=== PATIENT | male | born 1940 | race Caucasian/White ===

== ENCOUNTER → 2019-03-01 | Outpatient (CLI) | payer MEDICARE, OTHER ==
--- NOTE | 2019-03-02 20:14 | MR ---
EXAMINATION TYPE: MR lumbar spine wo con DATE OF EXAM: 03/01/2019 COMPARISON: NONE HISTORY: Low back pain into the left hip per patient. Osteoarthritis and disc degeneration per order. TECHNIQUE: Multiplanar, multisequence imaging of the lumbar spine is performed without IV contrast. FINDINGS: Sagittal images of the lumbar spine show vertebral body heights and alignment to appear sat isfactory. There is multilevel disc desiccation and disc space narrowing with advanced disc space vira rowing noted L3-L4 and L4-L5 levels. There is moderate to advanced multilevel anterior spurring. The conus medullaris is normal in position and signal ending at L1 level. There is heterogeneous Modic t ype II endplate changes at L3-L4 and to lesser degree L4-L5 levels. Axial images at the T12-L1 level shows moderate facet degenerative changes and ligamentum flavum hype rtrophy with mild broad disc bulge minimally effacing the anterior thecal sac. Axial images at the L1-L2 levels [id number] broad disc bulge effacing the anterior thecal sac w ith [id number]-lc-[id number] facet degenerative changes bilaterally effacing the posterior lateral thecal sac on axial image 23. Bilateral neural foramina remain patent. Axial images at the L2-L3 level shows moderate facet degenerative changes and ligamentum flavum hyper trophy effacing the posterior lateral thecal sac. There is moderate to advanced broad disc bulge with left paracentral disc protrusion component on axial image 18 effacing the anterior thecal sac. There is moderate left and mild right-sided inferior neural foraminal narrowing. Axial images at L3-L4 level show moderate to advanced facet degenerative changes bilaterally. Subtle spondylolisthesis is present. There is moderate to advanced broad disc bulge effacing the anterior th ecal sac. There is moderate to advanced right greater than left bilateral anterior inferior neural fo raminal narrowing. Axial images at the L4-L5 level show advanced broad disc bulge with central disc protrusion component and moderate to advanced facet degenerative changes bilaterally. There is effacement the anterior an d posterior lateral thecal sac with advanced left and moderate to advanced right-sided neural foramin al narrowing. Encroachment left L4 nerve is seen sagittal image 1 and axial image 8. Axial images at the L5-S1 level shows ckgp-mg-azdaopgx facet degenerative changes bilaterally. There is left paracentral disc protrusion effacing the anterior thecal sac. There is moderate to advanced b ilateral neural foraminal narrowing. There are several T2 hyperintense lesions throughout both kidneys felt to reflect simple thin-walled cysts. IMPRESSION: Multilevel fairly moderate to severe degenerative changes as detailed above.
--- NOTE | 2019-03-02 20:23 | MR ---
EXAMINATION TYPE: MR hip LT wo con DATE OF EXAM: 03/01/2019 COMPARISON: None HISTORY: Low back pain into the left hip Standard multiplanar, multisequence MRI departmental protocol Multiplanar, multisequence images of the pelvis focusing on the left hip were acquired. FINDINGS: There is moderate axial joint space loss in both hips, left slightly greater than right. No significant acetabular spurring is seen. There is heterogeneous round area of diminished T1 and incr eased T2 signal involving the superior medial humeral head with some subchondral cystic change seen b est coronal image 9 and axial image 14 measuring over a roughly 1.5 cm round area with some tiny subc hondral cystic change towards the joint space felt present. Some low T1 signal with slight scalloping is noted coronal image 8 and axial image 14. Adjacent glenoid shows some increased T2 signal. No cor tical destruction or free fragments are present. There are small to moderate left slightly larger oscar n the right hip joint effusions noted. Muscle bulk bilateral thighs is symmetric and felt within normal limits. No groin adenopathy. No susp icious groin hernias. Some increased signal level of greater trochanters bilaterally, left greater th an right is noted consistent with mild to moderate trochanteric bursitis. Prostate gland is heterogeneous in appearance and slightly enlarged suggestive of underlying BPH. No suspicious bowel dilatation. There is moderate to severe disc space narrowing L4-L5 and L5-S1 levels. IMPRESSION: Moderate to advanced left greater than right hip degenerative changes as detailed above w ith osseous edema noted on the left.
== END | disposition home or self-care (01) ==
LOC: RADMRIMAIN 13:35
PROVIDERS: ATTEND Family Medicine
DX: M47.817 Spondylosis without myelopathy or radiculopathy, lumbosacral region (principal); M47.816 Spondylosis without myelopathy or radiculopathy, lumbar region; M16.12 Unilateral primary osteoarthritis, left hip
CPT/HCPCS: 72148

== ENCOUNTER → 2019-04-17 | Outpatient (CLI) | payer MEDICARE | END | disposition home or self-care (01) | LOC: LABPAT 10:13 | PROVIDERS: ATTEND Orthopaedic Surgery | DX: Z01.812 Encounter for preprocedural laboratory examination (principal) | CPT/HCPCS: 87070 ==

== ENCOUNTER 2019-04-28 06:28 | Inpatient (IN) | payer MEDICARE, OTHER ==
--- NOTE | 2019-04-27 09:42 | HP ---
HISTORY AND PHYSICAL REASON FOR ADMISSION: Surgery is 04/28/2019 HISTORY OF PRESENT ILLNESS: Amari Silva is a 78-year-old patient seen with symptomatic left hip osteoarthritis. After having treatment options discussed with him, he elected to proceed with direct anterior left total hip arthroplasty. Consent regarding the procedure was obtained. Medical clearance was provided by Dr. Yefri Castro. PAST MEDICAL HISTORY: Hyperlipidemia, hypertension, zkm-qnmhwqx-qhotquhme diabetes, COPD. PAST SURGICAL HISTORY: Bilateral knee arthroscopy, lumbar laminectomy. MEDICATIONS: Aspirin, lisinopril, Norvasc, atorvastatin, metformin. ALLERGIES: ERYTHROMYCIN AND PENICILLIN. SOCIAL HISTORY: Denies current tobacco use. PHYSICAL EXAMINATION: Evaluation of the left hip: His range of motion is very limited with severe pain. Positive hip impingement sign. Straight leg raise negative. His distal neurovascular exam is intact. RADIOGRAPHS: Left hip radiographs reveal severe osteoarthritic changes. IMPRESSION: 1. Left hip osteoarthritis. 2. Hypertension. 3. Hyperlipidemia. 4. Teq-raimwbx-flonrnamy diabetes. PLAN: Direct anterior left total hip arthroplasty. Surgery scheduled for 04/28/2019. MMODL / IJN: [id number] /
[~2019-04-28 06:28] MED LIST: ACETAMINOPHEN TAB 500 MG TAB PO ONE; MELOXICAM 7.5 MG TAB PO ONE; TRANEXAMIC ACID 1,000 MG in SODIUM CHLORIDE 0.9% 100 ML IVPB ONE; ceFAZolin IN SWFI 2 GM/20 ML SYRINGE IVP ONE
[2019-04-28] MEDS ORDERED: ONDANSETRON 4 MG/2 ML VIAL IVP ONE (06:52)
[2019-04-28] MEDS ORDERED: LIDOCAINE 1% 20 ML VIAL (10MG/ML) FOR IV START INTRADERMA PRN (06:52)
[2019-04-28] MEDS ORDERED: DEXAMETHASONE SOD PHOSPHATE 10 MG/ML 1 ML VIAL IV ONE (06:52)
[2019-04-28] MEDS ORDERED: MIDAZOLAM 2 MG/2 ML VIAL IV PRN (06:52)
[2019-04-28] MEDS: LACTATED RINGERS 1,000 ML IV SCH (07:09)
[2019-04-28 07:16] LABS: Glucose,Whole Blood 117 mg/dL (75-99)
[2019-04-28] MEDS ORDERED: PROPOFOL 10 MG/ML 20 ML VIAL IV ONE (07:24)
[2019-04-28] MEDS ORDERED: ePHEDrine SULFATE/0.9% NACL/PF 50 MG/5 ML SYRINGE IV ONE (07:24)
[2019-04-28] MEDS ORDERED: fentaNYL (PF) 50 MCG/ML 2 ML AMP ONE (07:24)
[2019-04-28] MEDS ORDERED: MORPHINE SULFATE 10 MG/ML SYRINGE ONE (07:24)
[2019-04-28] MEDS ORDERED: MIDAZOLAM 2 MG/2 ML VIAL ONE (07:24)
[2019-04-28 07:25] LABS: Prothrombin Time 10.8 sec (9.0-12.0)
[2019-04-28] MEDS ORDERED: ROPIVACAINE 246.25 MG, EPINEPHrine 0.5 MG, KETOROLAC 30 MG, cloNIDine HCL/PF 80 MCG, WA... MISCELLANE ONE ×5 (07:38)
[2019-04-28] MEDS ORDERED: ceFAZolin 3,000 MG in SODIUM CHLORIDE 0.9% IRRIGATIO 3,000 ML IRRIGATION ONE (08:17)
[2019-04-28] MEDS ORDERED: LACTATED RINGERS 1,000 ML IV ONE (09:31)
[2019-04-28] MEDS ORDERED: HYDROcodone/APAP 5-325MG 1 EACH TAB PO PRN (09:37)
[2019-04-28] MEDS ORDERED: HYDROmorphone 0.5 MG/0.5 ML SYRINGE IVP PRN ×3 (09:37)
[2019-04-28] MEDS ORDERED: ONDANSETRON 4 MG/2 ML VIAL IVP PRN (09:37)
[2019-04-28] MEDS ORDERED: traMADol 50 MG TAB PO PRN (09:37)
[2019-04-28] MEDS ORDERED: NALOXONE 0.4 MG/ML 1 ML VIAL IV PRN (09:37)
--- NOTE | 2019-04-28 09:37 | P.OP ---
Date of Procedure: 04/28/19 Preoperative Diagnosis: Left hip osteoarthritis Postoperative Diagnosis: Left hip osteoarthritis Procedure(s) Performed: Direct anterior left total hip arthroplasty Implants: 1. Depuy Corail KLA size 14 high offset press-fit femoral stem 2. Depuy pinnacle 58 mm multi hole press-fit acetabular shell 3. Depuy pinnacle neutral polyethylene acetabular liner 36 mm ID 58 mm OD 4. Biolox delta ceramic femoral head +5 36 mm Anesthesia: local, spinal Surgeon: Reinier Rios Furnace Tapper #1: Eric Johnson Estimated Blood Loss (ml): 500 Pathology: other (Femoral head) Condition: stable Disposition: PACU Indications for Procedure: 78-year-old patient seen with symptomatic left hip osteoarthritis. After we discussed treatment options, he elected to proceed with left total hip arthroplasty. Operative Findings: see description of procedure Description of Procedure: The patient was taken to the operative suite. Patient underwent a spinal anesthetic by the department of anesthesia. Patient was then transferred to the [place] table. Patient was given preoperative IV antibiotics and TXA. Both lower extremities were placed in standard leg spars. The hip was then prepped and draped in the normal sterile orthopedic fashion. A standard anterior incision was made beginning 3 cm lateral and 1 cm distal to the ASIS extending 10 cm. Dissection was then carried down through the subcutaneous soft tissues down to the fascia overlying the tensor fascia jay. An incision was now made through the fascia. Careful dissection was taken down exposing the tensor fascia jay muscle. A Cobra retractor was now placed along the medial femoral neck and a second one along the lateral femoral neck. The venous circumflex vessels were now identified, cauterized and clipped. We identified the anterior hip capsule. An incision was made through the hip capsule along the lateral border. I performed a partial anterior capsulectomy. Retractors were now placed around the femoral neck itself. A femoral neck cut was now made with a sagittal saw. It was completed with an osteotome at the lateral neck area. The femoral head was now removed without difficulty. The extremity was now rotated to 45 of external rotation. It was locked in position. Residual labrum was now debrided out. Serial reaming was performed of the acetabulum while Vikram VINCENT assisted holding an anterior retractor for exposure. Once we reached the appropriate size and a trial was position and fit nicely. The appropriate size was now chosen opened and made available. It was introduced into the acetabulum without difficulty. The C-arm/fluoroscopy was now brought into the operative field. We made sure we had a true AP pelvic view. We now under direct C- arm/fluoroscopy introduced into the acetabular component with appropriate version and inclination. I held the cup in appropriate position well Vikram VINCENT used a mallet to seat the acetabular component. I noted the component now to be well seated and stable. Acetabular cup introduce her was removed. The C-arm was pulled back. An appropriate liner was introduced and clicked into position. It was felt to be stable. At this point retractors were removed. The extremity was now placed into 120 external rotation with no traction. The leg was now dropped to the ground and adducted. Appropriate retractors were now positioned along the proximal femur. We also placed our femoral look into position. Additional capsular releasing was performed to gain access to the proximal femur. We now used a box osteotome. A canal finder was now utilized. Serial broaching was now performed with the assistance of Vikram VINCENT tapping the broaches down with a mallet while held the broach in appropriate rotation and position. This was done until we reached the appropriate size with good overall rotational stability. Appropriate calcar planing was performed. A trial head/neck was placed into position. The hip was now reduced. The C- arm/fluoroscopy was brought back into the operative field. A spot film was obtained of the nonoperative hip. A spot film was obtained of the trial components. Overlays were performed, we noted good overall alignment and positioning for determining leg length. The C-arm/fluoroscopy was pulled back. Retractors were repositioned and the hip was dislocated. The leg was again taken down to the ground and adducted. Appropriate retractors were repositioned as well as the femoral hook. All trial components were removed. The femoral implant was opened along with the femoral head. The femoral implant was introduced on the appropriate handle into our pre-broached area. I held the component position well Vikram VINCENT used a mallet to seat the femoral component. The femoral component was now noted to be well seated and stable.. The femoral head was introduced with good positioning and fixation noted. Retractors were now removed. The hip was now reduced. There appeared be good positioning of the hip confirmed on intraoperative fluoroscopy. Spot films were obtained to document this. A second gram of TXA was given. The deep and superficial soft tissues were infiltrated with local analgesic. Bipolar cautery had been utilized intermittently through the procedure for hemostasis. The wound was irrigated copiously with pulse lavage mechanical irrigation. The fascia was repaired with Vicryl suture. The subcutaneous soft tissues were repaired in layers with Vicryl suture. The skin was approximated with pernio/Dermabond. Sterile dressings were applied. Patient was then awakened, transferred to a bed and taken to recovery in stable condition. Vikram VINCENT assisted with the complex procedure.
--- NOTE | 2019-04-28 10:36 | FL ---
Fluoroscopy INDICATION: Pain FINDINGS: Fluoroscopy time: 42 seconds. Images obtained: 1. IMPRESSIONS: 1. Documentation of fluoroscopy.
--- NOTE | 2019-04-28 10:40 | XR ---
Fluoroscopy INDICATION: Pain FINDINGS: Fluoroscopy time: 42 seconds. Images obtained: 1. Single image over the left hip prosthesis placed. IMPRESSIONS: 1. Documentation of fluoroscopy.
[2019-04-28 10:41] LABS: HCT 39.2 % (39.0-53.0); HGB 12.4 gm/dL (13.0-17.5); MCH 28.6 pg (25.0-35.0); MCHC 31.6 g/dL (31.0-37.0); MCV 90.5 fL (80.0-100.0); Mean Platelet Volume 7.1; Platelet Count 233 k/uL (150-450); RBC 4.34 m/uL (4.30-5.90); RDW 13.4 % (11.5-15.5); WBC 15.4 k/uL (3.8-10.6)
[2019-04-28 10:48] LABS: Glucose,Whole Blood 179 mg/dL (75-99)
[2019-04-28 15:08] VITALS: BMI 27.4
[2019-04-28] MEDS: SODIUM CHLORIDE 0.9% 1,000 ML IV SCH (15:50)
[2019-04-28] MEDS: ceFAZolin IN SWFI 2 GM/20 ML SYRINGE IVP SCH ×2 (15:50→23:36)
[2019-04-28 17:01] LABS: Glucose,Whole Blood 270 mg/dL (75-99)
[2019-04-28 17:15] LABS: Glucose,Whole Blood 223 mg/dL (75-99)
[2019-04-28] MEDS: HYDROcodone/APAP 5-325MG 1 EACH TAB PO PRN (19:11)
[2019-04-28 20:13] LABS: Glucose,Whole Blood 224 mg/dL (75-99)
[2019-04-28] MEDS ORDERED: amLODIPine 10 MG TAB PO SCH (21:00)
[2019-04-28] MEDS ORDERED: LISINOPRIL 20 MG TAB PO SCH (21:00)
[2019-04-28] MEDS ORDERED: SENNOSIDES-DOCUSATE SODIUM 1 EACH TAB PO SCH (21:00)
[2019-04-28] MEDS ORDERED: metFORMIN 500 MG TAB PO SCH (21:00)
[2019-04-28] MEDS ORDERED: ATORVASTATIN 20 MG TAB PO SCH (21:00)
--- NOTE | 2019-04-28 23:46 | P.CONS ---
History of Present Illness - Reason for Consult Consult date: 04/28/19 Medical management Requesting physician: Reinier Rios - Chief Complaint Left hip pain - History of Present Illness Consultation: This is a pleasant 78-year-old patient of Dr. Castro. We'll make stable medical conditions include diabetes, hyperlipidemia, hypertension, primary osteoarthritis. Patient also seems to have single-vessel coronary artery disease. He was told by his mapping engineer at the did attempt to put in a stent but the vessel was too small and hence it was left like that. He's not had any further trouble with that. Patient today underwent left total hip arthroplasty. Has minimal pain. No nausea vomiting. No chest pain. Did tolerate her meals. Sitting up in bed. Comfortable. Review of systems: GEN.: None EYES: None HEENT: None NECK: None RESPIRATORY: None CARDIOVASCULAR: None GASTROINTESTINAL: None GENITOURINARY: None MUSCULOSKELETAL: Pain in some joints LYMPHATICS: None HEMATOLOGICAL: None PSYCHIATRY: None NEUROLOGICAL: None. Past medical history to include: Single-vessel coronary artery disease that was not amenable to stent per patient's mapping engineer Social history: Does smoke in the past. . 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 Family history: Possible sarcoma Physical examination: VITAL SIGNS: 98.6, 73, 17, 151/77, 97% on room air GENERAL: BMI 27.2, propped up in bed, comfortable. EYES: Pupils equal. Conjunctiva normal. HEENT: External appearance of nose and ears normal, oral cavity grossly normal. NECK: JVD not raised; masses not palpable. HEART: First and second heart sounds are normal; no edema. LUNGS: Respiratory rate normal; clear to auscultation. ABDOMEN: Soft, nontender, liver spleen not palpable, no masses palpable. PSYCH: Alert and oriented x3; mood and affect normal. NEUROLOGICAL: Cranial nerves grossly intact; no facial asymmetry, power and sensation grossly intact. LYMPHATICS: No lymph nodes palpable in the axilla and neck MUSCULOSKELETAL: Dressing over the left hip. Evidence of OA especially in the hands Investigations, reviewed in the clinical context: White count 15.4 hemoglobin 12.4 Accu-Cheks noted-270, 223, 224 Assessment: -Left total hip arthroplasty -Diabetes mellitus type 2 on oral hypoglycemic -Hyperlipidemia -Essential hypertension -Primary osteoarthritis -Possible single-vessel coronary artery disease, asymptomatic Plan: Home medications resumed. Patient is on Lovenox for DVT prophylaxis. Accu- Cheks will be followed. Care was discussed with the patient. Questions were answered. Thank you Dr. Zmabrano Past Medical History Past Medical History: Diabetes Mellitus, Hyperlipidemia, Hypertension, Osteoarthritis (OA) History of Any Multi-Drug Resistant Organisms: None Reported Past Surgical History: Back Surgery, Heart Catheterization, Orthopedic Surgery Additional Past Surgical History / Comment(s): bilat knees arthoscopy, lumbar laminectomy, colonoscopy, warthins parotid cyst removal Past Anesthesia/Blood Transfusion Reactions: No Reported Reaction Additional Past Anesthesia/Blood Transfusion Reaction / Comm: aggitation with laminectomy anesthesia Past Psychological History: No Psychological Hx Reported Smoking Status: Former smoker Past Alcohol Use History: None Reported Past Drug Use History: None Reported - Past Family History Mother Family Medical History: Cancer Additional Family Medical History / Comment(s): sarcoma ? Medications and Allergies Home Medications Medication Instructions Recorded Confirmed Type Acetaminophen [Tylenol] 650 mg PO [facility] 04/16/19 04/28/19 History Aspirin [Adult Low Dose Aspirin EC] 81 mg PO [facility] 04/16/19 04/28/19 History Atorvastatin [Lipitor] 20 mg PO 04/16/19 04/28/19 History Cholecalciferol (Vitamin D3) 2,000 unit PO [facility] 04/16/19 04/28/19 History [Vitamin D3] Cyanocobalamin [Vitamin B-12] 500 mcg PO [facility] 04/16/19 04/28/19 History Lisinopril 20 mg PO 04/16/19 04/28/19 History Lisinopril-Hctz 20-12.5 mg 1 tab PO [facility] 04/16/19 04/28/19 History [Zestoretic 20-12.5] amLODIPine [Norvasc] 10 mg PO 04/16/19 04/28/19 History metFORMIN HCL 1,000 mg PO 04/16/19 04/28/19 History Allergies Allergy/AdvReac Type Severity Reaction Status Date / Time Penicillins Allergy Rash/Hives Verified 04/28/19 15:10 erythromycin base AdvReac flu like Verified 04/28/19 15:10 symptoms Physical Exam Vitals: Vital Signs Temp Pulse Pulse Resp BP BP Pulse Ox 04/28/19 20:40 98.6 F 73 17 151/77 97 07/08/19 14:46 97.6 F 81 15 155/80 99 04/28/19 13:45 73 16 124/67 98 04/28/19 12:45 67 16 133/74 98 04/28/19 12:15 72 16 119/57 100 04/28/19 11:45 68 16 103/56 98 04/28/19 11:15 56 L 16 108/51 96 04/28/19 10:45 52 L 16 106/51 99 04/28/19 10:30 64 16 113/58 97 04/28/19 10:15 67 18 119/51 97 04/28/19 10:00 59 L 16 122/53 97 04/28/19 09:48 97.0 F L 65 12 111/59 97 04/28/19 07:05 97.7 F 73 16 172/77 98 Intake and Output 04/28/19 04/28/19 04/29/19 14:59 22:59 06:59 Intake Total 1702 240 Output Total 500 Balance 1202 240 Intake: IV 1702 Oral 240 Output: Estimated Blood Loss 500 Other: # Voids 1 # Bowel Movements 1 Results CBC & Chem 7: 04/28/19 10:19 Labs: Abnormal Lab Results - Last 24 Hours (Table) 04/28/19 04/28/19 04/28/19 Range/Units 07:14 09:58 10:19 WBC 15.4 H (3.8-10.6) k/uL Hgb 12.4 L (13.0-17.5) gm/dL POC Glucose (mg/dL) 117 H 179 H (75-99) mg/dL 04/28/19 04/28/19 04/28/19 Range/Units 16:56 17:13 20:10 WBC (3.8-10.6) k/uL Hgb (13.0-17.5) gm/dL POC Glucose (mg/dL) 270 H 223 H 224 H (75-99) mg/dL
[2019-04-29] MEDS: SODIUM CHLORIDE 0.9% 1,000 ML IV SCH (03:43)
[2019-04-29] MEDS: LACTATED RINGERS 1,000 ML IV SCH (03:45)
[2019-04-29 06:45] VITALS: BP 125/62; PULSE 76; RESP 16; TEMP 98.2
[2019-04-29 07:08] LABS: Glucose,Whole Blood 118 mg/dL (75-99)
[2019-04-29] MEDS: HYDROcodone/APAP 5-325MG 1 EACH TAB PO PRN ×2 (07:37→11:48)
[2019-04-29 08:59] LABS: Basophils % (A) 0 %; Eosinophils # (A) 0.1 k/uL (0-0.7); Eosinophils % (A) 0 %; HCT 34.1 % (39.0-53.0); HGB 11.1 gm/dL (13.0-17.5); Lymphocytes # (A) 0.8 k/uL (1.0-4.8); Lymphocytes % (A) 8 %; MCH 28.9 pg (25.0-35.0); MCHC 32.6 g/dL (31.0-37.0); MCV 88.5 fL (80.0-100.0); Mean Platelet Volume 8.1; Monocytes # (A) 0.8 k/uL (0-1.0); Monocytes % (A) 8 %; Neutrophils # (A) 8.5 k/uL (1.3-7.7); Neutrophils % (A) 83 %; Platelet Count 207 k/uL (150-450); RBC 3.85 m/uL (4.30-5.90); RDW 13.9 % (11.5-15.5); WBC 10.3 k/uL (3.8-10.6)
[2019-04-29] MEDS ORDERED: LISINOPRIL-HCTZ 20-12.5 MG 1 EACH TAB PO SCH (09:00)
[2019-04-29] MEDS ORDERED: FAMOTIDINE 20 MG TAB PO SCH (09:00)
[2019-04-29] MEDS ORDERED: ENOXAPARIN 40 MG/0.4 ML SYRINGE SQ SCH (09:00)
[2019-04-29] MEDS ORDERED: CYANOCOBALAMIN 500 MCG TAB PO SCH (09:00)
[2019-04-29 11:33] LABS: Glucose,Whole Blood 131 mg/dL (75-99)
--- NOTE | 2019-04-29 11:35 | P.PN ---
Subjective Progress Note Date: 04/29/19 Principal diagnosis: Status post left total hip arthroplasty Patient evaluated bedside, his is present. He denies no pain. He is ambulating well with therapy. Denies any shortness of breath or chest pain. Objective - Vital Signs Vital signs: Vital Signs Temp 98.2 F 04/29/19 06:42 Pulse 76 04/29/19 10:51 Resp 16 04/29/19 06:42 BP 125/62 04/29/19 06:42 Pulse Ox 99 04/29/19 01:41 Intake & Output 04/28/19 04/29/19 04/29/19 18:59 06:59 18:59 Intake Total 1942 Output Total 500 Balance 1442 Intake: IV 1702 Oral 240 Output: Estimated Blood Loss 500 Other: Voiding Method Toilet # Voids 2 # Bowel Movements 1 - Exam Left lower extremity: Incision is clean, dry, and intact. The exofin fusion tape is in good condition. There is minimal soft tissue swelling and ecchymosis surrounding the medial and lateral aspects of the incision. Calf is soft, no tenderness with palpation. Plantar flexion, dorsiflexion, EHL, FHL are intact. Sensory exam to light touch throughout the extremity is intact, dorsal pedis pulses 2+. - Labs CBC & Chem 7: 04/29/19 08:27 Labs: Abnormal Lab Results - Last 24 Hours (Table) 04/28/19 04/28/19 04/28/19 Range/Units 16:56 17:13 20:10 RBC (4.30-5.90) m/uL Hgb (13.0-17.5) gm/dL Hct (39.0-53.0) % Neutrophils # (1.3-7.7) k/uL Lymphocytes # (1.0-4.8) k/uL POC Glucose (mg/dL) 270 H 223 H 224 H (75-99) mg/dL 04/29/19 04/29/19 Range/Units 07:07 08:27 RBC 3.85 L (4.30-5.90) m/uL Hgb 11.1 L (13.0-17.5) gm/dL Hct 34.1 L (39.0-53.0) % Neutrophils # 8.5 H (1.3-7.7) k/uL Lymphocytes # 0.8 L (1.0-4.8) k/uL POC Glucose (mg/dL) 118 H (75-99) mg/dL Assessment and Plan Plan: Assessment: Postoperative day 1 status post right anterior left total hip arthroplasty Plan: Pain control, patient has pain medication at home GI and DVT prophylaxis, aspirin 81 mg twice a day Wound care instructions discussed Prescription placed to be in outpatient therapy Icing and elevating techniques discussed Patient will be discharged home today Time with Patient: Less than 30
--- NOTE | 2019-04-29 11:36 | P.DS ---
Providers Date of admission: 04/28/19 06:28 Expected date of discharge: 04/29/19 Attending physician: Reinier Rios Consults: 04/28/19 09:37 Consult Physician Routine Consulting Provider: Yefri Castro Reason/Comments: Medical management Do you want consulting provider notified?: Yes Primary care physician: Yefri Castro [facility] Course: Date of admission: 04/28/2019 Date of discharge: 04/29/2019 Admission diagnosis: Status post direct anterior left total hip arthroplasty Discharge diagnosis: Same Attending physician: Dr. Rios Surgical procedures: Direct anterior left total hip arthroplasty Brief history: Patient is a 78-year-old male with a history of progressive primary left hip osteoarthritis. At this point patient has failed conservative treatment measures and has opted to proceed with a elective direct anterior left total hip arthroplasty. Hospital course: Details of patient's surgery can be found in operative report. Patient tolerated the procedure well and was subsequently transported to orthopedic floor. Patient's orthopeidc and medical care was provided daily. Patient had daily laboratory tests performed for evaluation of overall blood counts. Patient had daily physical therapy to include strengthening range of motion as well as education with walker ambulation. Patient was treated with Lovenox for their postoperative DVT prophylaxis during their inpatient stay. Patient was noted to have a relatively uneventful postoperative course. Patient reported satisfactory pain control with oral pain medications by postoperative day 0. Patient showed satisfactory progress with physical therapy. Patient moved steadily through the program and had no difficulty meeting the goals by postoperative day 1. Given patient's otherwise satisfactory course and having met physical therapy goals, plan is to discharge patient home on postoperative day 1. Discharge condition/disposition: Patient will be discharged home in stable condition. Discharge medications: Instructions are given on resumption of patient's normal daily medications per primary care recommendation, in addition patient will be prescribed aspirin 81 mg. Discharge instructions: 1. Wound care and infection precautions, keep incision dry and covered while showering, no lotions, creams, moisturizers. No soaking, tubs, pools, hottubs. Do not scrub over the incision. 2. Weight-bear as tolerated with walker / cane until follow-up. 3. Ice and elevate when necessary. Do not exceed 20 minutes per hour with ice pack. 4. Utilize compression sleeve until seen at first follow up appointment. 5. Visiting nursing care. 6. Home physical therapy. 7. Pain meds and anticoagulants per prescription. 8. Pain medication has potential to cause constipation. Increase oral fluid and fiber intake. Contact primary care provider if you have not had a bowel movement within 48 hours after discharge 9. No anti-inflammatory medication until discussed at first post operative visit, this including Motrin, Aleve, Mobic, Diclofenac. 10. Follow up in office at 2 weeks postop with Vikram Johnson PA-C 11. Follow up with your primary care doctor 7-10 days after discharge. 12. Contact [facility] with any questions, . Procedures: Direct anterior left total hip arthroplasty Patient Condition at Discharge: Good Plan - Discharge Summary Discharge Rx Participant: Yes New Discharge Prescriptions: New Aspirin [Adult Low Dose Aspirin EC] 81 mg PO BID #60 tablet. No Action Acetaminophen [Tylenol] 650 mg PO QAM Cyanocobalamin [Vitamin B-12] 500 mcg PO QAM metFORMIN HCL 1,000 mg PO HS amLODIPine [Norvasc] 10 mg PO HS Atorvastatin [Lipitor] 20 mg PO HS Lisinopril-Hctz 20-12.5 mg [Zestoretic 20-12.5] 1 tab PO QAM Lisinopril 20 mg PO HS Cholecalciferol (Vitamin D3) [Vitamin D3] 2,000 unit PO QAM Discharge Medication List Acetaminophen [Tylenol] 650 mg PO QAM 04/16/19 [History] Atorvastatin [Lipitor] 20 mg PO HS 04/16/19 [History] Cholecalciferol (Vitamin D3) [Vitamin D3] 2,000 unit PO QAM 04/16/19 [History] Cyanocobalamin [Vitamin B-12] 500 mcg PO QAM 04/16/19 [History] Lisinopril 20 mg PO HS 04/16/19 [History] Lisinopril-Hctz 20-12.5 mg [Zestoretic 20-12.5] 1 tab PO QAM 04/16/19 [History] amLODIPine [Norvasc] 10 mg PO HS 04/16/19 [History] metFORMIN HCL 1,000 mg PO HS 04/16/19 [History] Aspirin [Adult Low Dose Aspirin EC] 81 mg PO BID #60 tablet. 04/29/19 [Rx] Follow up Appointment(s)/Referral(s): Yefri Castro DO [Primary Care Provider] - 05/06/19 9:40 am (With ENGINEERING SYSTEMS ANALYST) Eric Johnson PAC [PHYSICIAN SCOOPING MACHINE TENDER] - 05/14/19 3:10 pm Activity/Diet/Wound Care/Special Instructions: Orthopedic Discharge Instructions: 1. Wound care and infection precautions, keep incision dry and covered while showering, no lotions, creams, moisturizers. No soaking, pools, hot tubs. Do not scrub over incision. 2. Weight-bear as tolerated with walker / cane until follow-up. 3. Ice and elevate when necessary. Do not exceed 20 minutes per hour with ice pack. 4. Utilize compression sleeve until seen at first follow up appointment. 5. Pain meds and anticoagulants per prescription. 6. Pain medication has potential to cause constipation. Increase oral fluid and fiber intake. Contact primary care provider if you have not had a bowel movement within 48 hours after discharge. 7. No anti-inflammatory medication until discussed at first post operative visit, this including Motrin, Aleve, Mobic, Diclofenac. 8. Follow up in office at 2 weeks postop with Vikram Johnson PA-C 9. Follow up with your primary care doctor 7-10 days after discharge. 10. Contact [facility] with any questions, [phone]. 11. Begin outpatient physical therapy as discussed, no need for home care serv ices Discharge Disposition: HOME WITH HOME HEALTH SERVICES
== END 2019-04-29 12:11 | disposition home or self-care (01) | DRG 470 ==
LOC: 2ORMAIN 06:28 → 4SSUR 14:30
PROVIDERS: ADMIT Orthopaedic Surgery; ATTEND Orthopaedic Surgery
PROC: 0SRB04A Replacement of Left Hip Joint with Ceramic on Polyethylene Synthetic Substitute, Uncemented, Open Approach (ICD-10-PCS; principal; 2019-04-28 07:30)
DX: M16.12 Unilateral primary osteoarthritis, left hip (principal); J44.9 Chronic obstructive pulmonary disease, unspecified; E11.9 Type 2 diabetes mellitus without complications; I10 Essential (primary) hypertension; E78.5 Hyperlipidemia, unspecified; E55.9 Vitamin D deficiency, unspecified; N40.0 Benign prostatic hyperplasia without lower urinary tract symptoms; I25.10 Atherosclerotic heart disease of native coronary artery without angina pectoris; Z79.84 Long term (current) use of oral hypoglycemic drugs; Z79.82 Long term (current) use of aspirin; Z79.899 Other long term (current) drug therapy; Z87.891 Personal history of nicotine dependence; Z90.89 Acquired absence of other organs; Z88.1 Allergy status to other antibiotic agents; Z88.0 Allergy status to penicillin; Z80.8 Family history of malignant neoplasm of other organs or systems
CPT/HCPCS: 73501; 85025; 85027; 85610; 85730; 86850; 86900; 86901; 88300

== ENCOUNTER → 2019-07-10 | Day surgery (SDC) | payer MEDICARE, OTHER ==
[2019-07-07 13:59] VITALS: BMI 27.3
--- NOTE | 2019-07-09 14:25 | HP ---
HISTORY AND PHYSICAL DATE OF SERVICE: 07/10/2019 Fredrick Silva is a 78-year-old patient seen with symptomatic right carpal tunnel syndrome along with trigger fingers along the right index finger and right ring finger. After treatment options were discussed with him, he elected to proceed with operative intervention including decompression right median nerve and release A1 jp of the right index finger and right ring finger. Consent regarding the procedure was obtained. PAST MEDICAL HISTORY: Hypertension, hyperlipidemia, nei-deoozsd-ghfwwmomc diabetes. PAST SURGICAL HISTORY: Total hip arthroplasty, lumbar laminectomy, knee arthroscopy. DAILY MEDICATIONS: Aspirin, lisinopril, Norvasc, atorvastatin, metformin. ALLERGIES: PENICILLIN, ERYTHROMYCIN. SOCIAL HISTORY: Denies tobacco use, PHYSICAL EVALUATION RIGHT HAND: Positive carpal compression, carpal Tinel's causing numbness. Tender in the median nerve distribution. Tenderness along the A1 jp areas of the right index finger and right ring finger. There is some decreased sensation throughout the median nerve distribution. RADIOGRAPHS OF THE HAND: Reveal some mild osteoarthritic changes. IMPRESSION: 1. Right carpal tunnel syndrome. 2. Right index finger, trigger finger. 3. Right ring finger, trigger finger. PLAN: Decompression of right median nerve along with release A1 pulleys of the right index finger and right ring finger. MMODL / IJN: [id number] /
[~2019-07-10] MED LIST changes: -ACETAMINOPHEN TAB 500 MG TAB PO ONE; +BUPIVACAINE (PF) 0.25% 30 ML VIAL SQ ONE; +DEXAMETHASONE SOD PHOSPHATE 10 MG/ML 1 ML VIAL IV ONE; +LACTATED RINGERS 1,000 ML IV SCH; +LIDOCAINE 1% 20 ML VIAL (10MG/ML) FOR IV START INTRADERMA PRN; +LIDOCAINE 1% INJ 10MG/ML (20 ML MDV) ONE; -MELOXICAM 7.5 MG TAB PO ONE; +MIDAZOLAM 2 MG/2 ML VIAL ONE; +ONDANSETRON 4 MG/2 ML VIAL IVP ONE; +PROPOFOL 10 MG/ML 20 ML VIAL IV ONE; -TRANEXAMIC ACID 1,000 MG in SODIUM CHLORIDE 0.9% 100 ML IVPB ONE; -ceFAZolin IN SWFI 2 GM/20 ML SYRINGE IVP ONE; +fentaNYL (PF) 50 MCG/ML 2 ML AMP ONE
[2019-07-10 12:12] LABS: Glucose,Whole Blood 109 mg/dL (75-99)
[2019-07-10 12:31] VITALS: RESP 16; TEMP 98
--- NOTE | 2019-07-10 13:36 | P.OP ---
Date of Procedure: 07/10/19 Preoperative Diagnosis: 1. Right carpal tunnel syndrome 2. Right index finger trigger finger 3. Right ring finger trigger finger Postoperative Diagnosis: Same Procedure(s) Performed: 1. Decompression right median nerve 2. Release A1 jp right index finger 3. Release A1 jp right ring finger Anesthesia: MAC, local Surgeon: Reinier Rios Estimated Blood Loss (ml): 1 Pathology: none sent Condition: stable Disposition: PACU Indications for Procedure: 78-year-old patient seen with symptomatic right carpal tunnel syndrome as well as symptomatic right index finger and right ring finger trigger fingers. After treatment options were discussed with him, he elected to proceed with surgical intervention. Operative Findings: see description of procedure Description of Procedure: The patient was taken to the operative suite. The patient received preoperative IV antibiotics. A well-padded tourniquet was placed along the proximal upper extremity. The right upper extremity was prepped and draped in the normal sterile orthopedic fashion. The patient underwent IV sedation by the department of anesthesia. I infiltrated all 3 proposed incision sites with quarter percent plain Marcaine totaling 18 mL. I now elevated the extremity and insufflated the tourniquet to 250. I now made an incision beginning at the distal volar wrist crease extending distally approximately 3 cm in line with the fourth metacarpal sharply through skin. I carefully dissected down to the transverse carpal ligament. I now incised the transverse carpal ligament. I completed the release proximally and distally with blunt Metzenbaums. There was good complete release of the transverse carpal ligament. There was good decompression of the nerve. I now made an incision in the area A1 jp right index finger. I carefully d issected down to the A1 jp area. I now incised the A1 jp area. I completed the release with blunt tenotomies. There was good complete release of the A1 jp with complete decompression of the tendon. There was good excursion of the tendon with no impingement. I now made an incision area A1 jp right ring finger. I carefully dissected down to the A1 jp area. I now incised the A1 jp area. I completed the release with blunt tenotomies. There was good complete release the A1 jp with complete decompression of the tendon. There was good excursion of the tendon with no impingement. All wounds were irrigated. I repaired all 3 incisions utilizing 4-0 nylon. Sterile dressings were applied. Sterile web roll was applied. The tourniquet was released with immediate capillary refill noted of all digits. I now applied a sterile Coband. The patient was now awakened having tolerated the procedure well. He was transferred to recovery in stable condition.
[2019-07-10 13:49] VITALS: BP 134/61
[2019-07-10 13:51] VITALS: PULSE 58
== END ==
LOC: OR 11:40
PROVIDERS: ATTEND Orthopaedic Surgery
DX: G56.01 Carpal tunnel syndrome, right upper limb (principal); M65.321 Trigger finger, right index finger; M65.341 Trigger finger, right ring finger; M19.049 Primary osteoarthritis, unspecified hand; I10 Essential (primary) hypertension; E78.5 Hyperlipidemia, unspecified; E11.9 Type 2 diabetes mellitus without complications; Z96.649 Presence of unspecified artificial hip joint; Z98.890 Other specified postprocedural states; Z79.84 Long term (current) use of oral hypoglycemic drugs; Z79.82 Long term (current) use of aspirin; Z79.899 Other long term (current) drug therapy; Z88.1 Allergy status to other antibiotic agents; Z88.0 Allergy status to penicillin; Z87.891 Personal history of nicotine dependence
CPT/HCPCS: 64721; 26055 ×2; J2250; J1100; J0690; J2405; J2001; J3010; J2704

== ENCOUNTER → 2023-02-28 | Outpatient (CLI) | payer MEDICARE, OTHER ==
--- NOTE | 2023-02-28 21:25 | MR ---
EXAMINATION TYPE: MR lumbar spine wo con DATE OF EXAM: 02/28/2023 COMPARISON: 03/01/2019 HISTORY: 82-year-old male M54.50, low back pain and prior surgery. TECHNIQUE: Multiplanar, multisequence images of the lumbar spine were acquired without IV contrast. FINDINGS: Bilateral renal cysts measuring up to at least 4.5 cm. Area of prominent crescentic atherosclerotic p laque within the abdominal aorta. There is advanced multilevel degenerative disc disease with narrowed, desiccated, diffusely bulging d iscs. Associated endplate irregularity and mild Modic type I endplate change scattered throughout. Multilevel ligamentum flavum thickening and hypertrophic facet arthropathy is also present. 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 No suspicious bone marrow replacement. Conus medullaris is normal. There is a component of mild congenital spinal canal stenosis with AP canal dimension of 1.2 cm. Disc bulges and ligamentum flavum thickening at multiple levels further narrows the spinal canal. Canal stenosis is moderate to severe at L2-L3 and L3-L4. Minimal CSF signal remains along the cauda e quina nerve roots at these levels. The degree of narrowing is similar compared to 03/01/2019. Canal stenosis is mild to moderate at L4-L5 and L1-L2. Mild T12-L1. On the right, changes result in moderate overall neuroforaminal stenosis from L3 through S1 levels wi th possible impingement of the exiting right L5 nerve root (at L5-S1). On the left, there is moderate neural foraminal stenosis at both L2-L3 and L4-L5. Possible abutment o f the exiting left L4 nerve root at L4-L5. Severe left neuroforaminal stenosis at L5-S1. IMPRESSION: 1. Advanced multilevel degenerative disc disease with multilevel ligamentum flavum thickening and hyp ertrophic facet arthropathy. 2. Disc bulges and ligamentum flavum thickening further narrows the spinal canal at multiple levels. 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 3. There is overall moderate to severe spinal canal stenosis at L2-L3 and L3-L4 (relatively similar c ompared to 03/01/2019). 4. Mild to moderate spinal canal stenosis at L1-L2 and L4-L5. Mild at T12-L1. 5. Variable neuroforaminal stenoses as outlined above. This is severe on the left L5-S1. Moderate at multiple levels on the right with possible impingement of the exiting right L5 nerve root at L5-S1. O n the left, possible abutment of the exiting left L4 nerve root at L4-L5.
== END | disposition home or self-care (01) ==
LOC: RADMRIMAIN 15:18
PROVIDERS: ATTEND Orthopaedic Surgery
DX: M47.816 Spondylosis without myelopathy or radiculopathy, lumbar region (principal); M51.26 Other intervertebral disc displacement, lumbar region; M48.061 Spinal stenosis, lumbar region without neurogenic claudication; M99.73 Connective tissue and disc stenosis of intervertebral foramina of lumbar region
CPT/HCPCS: 72148

== ENCOUNTER → 2023-04-04 | Outpatient (CLI) | payer MEDICARE, OTHER ==
[2023-04-04 12:28] VITALS: BP 154/79; PULSE 59; RESP 18; TEMP 98
--- NOTE | 2023-04-04 15:02 | P.PAINPG ---
PQRS Measure Charge Sheet Comment: HISTORY OF PRESENT ILLNESS: 82 yr old male w at side as a referral from Dr Rios presents today w severe and chronic LBP x years secondary to DDD, spondylosis and facet arthropathy without myelopathy for evaluation. Pt states pain level is provoked at 7/10 in intensity, constant, localized in the lower lumbar spine, sore, achy in character without shooting pain. Pain is provoked by standing for a few minutes, standing upright for 3 min or more. Pain is alleviated by sitting, massage by his , heat, medications (Ibu, ASA), topical, repositioning and rest. PMH: OA, DM II, Hyperlipidemia, HTN, OA PSH: Heart Catheterization, R Carpal Tunnel Release (2019), R Trigger Finger Release (2019), Lumbar Laminectomy, BL Knee Arthroscopy, Colonoscopy, Warthin's Parotid Cystectomy SH: Former tobacco user, No ETOH abuse, No illicit drug use FH: Mo- Sarcoma?? All: See list Meds: See list REVIEW OF ORGAN SYSTEMS: CONSTITUTIONAL: No fevers or chills. No recent weight loss. NEUROLOGICAL: + numbness and tingling along the distal extremities. No seizure disorders or headaches. MUSCULOSKELETAL: + pain PSYCHIATRIC: Denies current depression or suicidal thoughts. Physical Examinations : Constitutional : Cooperative , not in acute distress . Neurologic : Cranial nerve II to XII intact. No focal neurological deficits. Psychiatric : alert & oriented x 3. Matching mood & appropriate affect. Judgment & insight intact. Musculoskeletal : Cervical Spine Motor strength in the deltoid and biceps: Normal right side. Normal Left side Motor strength biceps and the wrist extensors: Normal right side . Normal left side Motor strength in the triceps muscle: Normal right side. Normal left side Deep tendon reflexes: Normal at the biceps. Normal at Brachioradialis. Normal at triceps Vertebral body tenderness to deep palpation over Cervical facet loading test: positive bilaterally Spurling test: positive bilaterally Neck distraction test: positive bilaterally Radha sign: positive bilaterally Lumbar spine Motor strength lower extremities ,thigh and legs 5/5 Right side , 5/5 Left side Deep tendon reflexes : Normal Knee Jerk. Normal Ankle Jerk Vertebral body tenderness over L3 Fuentes Test positive Lumbar facet Loading Test: positive Right / positive Left at BL L4-L5 Range of motion of the lumbar spine Flexion 30 degrees, extension 10 degrees Straight Leg Raise test: Left/ Right positive at degree Noble test: positive right / positive left. Severe tenderness over the Sacroiliac joint on the Right / Left sides Gaenslen test: positive bilaterally Seated flexion test: positive bila terally. Sacral spine : Severe tenderness over the Sacroiliac joint: right side / left side Range of motion: Flexion of the lumbar spine <60 degrees Range of motion: Extension of the lumbar spine <20 degrees Gaenslen's Test positive Brayan's Test positive Noble test: positive right side / left side Thigh Thrust Test Sacral Thrust Test Imaging: MRI non contrast of the lumbar spine from 02/28/23 reviewed Assessment/ Plan : Lumbar DDD Recommendation of SCS Trial. Pt watching video. Will need behavioral eval for clearance. Risks, benefits of procedure discussed and patient verbalized understanding. Admits to aspirin or anti- coagulant use or medical history of diabetes. Protocol for discontinuation/ continuation of medications kymberly procedure discussed. Minimal anesthesia provided, if clinically indicated, consisting of Versed and Fentanyl. All questions answered. I have spent greater than 30 minutes on patient care today. Dr Castro was available by phone for the evaluation of this patient. The time was used to review the medical records including relevant urine studies and Prescription history (MAPs), review of the available imaging, evaluation and examination of the patient, coordination of care with the medical staff and if applicable referring physicians, as well as creation of the medical record PQRS Narrative: Smoking Status Former smoker Home Medications: Ambulatory Orders Acetaminophen [Tylenol] 650 mg PO QAM 04/16/19 Atorvastatin [Lipitor] 20 mg PO HS 04/16/19 Cholecalciferol (Vitamin D3) [Vitamin D3] 2,000 unit PO QAM 04/16/19 Cyanocobalamin [Vitamin B-12] 500 mcg PO QAM 04/16/19 Lisinopril-Hctz 20-12.5 mg [Zestoretic 20-12.5] 1 tab PO QAM 04/16/19 amLODIPine [Norvasc] 10 mg PO HS 04/16/19 lisinopriL 20 mg PO HS 04/16/19 metFORMIN HCL [Glucophage] 1,000 mg PO HS 04/16/19 Aspirin [Adult Low Dose Aspirin EC] 81 mg PO DAILY 07/07/19 HYDROcodone/APAP 5-325MG [[place] 5-325] 1 tab PO Q6HR PRN 7 Days #28 tab 07/10/19 Controlled Substance Measures - Controlled Substance Measures Is patient prescribed a controlled substance at discharge?: No
== END ==
LOC: PNWHC3 09:16
PROVIDERS: ATTEND Anesthesiology
DX: M51.36 Other intervertebral disc degeneration, lumbar region (principal); M19.90 Unspecified osteoarthritis, unspecified site; E11.9 Type 2 diabetes mellitus without complications; E78.5 Hyperlipidemia, unspecified; I10 Essential (primary) hypertension; Z79.899 Other long term (current) drug therapy; Z79.84 Long term (current) use of oral hypoglycemic drugs; Z87.891 Personal history of nicotine dependence; Z88.0 Allergy status to penicillin; Z88.1 Allergy status to other antibiotic agents
CPT/HCPCS: 99211

== ENCOUNTER → 2024-01-24 | Outpatient (CLI) | payer MEDICARE, OTHER ==
--- NOTE | 2024-01-24 11:56 | PE ---
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 Images are reviewed on the computer in the coronal, axial, and sagittal planes. Reconstructed rotating images are created on independent workstation and reviewed on the computer. A non-contrast CT is performed in conjunction with the PET scan. Glucose level 185 mg/dL CT DLP: 657 mGycm, Automated exposure control for dose reduction was used. COMPARISON: CT 12/31/2023., PET/CT None, FINDINGS: Mediastinal SUV mean is 2.1. Hepatic parenchyma SUV mean is 2.7. SKULL BASE AND NECK: * Left hypopharynx mucosal mass measuring up to 4.0 x 3.1 x 2.8 cm Max SUV 17.7. Bilateral neck lymph nodes compatible with metastatic disease. Examples: * Right neck 11 mm Max SUV 10.0 extending down the level 5B * Left neck lymph nodes, the largest measuring up to 24 mm in short axis max SUV 12.6. * Multiple level 3 and level 5 lymph nodes are seen extending along the left neck level 5B Paranasal sinus disease uptake measuring Max SUV in the right maxillary sinus 8.2 and in the left ant erior ethmoid air cells 9.1. CHEST, MEDIASTINUM, AND HILAR REGION: * No suspicious radiotracer activity. * AP window uptake max SUV 3.9 thought to be in the vascular structures. ABDOMEN AND PELVIS: No suspicious radiotracer activity. MUSCULOSKELETAL STRUCTURES: No suspicious radiotracer activity. OTHER CT: Atherosclerosis of the coronary arteries including the carotid bifurcations the intracrania l internal carotid arteries. Multilevel degeneration changes throughout the spine. Mild emphysema geoffrey nges. Left hip arthroplasty changes with hardware intact. Moderate amount of stool throughout the col on. Right simple appearing renal cyst. Left simple appearing renal cysts. 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
== END | disposition home or self-care (01) ==
LOC: RADXRMAIN 06:21
PROVIDERS: ATTEND Internal Medicine Critical Care Medicine
DX: C14.8 Malignant neoplasm of overlapping sites of lip, oral cavity and pharynx (principal); R22.1 Localized swelling, mass and lump, neck
CPT/HCPCS: 78815; A9552

== ENCOUNTER → 2024-02-01 | Outpatient (CLI) | payer MEDICARE, OTHER ==
--- NOTE | 2024-02-01 12:30 | FL ---
COMPARISON: NONE DATE OF EXAM: 02/01/2024 HISTORY: Dysphagia A number of thin and thick substances were ingested under the care of the department of speech pathol ogy. There is penetration and aspiration with thin barium, nectar and honey. Puree and solids foods demonstrate no significant evidence of penetration or aspiration. 1 minute 28 seconds of fluoroscopy provided. No images. DAP are not provided. IMPRESSION: 1. There is penetration and aspiration with thin barium, nectar and honey.
== END | disposition home or self-care (01) ==
LOC: RADFLMAIN 11:28
PROVIDERS: ATTEND Radiology Radiation Oncology
DX: C12 Malignant neoplasm of pyriform sinus (principal)
CPT/HCPCS: 74230

== ENCOUNTER 2024-02-02 18:30 | Emergency (ER) | payer MEDICARE, OTHER ==
--- NOTE | 2024-02-02 18:41 | ED ---
General Adult HPI - General Chief complaint: Neck Pain/Injury Stated complaint: coughing up blood Time Seen by Provider: 02/02/24 18:41 Source: patient, family, RN notes reviewed Mode of arrival: wheelchair Limitations: no limitations - History of Present Illness Initial comments: This is an 83-year-old male with a medical history of throat cancer who presents emergency department chief complaint of hemoptysis. Patient states that this afternoon he has experienced 2 episodes of hemoptysis. Denies shortness of breath, chest pain or pressure, palpitations, dizziness, lightheadedness. Patient endorses fatigue, states that he has received blood transfusions in the past due to being anemic of unknown origin. Of note, patient states that he is scheduled next week for port cath placement to undergo chemotherapy and radiation for throat cancer. Patient denies history of DVT or PE, FL, CVA. Is currently not on any blood thinners. - Related Data Home Medications Medication Instructions Recorded Confirmed Acetaminophen [Tylenol] 650 mg PO QAM 04/16/19 04/04/23 Atorvastatin [Lipitor] 20 mg PO 04/16/19 04/04/23 Cholecalciferol (Vitamin D3) 2,000 unit PO QAM 04/16/19 04/04/23 [Vitamin D3] Cyanocobalamin [Vitamin B-12] 500 mcg PO QAM 04/16/19 04/04/23 Lisinopril-Hctz 20-12.5 mg 1 tab PO QAM 04/16/19 04/04/23 [Zestoretic 20-12.5] amLODIPine [Norvasc] 10 mg PO 04/16/19 04/04/23 lisinopriL 20 mg PO 04/16/19 04/04/23 metFORMIN HCL [Glucophage] 1,000 mg PO 04/16/19 04/04/23 Aspirin [Adult Low Dose Aspirin EC] 81 mg PO DAILY 07/07/19 04/04/23 Previous Rx's Medication Instructions Recorded HYDROcodone/APAP 5-325MG [[place] 1 tab PO Q6HR PRN 7 Days #28 tab 07/10/19 5-325] Allergies Allergy/AdvReac Type Severity Reaction Status Date / Time Penicillins Allergy Rash/Hives Verified 02/02/24 18:37 erythromycin base AdvReac flu like Verified 02/02/24 18:37 symptoms Review of Systems ROS Statement: Those systems with pertinent positive or pertinent negative responses have been documented in the HPI. ROS Other: All systems not noted in ROS Statement are negative. Past Medical History Past Medical History: Cancer, Diabetes Mellitus, Hyperlipidemia, Hypertension, Osteoarthritis (OA) Additional Past Medical History / Comment(s): Throat cancer diagnosed (December 2023) History of Any Multi-Drug Resistant Organisms: None Reported Past Surgical History: Back Surgery, Heart Catheterization, Joint Replacement, Orthopedic Surgery Additional Past Surgical History / Comment(s): bilat knees arthoscopy, lumbar laminectomy, colonoscopy, warthins parotid cyst removal, lt hip replacement Past Anesthesia/Blood Transfusion Reactions: No Reported Reaction Additional Past Anesthesia/Blood Transfusion Reaction / Comment(s): agitation with laminectomy anesthesia Past Psychological History: No Psychological Hx Reported Smoking Status: Former smoker Past Alcohol Use History: None Reported Past Drug Use History: None Reported - Past Family History Mother Family Medical History: Cancer Additional Family Medical History / Comment(s): sarcoma ? General Exam Limitations: no limitations Course Vital Signs 02/02/24 02/02/24 02/02/24 18:32 20:35 22:16 Temperature 98.2 F Pulse Rate 89 78 78 Respiratory 20 19 18 Rate Blood Pressure 129/79 136/67 O2 Sat by Pulse 96 Oximetry Medical Decision Making - Medical Decision Making Was pt. sent in by a medical professional or institution ([facility] Roberts, PARENT PARTNER, urgent care, hospital, or long term...) When possible be specific @ -No Did you speak to anyone other than the patient for history (EMS, parent, family, police, friend...)? What history was obtained from this source @ -No Did you review nursing and triage notes (agree or disagree)? Why? @ -I reviewed and agree with nursing and triage notes Were old charts reviewed (outside hosp., previous admission, EMS record, old EKG, old radiological studies, urgent care reports/EKG's, long term records)? Report findings @ -Previous PET/CT scan results that were completed at the beginning of January were reviewed. Differential Diagnosis (chest pain, altered mental status, abdominal pain women, abdominal pain men, vaginal bleeding, weakness, fever, dyspnea, syncope, headache, dizziness, GI bleed, back pain, seizure, CVA, palpatations, mental health, musculoskeletal)? @ -Differential Weakness: Hypoglycemia, shock, sepsis, hyponatremia, anemia, infection, FL, ETOH, adverse medicine reaction, overdose, stroke, this is not meant to be an all-inclusive list. EKG interpreted by me (3pts min.). @ -Completed at 1900 reading sinus rhythm, ventricular rate 81, HI interval 170, QTc 388. No acute signs of ischemia. X-rays interpreted by me (1pt min.). @ -Chest x-ray has no acute cardiopulmonary process CT interpreted by me (1pt min.). 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 U/S interpreted by me (1pt. min.). @ -None done What testing was considered but not performed or refused? (CT, X-rays, U/S, labs)? Why? @ -None What meds were considered but not given or refused? Why? @ -None Did you discuss the management of the patient with other professionals (professionals i.e. , PA, PARENT PARTNER, lab, RT, psych nurse, addiction social worker, leather polisher, teacher, collection officer, case management manager)? Give summary @ -No Was smoking cessation discussed for >3mins.? @ -No Was critical care preformed (if so, how long)? @ -No Were there social determinants of health that impacted care today? How? (Homelessness, low income, unemployed, alcoholism, drug addiction, transportation, low edu. Level, literacy, decrease access to med. care, [facility], rehab)? @ -No Was there de-escalation of care discussed even if they declined (Discuss DNR or withdrawal of care, Hospice)? DNR status @ -No What co-morbidities impacted this encounter? (DM, HTN, Smoking, COPD, CAD, Can cer, CVA, ARF, Chemo, Hep., AIDS, mental health diagnosis, sleep apnea, morbid obesity)? @ -Cancer Was patient admitted / discharged? Hospital course, mention meds given and route, prescriptions, significant lab abnormalities, going to OR and other pertinent info. @ -83-year-old male with complaint of hemoptysis. On physical examination patient noted to have mass over the anterior neck that is freely mobile. There is no acute evidence of intraoral or nasal bleeding. Patient's laboratory results remarkable for anemia with a hemoglobin of 9.6 and hematocrit of 32.1. Coagulation profile within normal limits, lactate and troponin nonelevated. chemistry panel unremarkable for electrolyte abnormalities, kidney and liver function within normal limits. Nonelevated troponin. CT findings are unremarkable for signs of PE and/or change metastatic disease of the neck. Discussed these findings with the patient and recommend that he follows up next week as scheduled with his radiologist oncologist for further evaluation intervention. Discussed this case with Dr. Roy Undiagnosed new problem with uncertain prognosis? @ -No Drug Therapy requiring intensive monitoring for toxicity (Heparin, Nitro, Insulin, Cardizem)? @ -No Were any procedures done? @ -No Diagnosis/symptom? @ -Hemoptysis, metastatic disease of the larynx Acute, or Chronic, or Acute on Chronic? @ -Acute Uncomplicated (without systemic symptoms) or Complicated (systemic symptoms)? @ -uncomplicated Side effects of treatment? @ -No Exacerbation, Progression, or Severe Exacerbation? @ -No Poses a threat to life or bodily function? How? (Chest pain, [place], FL, pneumonia, PE, COPD, DKA, ARF, appy, cholecystitis, CVA, Diverticulitis, Homicidal, Suicidal, threat to staff... and all critical care pts) @ -No - Lab Data Result diagrams: 02/02/24 19:10 02/02/24 20:05 Lab Results 02/02/24 02/02/24 02/02/24 Range/Units 19:10 19:10 19:10 WBC 8.7 (3.8-10.6) k/uL RBC 4.01 L (4.30-5.90) m/uL Hgb 9.6 L (13.0-17.5) gm/dL Hct 32.1 L (39.0-53.0) % MCV 80.1 (80.0-100.0) fL MCH 23.8 L (25.0-35.0) pg MCHC 29.7 L (31.0-37.0) g/dL RDW 17.0 H (11.5-15.5) % Plt Count 482 H (150-450) k/uL MPV 8.5 Neutrophils % 75 % Lymphocytes % 11 % Monocytes % 10 % Eosinophils % 2 % Basophils % 0 % Neutrophils # 6.6 (1.3-7.7) k/uL Lymphocytes # 0.9 L (1.0-4.8) k/uL Monocytes # 0.8 (0-1.0) k/uL Eosinophils # 0.1 (0-0.7) k/uL Basophils # 0.0 (0-0.2) k/uL Hypochromasia Marked Anisocytosis Slight Microcytosis Slight PT 11.9 (10.0-12.5) sec INR 1.1 (<1.2) APTT 28.1 (22.0-30.0) sec Sodium (137-145) mmol/L Potassium (3.5-5.1) mmol/L Chloride (98-107) mmol/L Carbon Dioxide (22-30) mmol/L Anion Gap mmol/L BUN (9-20) mg/dL Creatinine (0.66-1.25) mg/dL Est GFR (CKD-EPI)AfAm (>60 ml/min/1.73 sqM) Est GFR (CKD-EPI)NonAf (>60 ml/min/1.73 sqM) Glucose (74-99) mg/dL Plasma Lactic Acid Raul 1.1 (0.7-2.0) mmol/L Calcium (8.4-10.2) mg/dL Magnesium (1.6-2.3) mg/dL Total Bilirubin (0.2-1.3) mg/dL AST (17-59) U/L ALT (4-49) U/L Alkaline Phosphatase (38-126) U/L Troponin I (0.000-0.034) ng/mL Total Protein (6.3-8.2) g/dL Albumin (3.5-5.0) g/dL 02/02/24 02/02/24 Range/Units 19:10 20:05 WBC (3.8-10.6) k/uL RBC (4.30-5.90) m/uL Hgb (13.0-17.5) gm/dL Hct (39.0-53.0) % MCV (80.0-100.0) fL MCH (25.0-35.0) pg MCHC (31.0-37.0) g/dL RDW (11.5-15.5) % Plt Count (150-450) k/uL MPV Neutrophils % % Lymphocytes % % Monocytes % % Eosinophils % % Basophils % % Neutrophils # (1.3-7.7) k/uL Lymphocytes # (1.0-4.8) k/uL Monocytes # (0-1.0) k/uL Eosinophils # (0-0.7) k/uL Basophils # (0-0.2) k/uL Hypochromasia Anisocytosis Microcytosis PT (10.0-12.5) sec INR (<1.2) APTT (22.0-30.0) sec Sodium 135 L (137-145) mmol/L Potassium 4.4 (3.5-5.1) mmol/L Chloride 102 (98-107) mmol/L Carbon Dioxide 30 (22-30) mmol/L Anion Gap 3 mmol/L BUN 20 (9-20) mg/dL Creatinine 0.58 L (0.66-1.25) mg/dL Est GFR (CKD-EPI)AfAm >90 (>60 ml/min/1.73 sqM) Est GFR (CKD-EPI)NonAf >90 (>60 ml/min/1.73 sqM) Glucose 159 H (74-99) mg/dL Plasma Lactic Acid Raul (0.7-2.0) mmol/L Calcium 10.2 (8.4-10.2) mg/dL Magnesium 2.1 (1.6-2.3) mg/dL Total Bilirubin 0.7 (0.2-1.3) mg/dL AST 45 (17-59) U/L ALT 32 (4-49) U/L Alkaline Phosphatase 116 (38-126) U/L Troponin I <0.012 (0.000-0.034) ng/mL Total Protein 7.1 (6.3-8.2) g/dL Albumin 3.1 L (3.5-5.0) g/dL Disposition Clinical Impression: Hemoptysis, Malignant neoplasm of pharynx Narrative: Please return to the Emergency Department if symptoms worsen or any other concerns. Follow-up with radiology oncology next week as scheduled. Disposition: HOME SELF-CARE Condition: Good Instructions (If sedation given, give patient instructions): Coughing Up Blood (Hemoptysis) (ED) Is patient prescribed a controlled substance at d/c from ED?: No Referrals: Yefri Castro DO [Primary Care Provider] - 1-2 days Time of Disposition: 22:05
[2024-02-02 18:52] VITALS: TEMP 98.2
[2024-02-02 19:30] LABS: Anisocytosis Slight; Basophils % (A) 0 %; Eosinophils # (A) 0.1 k/uL (0-0.7); Eosinophils % (A) 2 %; HCT 32.1 % (39.0-53.0); HGB 9.6 gm/dL (13.0-17.5); Hypochromasia Marked; Lymphocytes # (A) 0.9 k/uL (1.0-4.8); Lymphocytes % (A) 11 %; MCH 23.8 pg (25.0-35.0); MCHC 29.7 g/dL (31.0-37.0); MCV 80.1 fL (80.0-100.0); Mean Platelet Volume 8.5; Microcytosis Slight; Monocytes # (A) 0.8 k/uL (0-1.0); Monocytes % (A) 10 %; Neutrophils # (A) 6.6 k/uL (1.3-7.7); Neutrophils % (A) 75 %; Platelet Count 482 k/uL (150-450); RBC 4.01 m/uL (4.30-5.90); WBC 8.7 k/uL (3.8-10.6)
--- NOTE | 2024-02-02 19:44 | XR ---
EXAMINATION TYPE: XR chest 2V DATE OF EXAM: 02/02/2024 7:29 PM CLINICAL INDICATION:Male, 83 years old with history of Hemoptysis; [facility] COMPARISON: Pet/CT for 01/24/2024 TECHNIQUE: XR chest 2V Frontal and lateral views of the chest. FINDINGS: Lungs/Pleura: There is no evidence of pleural effusion, focal consolidation, or pneumothorax. Pulmonary vascularity: Unremarkable. Heart/mediastinum: Cardiomediastinal silhouette is unremarkable. Musculoskeletal: No acute osseous pathology. IMPRESSION: No acute cardiopulmonary disease/process.
[2024-02-02 20:21] LABS: INR 1.1 (<1.2); Partial Thromboplastin Time 28.1 sec (22.0-30.0); Prothrombin Time 11.9 sec (10.0-12.5)
[2024-02-02 21:08] LABS: ALT 32 U/L (4-49); African American GFR (CKD) >90 (>60 ml/min/1.73 sqM); Albumin 3.1 g/dL (3.5-5.0); Anion Gap 3 mmol/L; Blood Urea Nitrogen 20 mg/dL (9-20); Calcium 10.2 mg/dL (8.4-10.2); Carbon Dioxide 30 mmol/L (22-30); Chloride 102 mmol/L (98-107); Glucose 159 mg/dL (74-99); Non-African American GFR(CKD) >90 (>60 ml/min/1.73 sqM); Sodium 135 mmol/L (137-145); Total Bilirubin 0.7 mg/dL (0.2-1.3); Total Protein 7.1 g/dL (6.3-8.2)
[2024-02-02 21:09] LABS: AST 45 U/L (17-59); Alkaline Phosphatase 116 U/L (38-126); Magnesium 2.1 mg/dL (1.6-2.3); Potassium 4.4 mmol/L (3.5-5.1)
--- NOTE | 2024-02-02 21:49 | CT ---
EXAMINATION TYPE: CT chest angio for PE, CT soft tissue neck w con CT DLP: 353.7 (accession [id number]), 240.8 (accession [id number]) mGycm, Automated exposure control for dose reduction was used. DATE OF EXAM: 02/02/2024 9:30 PM COMPARISON: PET/CT 01/24/2024 CLINICAL INDICATION:Male, 83 years old with history of hemoptysis, r/o PE; Hemoptysis, hx of throat c a TECHNIQUE/CONTRAST: CTA scan of the thorax is performed with IV Contrast, patient injected with 100 ml mL of Isovue 370, MIP images are created and reviewed these are created on a separate workstation.. Axial imaging of the neck with surgical and coronal reformats. FINDINGS: Lungs/Pleura: No evidence of focal consolidation, pleural effusion or pneumothorax. Airway: Large airways are patent. Heart: Heart is within normal limits for size. Vasculature: No evidence of aortic aneurysm. Mild atherosclerosis throughout the arterial vasculature . Moderate to severe coronary artery atherosclerosis. No evidence for a filling defect within the pul monary arterial vasculature. Mediastinum: No gross evidence of adenopathy. Musculoskeletal: No acute osseous abnormalities Soft Tissues: Unremarkable. Lower neck: Bilateral lymphadenopathy compatible with known malignancy measuring up to 23 mm in short axis on the left and up to 11 mm on the right. Some of the lymph nodes have low attenuation centrall y suggesting necrosis.r laryngeal mass remains present measuring 28 x 23 mm not significantly changed from prior PET/CT. Upper Abdomen: No significant findings. 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 Findings aren't significantly changed from PET/CT 01/24/2024.
[2024-02-02 22:43] VITALS: BP 117/74; PULSE 77; RESP 18
== END 2024-02-02 22:34 | disposition home or self-care (01) ==
LOC: EC 18:30
DX: R04.2 Hemoptysis (principal); C32.9 Malignant neoplasm of larynx, unspecified; Z87.891 Personal history of nicotine dependence; Z88.0 Allergy status to penicillin; Z88.8 Allergy status to other drugs, medicaments and biological substances
CPT/HCPCS: 36415; 93005; 80053; 83605; 83735; 84484; 85025; 85610; 85730; 71046; 70491; 71275; 99285; Q9967

== ENCOUNTER 2024-02-20 22:18 | Inpatient (IN) | payer MEDICARE, OTHER ==
[2024-02-20 22:26] LABS: Glucose,Whole Blood 350 mg/dL (70-110)
[2024-02-20 23:05] LABS: INR 1.1 (<1.2); Partial Thromboplastin Time 29.1 sec (22.0-30.0); Prothrombin Time 11.5 sec (10.0-12.5)
[2024-02-20] MEDS: SODIUM CHLORIDE 0.9% 1,000 ML IV ONE (23:06)
[2024-02-20 23:07] LABS: Anisocytosis Slight; Basophils % (A) 0 %; Eosinophils # (A) 0.1 k/uL (0-0.7); Eosinophils % (A) 1 %; HCT 31.9 % (39.0-53.0); HGB 9.4 gm/dL (13.0-17.5); Hypochromasia Marked; Lymphocytes # (A) 1.1 k/uL (1.0-4.8); Lymphocytes % (A) 8 %; MCH 24.2 pg (25.0-35.0); MCHC 29.4 g/dL (31.0-37.0); MCV 82.4 fL (80.0-100.0); Mean Platelet Volume 9.1; Microcytosis Slight; Monocytes # (A) 0.9 k/uL (0-1.0); Monocytes % (A) 7 %; Neutrophils # (A) 10.8 k/uL (1.3-7.7); Neutrophils % (A) 83 %; Platelet Count 345 k/uL (150-450); RBC 3.87 m/uL (4.30-5.90); RDW 18.5 % (11.5-15.5); WBC 13.1 k/uL (3.8-10.6)
--- NOTE | 2024-02-20 23:16 | ED ---
Weakness HPI - General Chief complaint: Weakness Stated complaint: High Blood Glucose Time Seen by Provider: 02/20/24 22:27 Source: EMS Mode of arrival: EMS - History of Present Illness Initial comments: This patient is an 83-year-old man who is here to have evaluation for a cons tellation of symptoms that have come out over the past few days. The patient himself states that he feels well and would like to go home. His family relates that he has been having difficulty with controlling blood sugar. Patient also has had some fatigue and generalized weakness. They state that in addition of that he has had some hallucinations over the course the past day to 2. The patient has not noted fever or chills. He denies dyspnea though they did have a pulse oximetry reading in the mid 80s at his residence. Patient is not having chest pain. He has had occasional cough with some brownish to yellow sputum. Patient denies abdominal or back pain. No change in urination or bowel movements. The patient not able to take any oral intake and oral intake is through PEG tube that was placed last week. He also had tracheostomy. MD Complaint: generalized weakness Onset/Timin -: days(s) Severity scale (1-10): 0 Improves with: none Worsens with: none Context: recent surgery Associated Symptoms: confusion - Related Data Home Medications Medication Instructions Recorded Confirmed amLODIPine [Norvasc] 10 mg PEG/G-TUBE HS 04/16/19 02/21/24 Atorvastatin [Lipitor] 40 mg PEG/G-TUBE HS 02/21/24 02/21/24 Ferrous Sulfate [Iron (65 MG 325 mg PEG/G-TUBE DAILY 02/21/24 02/21/24 Elemental)] Metoprolol Succinate (ER) [Toprol 25 mg PEG/G-TUBE DAILY 02/21/24 02/21/24 XL] Previous Rx's Medication Instructions Recorded Acetaminophen Tab [Tylenol] 650 mg PO Q6HR PRN tab 02/29/24 Ciprofloxacin HCl [Cipro] 500 mg PO Q12HR #20 tab 02/29/24 Gabapentin [Neurontin] 200 mg PEG/G-TUBE BID #0 02/29/24 INSULIN ASPART (NovoLOG) [NovoLOG 3 unit SQ QID #1 each 02/29/24 (formulary)] Insulin Aspart [NovoLOG Flexpen] See Protocol SQ AC-TID #1 each 02/29/24 Insulin Glargine,Hum.rec.anlog 16 units SQ HS #0 02/29/24 [Lantus Solostar Pen] Sennosides-Docusate Sodium 2 each PO HS #60 tab 02/29/24 [Senokot-S] traZODone HCL [Desyrel] 25 mg PO HS #30 tab 02/29/24 Allergies Allergy/AdvReac Type Severity Reaction Status Date / Time Penicillins Allergy Rash/Hives Verified 02/21/24 07:15 erythromycin base AdvReac flu like Verified 02/21/24 07:15 symptoms Review of Systems ROS Statement: Those systems with pertinent positive or pertinent negative responses have been documented in the HPI. ROS Other: All systems not noted in ROS Statement are negative. Constitutional: Reports: weakness. Denies: fever, chills Respiratory: Reports: as per HPI, cough. Denies: dyspnea Cardiovascular: Denies: chest pain, palpitations, edema, syncope Gastrointestinal: Denies: abdominal pain, vomiting, diarrhea Genitourinary: Denies: dysuria, hematuria Skin: Denies: rash Neurological: Denies: headache Past Medical History Past Medical History: Cancer, Diabetes Mellitus, Hyperlipidemia, Hypertension, Osteoarthritis (OA) Additional Past Medical History / Comment(s): Throat cancer diagnosed (December 2023) History of Any Multi-Drug Resistant Organisms: None Reported Past Surgical History: Back Surgery, Heart Catheterization, Joint Replacement, Orthopedic Surgery Additional Past Surgical History / Comment(s): bilat knees arthoscopy, lumbar laminectomy, colonoscopy, warthins parotid cyst removal, lt hip replacement Past Anesthesia/Blood Transfusion Reactions: No Reported Reaction Additional Past Anesthesia/Blood Transfusion Reaction / Comment(s): agitation with laminectomy anesthesia Past Psychological History: No Psychological Hx Reported Smoking Status: Former smoker Past Alcohol Use History: None Reported Past Drug Use History: None Reported - Past Family History Mother Family Medical History: Cancer Additional Family Medical History / Comment(s): sarcoma ? General Exam General appearance: alert, in no apparent distress, cachectic Head exam: Present: atraumatic, normocephalic Eye exam: Present: normal appearance. Absent: scleral icterus, conjunctival injection Neck exam: Present: full ROM, other (Tracheostomy tube in place). Absent: tenderness Respiratory exam: Present: normal lung sounds bilaterally, rhonchi. Absent: respiratory distress, wheezes, rales, stridor, accessory muscle use Cardiovascular Exam: Present: regular rate, normal rhythm, normal heart sounds. Absent: systolic murmur, diastolic murmur, rubs, gallop GI/Abdominal exam: Present: soft. Absent: distended, tenderness, guarding, rebound, rigid, mass Extremities exam: Present: normal inspection, normal capillary refill. Absent: pedal edema, calf tenderness Back exam: Present: normal inspection. Absent: CVA tenderness (R), CVA tenderness (L) Neurological exam: Present: alert Skin exam: Present: warm, dry, intact, normal color. Absent: rash Course Vital Signs 02/20/24 02/20/24 02/21/24 22:20 23:00 00:20 Temperature 98.0 F Pulse Rate 80 98 Pulse Rate [ Pulse Oximetery ] Respiratory 18 18 Rate Blood Pressure 106/51 128/71 Blood Pressure [Right Arm] O2 Sat by Pulse 94 L 95 Oximetry Fraction of 28 Inspired Oxygen (FIO2) 02/21/24 02/21/24 02/21/24 01:15 03:00 06:13 Temperature Pulse Rate 78 74 75 Pulse Rate [ Pulse Oximetery ] Respiratory 18 18 18 Rate Blood Pressure 107/55 109/61 120/59 Blood Pressure [Right Arm] O2 Sat by Pulse 98 95 98 Oximetry Fraction of Inspired Oxygen (FIO2) 02/21/24 07:00 Temperature 97.5 F L Pulse Rate Pulse Rate [ 77 Pulse Oximetery ] Respiratory 16 Rate Blood Pressure Blood Pressure 135/67 [Right Arm] O2 Sat by Pulse 94 L Oximetry Fraction of Inspired Oxygen (FIO2) EKG Findings - EKG Results: EKG: interpreted by ERMD, sinus rhythm (Rate 79 bpm), normal axis, normal QRS, normal ST/T, no acute changes Medical Decision Making - Medical Decision Making Was pt. sent in by a medical professional or institution (, PA, SALESPERSON DRIVER, urgent care, hospital, or residential...) When possible be specific @ -[No] Did you speak to anyone other than the patient for history (EMS, parent, family, police, friend...)? What history was obtained from this source @ -[Yes family did give history Did you review nursing and triage notes (agree or disagree)? Why? @ -[I reviewed and agree with nursing and triage notes] Were old charts reviewed (outside hosp., previous admission, EMS record, old EKG, old radiological studies, urgent care reports/EKG's, residential records)? Report findings @ -[No old charts were reviewed] Differential Diagnosis (chest pain, altered mental status, abdominal pain women, abdominal pain men, vaginal bleeding, weakness, fever, dyspnea, syncope, he adache, dizziness, GI bleed, back pain, seizure, CVA, palpatations, mental health, musculoskeletal)? @ -[Differential Altered Mental Status: Hypoglycemia, DKA, hypercapnia, ETOH, overdose, CO poisoning, trauma, myxedema coma, HTN encephalopathy, infection, encephalitis, psychosis, intercranial hem orrhage, hepatic encephalopathy, meningitis, CVA, this is not meant to be an all-inclusive list EKG interpreted by me (3pts min.). @ -[I interpreted as above] X-rays interpreted by me (1pt min.). @ -[The patient had chest x-ray that I interpreted as negative for acute infiltrate, pneumothorax, congestive heart failure CT interpreted by me (1pt min.). @ -[None done] U/S interpreted by me (1pt. min.). @ -[None done] What testing was considered but not performed or refused? (CT, X-rays, U/S, l abs)? Why? @ -[None] What meds were considered but not given or refused? Why? @ -[None] Did you discuss the management of the patient with other professionals (professionals i.e. , PA, SALESPERSON DRIVER, lab, RT, psych nurse, public health social worker, ordnance artificer helper, teacher, project officer, assistant case manager)? Give summary @ -[Case discussed with admitting physician and treatment recommendations incorporated, including oncology consultation Was smoking cessation discussed for >3mins.? @ -[No] Was critical care preformed (if so, how long)? @ -[No] Were there social determinants of health that impacted care today? How? (Home lessness, low income, unemployed, alcoholism, drug addiction, transportation, low edu. Level, literacy, decrease access to med. care, assisted, rehab)? @ -[No] Was there de-escalation of care discussed even if they declined (Discuss DNR or withdrawal of care, Hospice)? DNR status @ -[No] What co-morbidities impacted this encounter? (DM, HTN, Smoking, COPD, CAD, Cancer, CVA, ARF, Chemo, Hep., AIDS, mental health diagnosis, sleep apnea, morbid obesity)? @ -[Hypertension, diabetes, carcinoma of neck. Was patient admitted / discharged? Hospital course, mention meds given and route, prescriptions, significant lab abnormalities, going to OR and other pertinent info. @ -[Patient will be admitted for further evaluation and treatment. Started on IV fluids and insulin. Undiagnosed new problem with uncertain prognosis? @ -[No] Drug Therapy requiring intensive monitoring for toxicity (Heparin, Nitro, Insulin, Cardizem)? @ -[No] Were any procedures done? @ -[No] Diagnosis/symptom? @ -[Acute hyperglycemia in diabetic patient Dehydration Acute delirium Acute, or Chronic, or Acute on Chronic? @ -[Acute Uncomplicated (without systemic symptoms) or Complicated (systemic symptoms)? @ -[Complicated by delirium Side effects of treatment? @ -[No] Exacerbation, Progression, or Severe Exacerbation? @ -[No] Poses a threat to life or bodily function? How? (Chest pain, USA, VT, pneumonia, PE, COPD, DKA, ARF, appy, cholecystitis, CVA, Diverticulitis, Homicidal, Suicidal, threat to staff... and all critical care pts) @ -[Yes this condition can worsen to hyperosmolar syndrome/DKA - Lab Data Result diagrams: 02/27/24 07:14 02/27/24 07:14 Lab Results 02/20/24 02/20/24 02/20/24 Range/Units 22:23 22:50 22:50 WBC 13.1 H (3.8-10.6) k/uL RBC 3.87 L (4.30-5.90) m/uL Hgb 9.4 L (13.0-17.5) gm/dL Hct 31.9 L (39.0-53.0) % MCV 82.4 (80.0-100.0) fL MCH 24.2 L (25.0-35.0) pg MCHC 29.4 L (31.0-37.0) g/dL RDW 18.5 H (11.5-15.5) % Plt Count 345 (150-450) k/uL MPV 9.1 Neutrophils % 83 % Lymphocytes % 8 % Monocytes % 7 % Eosinophils % 1 % Basophils % 0 % Neutrophils # 10.8 H (1.3-7.7) k/uL Lymphocytes # 1.1 (1.0-4.8) k/uL Monocytes # 0.9 (0-1.0) k/uL Eosinophils # 0.1 (0-0.7) k/uL Basophils # 0.0 (0-0.2) k/uL Hypochromasia Marked Anisocytosis Slight Microcytosis Slight PT 11.5 (10.0-12.5) sec INR 1.1 (<1.2) APTT 29.1 (22.0-30.0) sec Sodium (137-145) mmol/L Potassium (3.5-5.1) mmol/L Chloride (98-107) mmol/L Carbon Dioxide (22-30) mmol/L Anion Gap mmol/L BUN (9-20) mg/dL Creatinine (0.66-1.25) mg/dL Est GFR (CKD-EPI)AfAm (>60 ml/min/1.73 sqM) Est GFR (CKD-EPI)NonAf (>60 ml/min/1.73 sqM) Glucose (74-99) mg/dL POC Glucose (mg/dL) 350 H (70-110) mg/dL POC Glu Furnace Cleaner ID Mallory, Jaki Plasma Lactic Acid Raul (0.7-2.0) mmol/L Calcium (8.4-10.2) mg/dL Phosphorus (2.5-4.5) mg/dL Total Bilirubin (0.2-1.3) mg/dL AST (17-59) U/L ALT (4-49) U/L Alkaline Phosphatase (38-126) U/L Troponin I (0.000-0.034) ng/mL Total Protein (6.3-8.2) g/dL Albumin (3.5-5.0) g/dL Urine Color Urine Appearance (Clear) Urine pH (5.0-8.0) Ur Specific Jameson (1.001-1.035) Urine Protein (Negative) Urine Glucose (UA) (Negative) Urine Ketones (Negative) Urine Blood (Negative) Urine Nitrite (Negative) Urine Bilirubin (Negative) Urine Urobilinogen (<2.0) mg/dL Ur Leukocyte Esterase (Negative) 02/20/24 02/20/24 02/20/24 Range/Units 22:50 22:50 22:50 WBC (3.8-10.6) k/uL RBC (4.30-5.90) m/uL Hgb (13.0-17.5) gm/dL Hct (39.0-53.0) % MCV (80.0-100.0) fL MCH (25.0-35.0) pg MCHC (31.0-37.0) g/dL RDW (11.5-15.5) % Plt Count (150-450) k/uL MPV Neutrophils % % Lymphocytes % % Monocytes % % Eosinophils % % Basophils % % Neutrophils # (1.3-7.7) k/uL Lymphocytes # (1.0-4.8) k/uL Monocytes # (0-1.0) k/uL Eosinophils # (0-0.7) k/uL Basophils # (0-0.2) k/uL Hypochromasia Anisocytosis Microcytosis PT (10.0-12.5) sec INR (<1.2) APTT (22.0-30.0) sec Sodium 147 H (137-145) mmol/L Potassium 4.2 (3.5-5.1) mmol/L Chloride 109 H (98-107) mmol/L Carbon Dioxide 29 (22-30) mmol/L Anion Gap 9 mmol/L BUN 69 H (9-20) mg/dL Creatinine 0.90 (0.66-1.25) mg/dL Est GFR (CKD-EPI)AfAm >90 (>60 ml/min/1.73 sqM) Est GFR (CKD-EPI)NonAf 79 (>60 ml/min/1.73 sqM) Glucose 361 H (74-99) mg/dL POC Glucose (mg/dL) (70-110) mg/dL POC Glu Furnace Cleaner ID Plasma Lactic Acid Raul 1.3 (0.7-2.0) mmol/L Calcium 11.0 H (8.4-10.2) mg/dL Phosphorus 3.2 (2.5-4.5) mg/dL Total Bilirubin 0.4 (0.2-1.3) mg/dL AST 44 (17-59) U/L ALT 46 (4-49) U/L Alkaline Phosphatase 133 H (38-126) U/L Troponin I <0.012 (0.000-0.034) ng/mL Total Protein 6.6 (6.3-8.2) g/dL Albumin 2.8 L (3.5-5.0) g/dL Urine Color Urine Appearance (Clear) Urine pH (5.0-8.0) Ur Specific Jameson (1.001-1.035) Urine Protein (Negative) Urine Glucose (UA) (Negative) Urine Ketones (Negative) Urine Blood (Negative) Urine Nitrite (Negative) Urine Bilirubin (Negative) Urine Urobilinogen (<2.0) mg/dL Ur Leukocyte Esterase (Negative) 02/20/24 02/21/24 02/21/24 Range/Units 23:04 00:37 01:22 WBC (3.8-10.6) k/uL RBC (4.30-5.90) m/uL Hgb (13.0-17.5) gm/dL Hct (39.0-53.0) % MCV (80.0-100.0) fL MCH (25.0-35.0) pg MCHC (31.0-37.0) g/dL RDW (11.5-15.5) % Plt Count (150-450) k/uL MPV Neutrophils % % Lymphocytes % % Monocytes % % Eosinophils % % Basophils % % Neutrophils # (1.3-7.7) k/uL Lymphocytes # (1.0-4.8) k/uL Monocytes # (0-1.0) k/uL Eosinophils # (0-0.7) k/uL Basophils # (0-0.2) k/uL Hypochromasia Anisocytosis Microcytosis PT (10.0-12.5) sec INR (<1.2) APTT (22.0-30.0) sec Sodium (137-145) mmol/L Potassium (3.5-5.1) mmol/L Chloride (98-107) mmol/L Carbon Dioxide (22-30) mmol/L Anion Gap mmol/L BUN (9-20) mg/dL Creatinine (0.66-1.25) mg/dL Est GFR (CKD-EPI)AfAm (>60 ml/min/1.73 sqM) Est GFR (CKD-EPI)NonAf (>60 ml/min/1.73 sqM) Glucose (74-99) mg/dL POC Glucose (mg/dL) 285 H 264 H (70-110) mg/dL POC Glu Furnace Cleaner ID Mallory, Jaki Mallory, Jaki Plasma Lactic Acid Raul (0.7-2.0) mmol/L Calcium (8.4-10.2) mg/dL Phosphorus (2.5-4.5) mg/dL Total Bilirubin (0.2-1.3) mg/dL AST (17-59) U/L ALT (4-49) U/L Alkaline Phosphatase (38-126) U/L Troponin I (0.000-0.034) ng/mL Total Protein (6.3-8.2) g/dL Albumin (3.5-5.0) g/dL Urine Color Colorless Urine Appearance Clear (Clear) Urine pH 5.0 (5.0-8.0) Ur Specific Jameson 1.025 (1.001-1.035) Urine Protein Negative (Negative) Urine Glucose (UA) 4+ H (Negative) Urine Ketones Negative (Negative) Urine Blood Negative (Negative) Urine Nitrite Negative (Negative) Urine Bilirubin Negative (Negative) Urine Urobilinogen <2.0 (<2.0) mg/dL Ur Leukocyte Esterase Negative (Negative) 02/21/24 02/21/24 02/21/24 Range/Units 02:09 07:45 11:25 WBC (3.8-10.6) k/uL RBC (4.30-5.90) m/uL Hgb (13.0-17.5) gm/dL Hct (39.0-53.0) % MCV (80.0-100.0) fL MCH (25.0-35.0) pg MCHC (31.0-37.0) g/dL RDW (11.5-15.5) % Plt Count (150-450) k/uL MPV Neutrophils % % Lymphocytes % % Monocytes % % Eosinophils % % Basophils % % Neutrophils # (1.3-7.7) k/uL Lymphocytes # (1.0-4.8) k/uL Monocytes # (0-1.0) k/uL Eosinophils # (0-0.7) k/uL Basophils # (0-0.2) k/uL Hypochromasia Anisocytosis Microcytosis PT (10.0-12.5) sec INR (<1.2) APTT (22.0-30.0) sec Sodium 155 H (137-145) mmol/L Potassium 3.9 (3.5-5.1) mmol/L Chloride 117 H (98-107) mmol/L Carbon Dioxide 34 H (22-30) mmol/L Anion Gap 4 mmol/L BUN 48 H (9-20) mg/dL Creatinine 0.62 L (0.66-1.25) mg/dL Est GFR (CKD-EPI)AfAm >90 (>60 ml/min/1.73 sqM) Est GFR (CKD-EPI)NonAf >90 (>60 ml/min/1.73 sqM) Glucose 148 H (74-99) mg/dL POC Glucose (mg/dL) 225 H 119 H (70-110) mg/dL POC Glu Furnace Cleaner Davy Siddiqui Geraldine Plasma Lactic Acid Raul (0.7-2.0) mmol/L Calcium 10.9 H (8.4-10.2) mg/dL Phosphorus (2.5-4.5) mg/dL Total Bilirubin (0.2-1.3) mg/dL AST (17-59) U/L ALT (4-49) U/L Alkaline Phosphatase (38-126) U/L Troponin I (0.000-0.034) ng/mL Total Protein (6.3-8.2) g/dL Albumin (3.5-5.0) g/dL Urine Color Urine Appearance (Clear) Urine pH (5.0-8.0) Ur Specific Jameson (1.001-1.035) Urine Protein (Negative) Urine Glucose (UA) (Negative) Urine Ketones (Negative) Urine Blood (Negative) Urine Nitrite (Negative) Urine Bilirubin (Negative) Urine Urobilinogen (<2.0) mg/dL Ur Leukocyte Esterase (Negative) 02/21/24 02/21/24 Range/Units 12:15 17:25 WBC (3.8-10.6) k/uL RBC (4.30-5.90) m/uL Hgb (13.0-17.5) gm/dL Hct (39.0-53.0) % MCV (80.0-100.0) fL MCH (25.0-35.0) pg MCHC (31.0-37.0) g/dL RDW (11.5-15.5) % Plt Count (150-450) k/uL MPV Neutrophils % % Lymphocytes % % Monocytes % % Eosinophils % % Basophils % % Neutrophils # (1.3-7.7) k/uL Lymphocytes # (1.0-4.8) k/uL Monocytes # (0-1.0) k/uL Eosinophils # (0-0.7) k/uL Basophils # (0-0.2) k/uL Hypochromasia Anisocytosis Microcytosis PT (10.0-12.5) sec INR (<1.2) APTT (22.0-30.0) sec Sodium (137-145) mmol/L Potassium (3.5-5.1) mmol/L Chloride (98-107) mmol/L Carbon Dioxide (22-30) mmol/L Anion Gap mmol/L BUN (9-20) mg/dL Creatinine (0.66-1.25) mg/dL Est GFR (CKD-EPI)AfAm (>60 ml/min/1.73 sqM) Est GFR (CKD-EPI)NonAf (>60 ml/min/1.73 sqM) Glucose (74-99) mg/dL POC Glucose (mg/dL) 164 H 202 H (70-110) mg/dL POC Glu Furnace Cleaner ID Rhody, Adriana Rhody, Adriana Plasma Lactic Acid Raul (0.7-2.0) mmol/L Calcium (8.4-10.2) mg/dL Phosphorus (2.5-4.5) mg/dL Total Bilirubin (0.2-1.3) mg/dL AST (17-59) U/L ALT (4-49) U/L Alkaline Phosphatase (38-126) U/L Troponin I (0.000-0.034) ng/mL Total Protein (6.3-8.2) g/dL Albumin (3.5-5.0) g/dL Urine Color Urine Appearance (Clear) Urine pH (5.0-8.0) Ur Specific Jameson (1.001-1.035) Urine Protein (Negative) Urine Glucose (UA) (Negative) Urine Ketones (Negative) Urine Blood (Negative) Urine Nitrite (Negative) Urine Bilirubin (Negative) Urine Urobilinogen (<2.0) mg/dL Ur Leukocyte Esterase (Negative) Disposition Clinical Impression: Hyperglycemia, Dehydration, Acute delirium Disposition: ADMITTED IP TO THIS HOSP
[2024-02-20 23:38] LABS: Appearance,Urine Clear (Clear); Bilirubin,Urine Negative (Negative); Blood,Urine Negative (Negative); Color,Urine Colorless; Glucose,Urine (UA) 4+ (Negative); Ketones,Urine Negative (Negative); Leukocyte Esterase,Urine Negative (Negative); Nitrite,Urine Negative (Negative); Protein,Urine Negative (Negative); Specific Gravity,Urine 1.025 (1.001-1.035); Urobilinogen,Urine <2.0 mg/dL (<2.0)
[2024-02-20 23:46] LABS: ALT 46 U/L (4-49); AST 44 U/L (17-59); African American GFR (CKD) >90 (>60 ml/min/1.73 sqM); Albumin 2.8 g/dL (3.5-5.0); Alkaline Phosphatase 133 U/L (38-126); Anion Gap 9 mmol/L; Blood Urea Nitrogen 69 mg/dL (9-20); Carbon Dioxide 29 mmol/L (22-30); Chloride 109 mmol/L (98-107); Glucose 361 mg/dL (74-99); Non-African American GFR(CKD) 79 (>60 ml/min/1.73 sqM); Phosphorus 3.2 mg/dL (2.5-4.5); Potassium 4.2 mmol/L (3.5-5.1); Sodium 147 mmol/L (137-145); Total Bilirubin 0.4 mg/dL (0.2-1.3); Total Protein 6.6 g/dL (6.3-8.2)
--- NOTE | 2024-02-20 23:52 | XR ---
EXAM: XR Chest, 2 Views CLINICAL HISTORY: ITS.REASON XR Reason: Weakness TECHNIQUE: Frontal and lateral views of the chest. COMPARISON: No relevant prior studies available. FINDINGS: Lungs: Unremarkable. No consolidation. Pleural space: Unremarkable. No pneumothorax. Heart: Unremarkable. No cardiomegaly. Mediastinum: Unremarkable. Normal mediastinal contour. Bones/joints: Unremarkable. No acute fracture. Tubes, lines and devices: Midline tracheostomy tube. IMPRESSION: No consolidation.
[2024-02-21] MEDS: SODIUM CHLORIDE 0.9% 1,000 ML IV ONE (00:28)
[2024-02-21] MEDS: INSULIN REGULAR 100 UNIT/ML VIAL (IM/SQ) SQ ONE (00:28)
[2024-02-21 00:38] LABS: Glucose,Whole Blood 285 mg/dL (70-110)
[2024-02-21] MEDS ORDERED: NALOXONE 0.4 MG/ML 1 ML VIAL IV PRN (01:20)
[2024-02-21] MEDS ORDERED: HYDROcodone/APAP 5-325MG 1 EACH TAB PEG/G-TUBE PRN (01:23)
[2024-02-21 01:24] LABS: Glucose,Whole Blood 264 mg/dL (70-110)
[2024-02-21] MEDS ORDERED: DEXTROSE 50% SYRINGE 50 ML IVP PRN ×2 (01:25)
[2024-02-21 02:10] LABS: Glucose,Whole Blood 225 mg/dL (70-110)
[2024-02-21] MEDS: SODIUM CHLORIDE 0.9% 1,000 ML IV SCH (02:23)
[2024-02-21 07:46] LABS: Glucose,Whole Blood 119 mg/dL (70-110)
[2024-02-21] MEDS: HYDROcodone/APAP 10-325MG 1 EACH TAB PEG/G-TUBE PRN (10:03)
[2024-02-21] MEDS: ASPIRIN 81 MG PEG/G-TUBE SCH (10:35)
[2024-02-21] MEDS: GABAPENTIN 100 MG CAP PEG/G-TUBE SCH (11:56)
[2024-02-21] MEDS: METOPROLOL SUCCINATE (ER) 25 MG TAB.ER.24H PO SCH (11:56)
[2024-02-21 12:03] LABS: African American GFR (CKD) >90 (>60 ml/min/1.73 sqM); Anion Gap 4 mmol/L; Blood Urea Nitrogen 48 mg/dL (9-20); Calcium 10.9 mg/dL (8.4-10.2); Carbon Dioxide 34 mmol/L (22-30); Chloride 117 mmol/L (98-107); Glucose 148 mg/dL (74-99); Non-African American GFR(CKD) >90 (>60 ml/min/1.73 sqM); Potassium 3.9 mmol/L (3.5-5.1); Sodium 155 mmol/L (137-145)
[2024-02-21 12:16] LABS: Glucose,Whole Blood 164 mg/dL (70-110)
[2024-02-21] MEDS: INSULIN ASPART (NovoLOG) 100 UNIT/ML VIAL SQ SCH ×2 (13:29→21:13)
[2024-02-21] MEDS: INSULIN DETEMIR (LEVEMIR) 100 UNIT/ML SYR SQ SCH ×2 (13:29→21:12)
[2024-02-21 17:26] LABS: Glucose,Whole Blood 202 mg/dL (70-110)
[2024-02-21] MEDS: SODIUM CHLORIDE 0.45% 1,000 ML IV SCH (18:26)
--- NOTE | 2024-02-21 18:33 | P.HPIM ---
History of Present Illness H&P Date: 02/21/24 Chief Complaint: Increasing confusion This is a pleasant 83-year-old patient, follows with Dr. Castro. 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 At [facility]. Patient been followed by Dr. Harlan Burns oncologist and radiation oncologist Dr. Calvin Mohan. Patient lives with his . Does use a walker. About a week ago at [facility] patient had a PEG tube placed and tracheostomy tube placed. Patient's sugars have been uncontrolled for 6 some time. Patient now brought in for increasing confusion. And Accu-Cheks. Uncontrolled. At the baseline normally has a bowel movement once or twice a week. Does have intermittent cough. Not able to clear up his sputum well. I was informed that the PET scan done outpatient only showed lymph nodes in the neck. Lighting up Patient is accompanied by his , daughter and son in the room. Patient himself is able to answer simple questions. Review of systems: GEN.: Tired EYES: None HEENT: Decreased hearing NECK: None RESPIRATORY: None CARDIOVASCULAR: None GASTROINTESTINAL: As above e GENITOURINARY: None MUSCULOSKELETAL: None LYMPHATICS: None HEMATOLOGICAL: None PSYCHIATRY: Forgetful NEUROLOGICAL: Uses a walker e Social history: Patient smoked for about 35 years. Does use a walker. Lives with his . Retired. Physical examination: VITAL SIGNS: 97.5, 77, 16, 135/67, 94% room air GENERAL: BMI 23.9, sitting up in chair awake a bit tired. EYES: Pupils equal. Conjunctiva apurva l. HEENT: External appearance of nose and ears normal, oral cavity grossly normal. Tracheostomy. NECK: JVD not raised; masses not palpable. HEART: First and second heart sounds are normal; no edema. LUNGS: Respiratory rate normal; decreased breath sounds some crackles. ABDOMEN: Soft, nontender, liver spleen not palpable, no masses palpable. Feeding tube PSYCH: Patient is able to answer simple questions l. MUSCULOSKELETAL:No Clubbing/cyanosis;muscles-grossly intact. OA NEUROLOGICAL: Cranial nerves grossly intact; no facial asymmetry, power and sensation grossly intact. LYMPHATICS: Lymph nodes palpable in the neck. Not in the axilla. INVESTIGATIONS, reviewed in the clinical context: January 21: Sodium 155 potassium 3.9 chloride 117 BUN 48 creatinine 0.62 calcium 10.9 January 21, 2024: White count 13.1 hemoglobin 9.4 platelets 345 sodium 147 pota ssium 4.2 BUN 16 creatinine 0.9 blood glucose 361 troponin I less than 0.012 EKG tracing personally reviewed by me-normal sinus rhythm. Chest x-ray film personally reviewed by me-borderline cardiomegaly Previous studies: PET scan [January 24, 2024] left hypopharynx mass with metastatic disease to bila teral neck extending down to the level 5B bilaterally Assessment and plan: -Acute delirium/metabolic encephalopathy from hyperglycemia and other electrolyte abnormalities. Including hypernatremia from free water deficit Collect underlying electrolyte abnormalities -Diabetes mellitus type 2, uncontrolled with hyperglycemia Apparently patient was not getting a diabetic compliant feeding. Dietitian has been consulted. Glucerna will be given. Levemir 16 units nightly. NovoLog 4 units with bolus feeding 4 times a day. With sliding scale coverage. -Hyper natremia, severe. From free water deficit likely from hyperglycemia and decreased oral intake Change IV fluids to half saline. Free water to be given 125 cc before after each bolus feeding. -PEG tube feeding Glucerna-bolus feeding. Dietitian consulted. 4 times a day. Free water 150 cc before and after each feeding Patient had aspiration on modified barium swallow -Tracheostomy with care -Essential hypertension Resume Toprol-XL. 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 Being followed by Dr. Harlan Burns from oncology and Dr. Calvin Mohan from radiation oncology -DNR Advance care planning [February 21, 2024] This was discussed with the patient, his , daughter, son-in-law at the bedside. Multiple questions were answered. Patient is to be treated otherwise but patient will be a DNR. Time spent about 25 minutes Given the complexity and severity of patient's condition expect the patient to be in the hospital at least for 2 overnights Past Medical History Past Medical History: Cancer, Diabetes Mellitus, Hyperlipidemia, Hypertension, Osteoarthritis (OA) Additional Past Medical History / Comment(s): Throat cancer diagnosed (December 2023) History of Any Multi-Drug Resistant Organisms: None Reported Past Surgical History: Back Surgery, Heart Catheterization, Joint Replacement, Orthopedic Surgery Additional Past Surgical History / Comment(s): bilat knees arthoscopy, lumbar laminectomy, colonoscopy, warthins parotid cyst removal, lt hip replacement Past Anesthesia/Blood Transfusion Reactions: No Reported Reaction Additional Past Anesthesia/Blood Transfusion Reaction / Comment(s): agitation with laminectomy anesthesia Past Psychological History: No Psychological Hx Reported Smoking Status: Former smoker Past Alcohol Use History: None Reported Past Drug Use History: None Reported - Past Family History Mother Family Medical History: Cancer Additional Family Medical History / Comment(s): sarcoma ? Medications and Allergies Home Medications Medication Instructions Recorded Confirmed Type amLODIPine [Norvasc] 10 mg PEG/G-TUBE HS 04/16/19 02/21/24 History Atorvastatin [Lipitor] 40 mg PEG/G-TUBE HS 02/21/24 02/21/24 History Ferrous Sulfate [Feosol] 325 mg PEG/G-TUBE DAILY 02/21/24 02/21/24 History Gabapentin [Neurontin] 200 mg PEG/G-TUBE TID 02/21/24 02/21/24 History HYDROcodone/APAP 10-325MG [[place] 1 tab PEG/G-TUBE Q6HR PRN 02/21/24 02/21/24 History 10-325] Insulin Aspart [NovoLOG Flexpen] See Protocol SQ AC-TID 02/21/24 02/21/24 History Insulin Glargine,Hum.rec.anlog 20 units SQ HS 02/21/24 02/21/24 History [Lantus Solostar Pen] Lisinopril-Hctz 20-25 mg 1 tab PEG/G-TUBE DAILY 02/21/24 02/21/24 History [Zestoretic 20-25] Metoprolol Succinate (ER) [Toprol 25 mg PEG/G-TUBE DAILY 02/21/24 02/21/24 History Xl] oxyCODONE HCL [Oxycodone HCl] 10 mg PEG/G-TUBE Q6H PRN 02/21/24 02/21/24 History Allergies Allergy/AdvReac Type Severity Reaction Status Date / Time Penicillins Allergy Rash/Hives Verified 02/21/24 07:15 erythromycin base AdvReac flu like Verified 02/21/24 07:15 symptoms Physical Exam Vitals: Vital Signs Temp Pulse Pulse Resp BP BP Pulse Ox 05/02/24 07:00 97.5 F L 77 16 135/67 94 L 02/21/24 06:13 75 18 120/59 98 02/21/24 03:00 74 18 109/61 95 02/21/24 01:15 78 18 107/55 98 02/21/24 00:20 02/20/24 23:00 98 18 128/71 95 02/20/24 22:20 98.0 F 80 18 106/51 94 L FiO2 02/21/24 07:00 02/21/24 06:13 02/21/24 03:00 02/21/24 01:15 02/21/24 00:20 28 02/20/24 23:00 02/20/24 22:20 Intake and Output 02/20/24 02/21/24 02/21/24 22:59 06:59 14:59 Other: Weight 73.482 kg Results CBC & Chem 7: 02/20/24 22:50 02/21/24 11:25 Labs: Abnormal Lab Results - Last 24 Hours (Table) 02/20/24 02/20/24 02/20/24 Range/Units 22:23 22:50 22:50 WBC 13.1 H (3.8-10.6) k/uL RBC 3.87 L (4.30-5.90) m/uL Hgb 9.4 L (13.0-17.5) gm/dL Hct 31.9 L (39.0-53.0) % MCH 24.2 L (25.0-35.0) pg MCHC 29.4 L (31.0-37.0) g/dL RDW 18.5 H (11.5-15.5) % Neutrophils # 10.8 H (1.3-7.7) k/uL Sodium 147 H (137-145) mmol/L Chloride 109 H (98-107) mmol/L BUN 69 H (9-20) mg/dL Glucose 361 H (74-99) mg/dL POC Glucose (mg/dL) 350 H (70-110) mg/dL Calcium 11.0 H (8.4-10.2) mg/dL Alkaline Phosphatase 133 H (38-126) U/L Albumin 2.8 L (3.5-5.0) g/dL Urine Glucose (UA) (Negative) 02/20/24 02/21/24 02/21/24 Range/Units 23:04 00:37 01:22 WBC (3.8-10.6) k/uL RBC (4.30-5.90) m/uL Hgb (13.0-17.5) gm/dL Hct (39.0-53.0) % MCH (25.0-35.0) pg MCHC (31.0-37.0) g/dL RDW (11.5-15.5) % Neutrophils # (1.3-7.7) k/uL Sodium (137-145) mmol/L Chloride (98-107) mmol/L BUN (9-20) mg/dL Glucose (74-99) mg/dL POC Glucose (mg/dL) 285 H 264 H (70-110) mg/dL Calcium (8.4-10.2) mg/dL Alkaline Phosphatase (38-126) U/L Albumin (3.5-5.0) g/dL Urine Glucose (UA) 4+ H (Negative) 02/21/24 02/21/24 Range/Units 02:09 07:45 WBC (3.8-10.6) k/uL RBC (4.30-5.90) m/uL Hgb (13.0-17.5) gm/dL Hct (39.0-53.0) % MCH (25.0-35.0) pg MCHC (31.0-37.0) g/dL RDW (11.5-15.5) % Neutrophils # (1.3-7.7) k/uL Sodium (137-145) mmol/L Chloride (98-107) mmol/L BUN (9-20) mg/dL Glucose (74-99) mg/dL POC Glucose (mg/dL) 225 H 119 H (70-110) mg/dL Calcium (8.4-10.2) mg/dL Alkaline Phosphatase (38-126) U/L Albumin (3.5-5.0) g/dL Urine Glucose (UA) (Negative)
[2024-02-21 20:26] LABS: Glucose,Whole Blood 186 mg/dL (70-110)
[2024-02-21] MEDS ORDERED: lisinopriL 20 MG TAB PEG/G-TUBE SCH (21:00)
[2024-02-21] MEDS ORDERED: LISINOPRIL-HCTZ 20-25 MG 1 EACH TAB PEG/G-TUBE SCH (21:00)
[2024-02-21] MEDS: ATORVASTATIN 40 MG TAB PEG/G-TUBE SCH (21:12)
[2024-02-21] MEDS: QUEtiapine 25 MG TAB PO SCH (21:12)
[2024-02-21] MEDS: amLODIPine 10 MG TAB PEG/G-TUBE SCH (21:12)
[2024-02-21] MEDS: SENNOSIDES-DOCUSATE SODIUM 1 EACH TAB PO SCH (21:12)
[2024-02-21] MEDS: ENOXAPARIN 40 MG/0.4 ML SYRINGE SQ SCH (21:15)
[2024-02-22 05:04] LABS: African American GFR (CKD) >90 (>60 ml/min/1.73 sqM); Anion Gap 3 mmol/L; Blood Urea Nitrogen 37 mg/dL (9-20); Calcium 10.5 mg/dL (8.4-10.2); Carbon Dioxide 32 mmol/L (22-30); Chloride 118 mmol/L (98-107); Glucose 128 mg/dL (74-99); Non-African American GFR(CKD) >90 (>60 ml/min/1.73 sqM); Potassium 3.7 mmol/L (3.5-5.1); Sodium 153 mmol/L (137-145)
[2024-02-22 06:49] LABS: Glucose,Whole Blood 89 mg/dL (70-110)
[2024-02-22] MEDS: FERROUS SULFATE 325 MG TAB PO SCH (09:20)
[2024-02-22 12:18] LABS: Glucose,Whole Blood 102 mg/dL (70-110)
[2024-02-22] MEDS: INSULIN ASPART (NovoLOG) 100 UNIT/ML VIAL SQ SCH (12:49)
--- NOTE | 2024-02-22 13:45 | XR ---
EXAMINATION TYPE: XR KUB DATE OF EXAM: 02/22/2024 COMPARISON: None INDICATION: PEG tube placement check TECHNIQUE: Single view abdomen supine view FINDINGS: There is nonspecific bowel gas pattern. Air is within the stomach. PEG tube enters the fundus of the stomach. Contrast within the stomach. No extravasation is evident. Psoas margins are normal. No organomegaly is present. IMPRESSION: 1. PEG tube tip within the stomach.
[2024-02-22] MEDS ORDERED: HYDROcodone/APAP 5-325MG 1 EACH TAB PO PRN (16:04)
--- NOTE | 2024-02-22 16:05 | P.GSCN ---
History of Present Illness Consult date: 02/22/24 History of present illness: CHIEF COMPLAINT: Weakness HISTORY OF PRESENT ILLNESS: This is a 83-year-old male with history of throat cancer and unable to take an oral intake. Family is at bedside. They report that patient had PEG tube placement about a week ago at [facility]. He is in the process of beginning radiation and chemo treatment. Patient was coming back fr om the bathroom where he accidentally pulled on his PEG tube. They were concerned that the PEG tube may have been pulled out. Per nursing staff it has been functioning appropriately. Patient denies any abdominal pain. PAST MEDICAL HISTORY: See list. PAST SURGICAL HISTORY: See list. MEDICATIONS: See list. ALLERGIES: See list. SOCIAL HISTORY: No illicit drug use. REVIEW OF SYSTEMS: CONSTITUTIONAL: Denies fever or chills. HEENT: Denies blurred vision, vision changes, or eye pain. Denies hemoptysis ENDOCRINE: Denies heat or cold intolerance. CARDIOVASCULAR: Denies chest pain or pressure. RESPIRATORY: No shortness of breath. GASTROINTESTINAL: Denies abdominal pain. Denies nausea or vomiting. NEURO: Denies history of seizures. PSYCH: No depression or suicidal ideation HEMATOLOGIC: Denies bleeding disorders. LYMPHATIC: The patient denies any lumps and bumps around the neck. GENITOURINARY: Denies any blood in urine or increased urinary frequency. MUSCULOSKELETAL: Denies myalgias. Denies joint swelling. Denies decreased range of motion beyond patients baseline. SKIN: Denies pruitis. Denies rash. PHYSICAL EXAM: VITAL SIGNS: Reviewed GENERAL: Well-developed in no acute distress. HEENT: No sclera icterus. Extraocular movements grossly intact. Moist buccal mucosa. Head is atraumatic, normocephalic. Hears conversational speech. No nasal drainage. NECK: Patient has trach collar CHEST: Non-labored respirations and equal bilateral excursions. CARDIOVASCULAR: Palpable 2+ radial pulses. ABDOMEN: Soft. Nondistended. Nontender PEG tube site with mild erythema minimal drainage that looks like tube feeds. Nontender. MUSCULOSKELETAL: No clubbing or cyanosis. NEUROLOGIC: No focal or lateralizing signs. Cranial nerves II through XII grossly intact. PSYCH: Appropriate affect. Alert and oriented to person, place and time. SKIN: Well perfused. Good skin turgor. LABORATORY DATA: WBC 13.1 Hgb 9.4 platelets 345 Sodium is 153 potassium 3.7 creatinine 0.55 A1c 9.2 IMAGING: ASSESSMENT: 1. Possible dislodgment of PEG tube 2. Throat cancer PLAN: -Hold tube feeds for now -Pegogram xray ordered to check for PEG tube placement -Further recommendations forthcoming per surgeon Physician Door Core Assembler note has been reviewed by physician. Signing provider agrees with the documented findings, assessment, and plan of care. Past Medical History Past Medical History: Cancer, Diabetes Mellitus, Hyperlipidemia, Hypertension, Osteoarthritis (OA) Additional Past Medical History / Comment(s): Throat cancer diagnosed (December 2023) History of Any Multi-Drug Resistant Organisms: None Reported Past Surgical History: Back Surgery, Heart Catheterization, Joint Replacement, Orthopedic Surgery Additional Past Surgical History / Comment(s): bilat knees arthoscopy, lumbar laminectomy, colonoscopy, warthins parotid cyst removal, lt hip replacement Past Anesthesia/Blood Transfusion Reactions: No Reported Reaction Additional Past Anesthesia/Blood Transfusion Reaction / Comm: agitation with laminectomy anesthesia Past Psychological History: No Psychological Hx Reported Smoking Status: Former smoker Past Alcohol Use History: None Reported Past Drug Use History: None Reported - Past Family History Mother Family Medical History: Cancer Additional Family Medical History / Comment(s): sarcoma ? Medications and Allergies Home Medications Medication Instructions Recorded Confirmed Type amLODIPine [Norvasc] 10 mg PEG/G-TUBE HS 04/16/19 02/21/24 History Atorvastatin [Lipitor] 40 mg PEG/G-TUBE HS 02/21/24 02/21/24 History Ferrous Sulfate [Feosol] 325 mg PEG/G-TUBE DAILY 02/21/24 02/21/24 History Gabapentin [Neurontin] 200 mg PEG/G-TUBE TID 02/21/24 02/21/24 History HYDROcodone/APAP 10-325MG [[place] 1 tab PEG/G-TUBE Q6HR PRN 02/21/24 02/21/24 History 10-325] Insulin Aspart [NovoLOG Flexpen] See Protocol SQ AC-TID 02/21/24 02/21/24 History Insulin Glargine,Hum.rec.anlog 20 units SQ HS 02/21/24 02/21/24 History [Lantus Solostar Pen] Lisinopril-Hctz 20-25 mg 1 tab PEG/G-TUBE DAILY 02/21/24 02/21/24 History [Zestoretic 20-25] Metoprolol Succinate (ER) [Toprol 25 mg PEG/G-TUBE DAILY 02/21/24 02/21/24 History Xl] oxyCODONE HCL [Oxycodone HCl] 10 mg PEG/G-TUBE Q6H PRN 02/21/24 02/21/24 History Allergies Allergy/AdvReac Type Severity Reaction Status Date / Time Penicillins Allergy Rash/Hives Verified 02/21/24 07:15 erythromycin base AdvReac flu like Verified 02/21/24 07:15 symptoms Surgical - Exam Vital Signs Temp Pulse Resp BP Pulse Ox 98.0 F 80 18 106/51 94 L 02/20/24 22:20 02/20/24 22:20 02/20/24 22:20 02/20/24 22:20 02/20/24 22:20 Results - Labs 02/20/24 22:50 02/22/24 04:20 Abnormal Lab Results - Last 24 Hours (Table) 02/21/24 02/21/24 02/22/24 Range/Units 17:25 20:24 04:20 Sodium (137-145) mmol/L Chloride (98-107) mmol/L Carbon Dioxide (22-30) mmol/L BUN (9-20) mg/dL Creatinine (0.66-1.25) mg/dL Glucose (74-99) mg/dL POC Glucose (mg/dL) 202 H 186 H (70-110) mg/dL Hemoglobin A1c 9.2 H (<=6.0) % Calcium (8.4-10.2) mg/dL 02/22/24 Range/Units 04:20 Sodium 153 H (137-145) mmol/L Chloride 118 H (98-107) mmol/L Carbon Dioxide 32 H (22-30) mmol/L BUN 37 H (9-20) mg/dL Creatinine 0.55 L (0.66-1.25) mg/dL Glucose 128 H (74-99) mg/dL POC Glucose (mg/dL) (70-110) mg/dL Hemoglobin A1c (<=6.0) % Calcium 10.5 H (8.4-10.2) mg/dL Diabetes panel 02/22/24 02/22/24 Range/Units 04:20 04:20 Sodium 153 H (137-145) mmol/L Potassium 3.7 (3.5-5.1) mmol/L Chloride 118 H (98-107) mmol/L Carbon Dioxide 32 H (22-30) mmol/L BUN 37 H (9-20) mg/dL Creatinine 0.55 L (0.66-1.25) mg/dL Glucose 128 H (74-99) mg/dL Hemoglobin A1c 9.2 H (<=6.0) % Calcium 10.5 H (8.4-10.2) mg/dL Calcium panel 02/22/24 Range/Units 04:20 Calcium 10.5 H (8.4-10.2) mg/dL Pituitary panel 02/22/24 Range/Units 04:20 Sodium 153 H (137-145) mmol/L Potassium 3.7 (3.5-5.1) mmol/L Chloride 118 H (98-107) mmol/L Carbon Dioxide 32 H (22-30) mmol/L BUN 37 H (9-20) mg/dL Creatinine 0.55 L (0.66-1.25) mg/dL Glucose 128 H (74-99) mg/dL Calcium 10.5 H (8.4-10.2) mg/dL Adrenal panel 02/22/24 Range/Units 04:20 Sodium 153 H (137-145) mmol/L Potassium 3.7 (3.5-5.1) mmol/L Chloride 118 H (98-107) mmol/L Carbon Dioxide 32 H (22-30) mmol/L BUN 37 H (9-20) mg/dL Creatinine 0.55 L (0.66-1.25) mg/dL Glucose 128 H (74-99) mg/dL Calcium 10.5 H (8.4-10.2) mg/dL
--- NOTE | 2024-02-22 16:10 | P.PN ---
Progress Note - Text Progress Note Date: 02/22/24 Chief Complaint: Increasing confusion This is a pleasant 83-year-old patient, follows with Dr. Castro. 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 At [facility]. Patient been followed by Dr. Harlan Burns oncologist and radiation oncologist Dr. Calvin Mohan. Patient lives with his . Does use a walker. About a week ago at [facility] patient had a PEG tube placed and tracheostomy tube placed. Patient's sugars have been uncontrolled for 6 some time. Patient now brought in for increasing confusion. And Accu-Cheks. Uncontrolled. At the baseline normally has a bowel movement once or twice a week. Does have intermittent cough. Not able to clear up his sputum well. I was informed that the PET scan done outpatient only showed lymph nodes in the neck. Lighting up Patient is accompanied by his , daughter and son in the room. Patient himself is able to answer simple questions. February 3: Patient was a bit delirious agitated around 2:00 in the morning. Will increase patient Seroquel to 37.5 mg. Patient's PEG tube basis come loose. Surgery consulted. Tolerating bolus feeding. Sodium started to come down. Still has some episodes of slight confusion. Since pain is well-controlled will cut back dose of Neurontin to twice daily from 3 times daily. Also [place] be changed from [place] 10 to [place] 5 every 6 as needed. This was discussed with the son at the bedside. Patient is not been complaining of any pain. Active Medications Acetaminophen (Acetaminophen Tab 325 Mg Tab) 650 mg PO Q6HR PRN PRN Reason: Fever and/ or Mild Pain Hydrocodone Bitart/Acetaminophen (Hydrocodone/Apap 5-325mg 1 Each Tab) 1 each PO Q6HR PRN PRN Reason: Pain Amlodipine Besylate (Amlodipine 10 Mg Tab) 10 mg PEG/G-TUBE HS [facility] Last Admin: 02/21/24 21:12 Dose: 10 mg Atorvastatin Calcium (Atorvastatin 40 Mg Tab) 40 mg PEG/G-TUBE HS [facility] Last Admin: 02/21/24 21:12 Dose: 40 mg Dextrose/Water (Dextrose 50% Syringe 50 Ml) 25 ml IVP PER PROTOCOL PRN; Protocol PRN Reason: Hypoglycemia Dextrose/Water (Dextrose 50% Syringe 50 Ml) 50 ml IVP PER PROTOCOL PRN; Protocol PRN Reason: Hypoglycemia Enoxaparin Sodium (Enoxaparin 40 Mg/0.4 Ml Syringe) 40 mg SQ DAILY [facility] Last Admin: 02/22/24 09:30 Dose: 40 mg Ferrous Sulfate (Ferrous Sulfate 325 Mg Tab) 325 mg PO DAILY [facility] Last Admin: 02/22/24 09:20 Dose: 325 mg Gabapentin (Gabapentin 100 Mg Cap) 200 mg PEG/G-TUBE BID [facility] Sodium Chloride (Saline 0.45%) 1,000 mls @ 125 mls/hr IV .Q8H [facility] Last Admin: 02/22/24 06:43 Dose: 125 mls/hr Insulin Aspart (Insulin Aspart (Novolog) 100 Unit/Ml Vial) 0 unit SQ ACHS [facility]; Protocol Last Admin: 02/22/24 12:48 Dose: Not Given Insulin Aspart (Insulin Aspart (Novolog) 100 Unit/Ml Vial) 3 unit SQ QID [facility] Last Admin: 02/22/24 12:49 Dose: Not Given Insulin Detemir (Insulin Detemir (Levemir) 100 Unit/Ml Syr) 16 unit SQ [facility] Last Admin: 02/21/24 21:12 Dose: 16 unit Metoprolol Succinate (Metoprolol Succinate (Er) 25 Mg Tab.Er.24h) 25 mg PO DAILY [facility] Last Admin: 02/22/24 09:20 Dose: 25 mg Naloxone HCl (Naloxone 0.4 Mg/Ml 1 Ml Vial) 0.2 mg IV Q2M PRN PRN Reason: Opioid Reversal Quetiapine Fumarate (Quetiapine 25 Mg Tab) 37.5 mg PO [facility] Senna/Docusate Sodium (Sennosides-Docusate Sodium 1 Each Tab) 2 each PO [facility] Last Admin: 02/21/24 21:12 Dose: 2 each Social history: Patient smoked for about 35 years. Does use a walker. Lives with his . Retired. Physical examination: VITAL SIGNS: 97.5, 87, 17, 124/61, 98% on 2 L trach collar GENERAL: Sitting up in a chair EYES: Pupils equal. Conjunctiva apurva l. HEENT: External appearance of nose and ears normal, oral cavity grossly normal. Tracheostomy. NECK: JVD not raised; masses not palpable. HEART: First and second heart sounds are normal; no edema. LUNGS: Respiratory rate normal; decreased breath sounds some crackles. ABDOMEN: Soft, nontender, liver spleen not palpable, no masses palpable. Feeding tube-basis come loose PSYCH: Patient is able to answer simple questions l. MUSCULOSKELETAL:No Clubbing/cyanosis;muscles-grossly intact. OA INVESTIGATIONS, reviewed in the clinical context: February 21: Sodium 153 potassium 3.7 chloride 118 BUN 37 creatinine 0.55 February l 2: Sodium 155 potassium 3.9 chloride 117 BUN 48 creatinine 0.62 calcium 10.9 February 20, 2024: White count 13.1 hemoglobin 9.4 platelets 345 sodium 147 potassium 4.2 BUN 16 creatinine 0.9 blood glucose 361 troponin I less than 0.012 EKG tracing personally reviewed by me-normal sinus rhythm. 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 Including hypernatremia from free water deficit: Slow to respond Collect underlying electrolyte abnormalities -Diabetes mellitus type 2, uncontrolled with hyperglycemia: Better Apparently patient was not getting a diabetic compliant feeding. Started on Glucerna Levemir 16 units nightly. NovoLog 3 units with bolus feeding 4 times a day. With sliding scale coverage. -Hyper natremia, severe. From free water deficit likely from hyperglycemia and decreased oral intake: Slow to respond Half saline. Free water to be given 125 cc before after each bolus feeding. -PEG tube feeding Glucerna-bolus feeding. Dietitian consulted. 4 times a day. Free water 150 cc before and after each feeding Patient had aspiration on modified barium swallow -PEG tube some dislodgment at the bases, off. Surgery consulted -Tracheostomy with care -Essential hypertension Toprol-XL. 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 Being followed by Dr. Harlan Burns from oncology and Dr. Calvin Mohan from radiation oncology -DNR Advance care planning [February 21, 2024] This was discussed with the patient, his , daughter, son-in-law at the bedside. Multiple questions were answered. Patient is to be treated otherwise but patient will be a DNR. Time spent about 25 minutes Pegogram ordered by surgery-tube feeding has been held till then. Cut back Neurontin. Increase Seroquel to 37.5 mg nightly. Cut back strength of [place] to 5. Questions discussed at length with the family. Past Medical History Past Medical History: Cancer, Diabetes Mellitus, Hyperlipidemia, Hypertension, Osteoarthritis (OA) Additional Past Medical History / Comment(s): Throat cancer diagnosed (December 2023) History of Any Multi-Drug Resistant Organisms: None Reported Past Surgical History: Back Surgery, Heart Catheterization, Joint Replacement, Orthopedic Surgery Additional Past Surgical History / Comment(s): bilat knees arthoscopy, lumbar laminectomy, colonoscopy, warthins parotid cyst removal, lt hip replacement Past Anesthesia/Blood Transfusion Reactions: No Reported Reaction Additional Past Anesthesia/Blood Transfusion Reaction / Comment(s): agitation with laminectomy anesthesia Past Psychological History: No Psychological Hx Reported Smoking Status: Former smoker Past Alcohol Use History: None Reported Past Drug Use History: None Reported
[2024-02-22 17:27] LABS: Glucose,Whole Blood 84 mg/dL (70-110)
[2024-02-22] MEDS: SODIUM CHLORIDE 0.45% 1,000 ML IV SCH (19:31)
[2024-02-22 20:05] LABS: Glucose,Whole Blood 82 mg/dL (70-110)
[2024-02-22] MEDS: GABAPENTIN 100 MG CAP PEG/G-TUBE SCH (21:37)
[2024-02-22] MEDS: QUEtiapine 25 MG TAB PO SCH (21:38)
[2024-02-23 02:22] LABS: Glucose,Whole Blood 98 mg/dL (70-110)
[2024-02-23 04:01] LABS: African American GFR (CKD) >90 (>60 ml/min/1.73 sqM); Anion Gap 6 mmol/L; Blood Urea Nitrogen 23 mg/dL (9-20); Calcium 9.9 mg/dL (8.4-10.2); Carbon Dioxide 30 mmol/L (22-30); Chloride 114 mmol/L (98-107); Glucose 112 mg/dL (74-99); Non-African American GFR(CKD) >90 (>60 ml/min/1.73 sqM); Potassium 3.6 mmol/L (3.5-5.1); Sodium 150 mmol/L (137-145)
[2024-02-23 05:45] LABS: Glucose,Whole Blood 114 mg/dL (70-110)
--- NOTE | 2024-02-23 09:49 | P.CONS ---
History of Present Illness - Reason for Consult Consult date: 02/22/24 [facility] Requesting physician: Bay Portillo - Chief Complaint weakness, hyperglycemia - History of Present Illness Patient is a 83 year old male with a significant history of squamous cell carcinoma of head/neck. He began having enlarging mass in left side of neck. CT Scan revealed left pyriform sinus mass C/W malignancy. He was evaluated by Dr Vazquez. FNA of cervical mass was positive for squamous cell Carcinoma (P16 could not be done due to small specimen size). Discussed natural history of stage IV-A ([id number]) with patient & family, and recommended concurrent Radiation therapy/weekly chemotherapy (Carboplatinum+Taxol). Advised G tube placement before concurrent therapy started (PEG tube not advised per Dr Zamora). Patient also found to be iron deficient and was given 2 doses feraheme last month. Patient had tracheostomy placed last week at [facility]. He has not started systemic treatment yet. He is scheduled for simulation with Dr. Mohan on 02/24. Patient presented to the emergency room with complaints of increasing weakness and hyperglycemia. Patient was started on tube feedings while inpatient last week at [facility] and was also started on insulin. Son states since discharge they have been having issues controlling blood sugars which caused him to present to the emergency room for further evaluation. Tube feeding formula now changed to Glucerna. Upon presentation blood glucose was noted at 361. Quick and long acting insulin are being given, and since admission blood sugars have been better controlled. Patient also found to be hypernatremic with sodium 153. Calcium 11.0. Creatinine 0.55, GFR > 90. WBC 13.1, hemoglobin 9.4, platelets 345,000. Review of Systems 10 point ROS is negative except as stated in the HPI Past Medical History Past Medical History: Cancer, Diabetes Mellitus, Hyperlipidemia, Hypertension, Osteoarthritis (OA) Additional Past Medical History / Comment(s): Throat cancer diagnosed (December 2023) History of Any Multi-Drug Resistant Organisms: None Reported Past Surgical History: Back Surgery, Heart Catheterization, Joint Replacement, Orthopedic Surgery Additional Past Surgical History / Comment(s): bilat knees arthoscopy, lumbar laminectomy, colonoscopy, warthins parotid cyst removal, lt hip replacement Past Anesthesia/Blood Transfusion Reactions: No Reported Reaction Additional Past Anesthesia/Blood Transfusion Reaction / Comm: agitation with laminectomy anesthesia Past Psychological History: No Psychological Hx Reported Smoking Status: Former smoker Past Alcohol Use History: None Reported Past Drug Use History: None Reported - Past Family History Mother Family Medical History: Cancer Additional Family Medical History / Comment(s): sarcoma ? Medications and Allergies Home Medications Medication Instructions Recorded Confirmed Type amLODIPine [Norvasc] 10 mg PEG/G-TUBE HS 04/16/19 02/21/24 History Atorvastatin [Lipitor] 40 mg PEG/G-TUBE HS 02/21/24 02/21/24 History Ferrous Sulfate [Feosol] 325 mg PEG/G-TUBE DAILY 02/21/24 02/21/24 History Gabapentin [Neurontin] 200 mg PEG/G-TUBE TID 02/21/24 02/21/24 History HYDROcodone/APAP 10-325MG [[place] 1 tab PEG/G-TUBE Q6HR PRN 02/21/24 02/21/24 History 10-325] Insulin Aspart [NovoLOG Flexpen] See Protocol SQ AC-TID 02/21/24 02/21/24 History Insulin Glargine,Hum.rec.anlog 20 units SQ HS 02/21/24 02/21/24 History [Lantus Solostar Pen] Lisinopril-Hctz 20-25 mg 1 tab PEG/G-TUBE DAILY 02/21/24 02/21/24 History [Zestoretic 20-25] Metoprolol Succinate (ER) [Toprol 25 mg PEG/G-TUBE DAILY 02/21/24 02/21/24 History Xl] oxyCODONE HCL [Oxycodone HCl] 10 mg PEG/G-TUBE Q6H PRN 02/21/24 02/21/24 History Allergies Allergy/AdvReac Type Severity Reaction Status Date / Time Penicillins Allergy Rash/Hives Verified 02/21/24 07:15 erythromycin base AdvReac flu like Verified 02/21/24 07:15 symptoms Physical Exam Vitals: Vital Signs Temp Pulse Resp BP Pulse Ox FiO2 02/22/24 14:15 98.7 F 75 17 128/72 95 02/22/24 09:40 17 02/22/24 08:31 28 02/22/24 07:25 97.5 F L 87 17 124/61 98 02/22/24 02:41 98.2 F 78 15 134/76 96 02/22/24 01:49 83 02/21/24 21:17 88 127/68 02/21/24 21:13 88 02/21/24 18:50 98.5 F 81 16 108/61 97 Intake and Output 02/22/24 02/22/24 02/22/24 06:59 14:59 22:59 Other: Voiding Method Toilet # Voids 1 # Bowel Movements 1 Weight 73.482 kg - Constitutional General appearance: no acute distress - EENT tracheotomy in situ - Respiratory Respiratory: bilateral: diminished - Cardiovascular Rhythm: regular Heart sounds: normal: S1, S2 - Integumentary Integumentary: no cyanotic - Neurologic lethargic - Musculoskeletal Musculoskeletal: generalized weakness Results CBC & Chem 7: 02/20/24 22:50 02/23/24 03:34 Labs: Abnormal Lab Results - Last 24 Hours (Table) 02/21/24 02/21/24 02/22/24 Range/Units 17:25 20:24 04:20 Sodium (137-145) mmol/L Chloride (98-107) mmol/L Carbon Dioxide (22-30) mmol/L BUN (9-20) mg/dL Creatinine (0.66-1.25) mg/dL Glucose (74-99) mg/dL POC Glucose (mg/dL) 202 H 186 H (70-110) mg/dL Hemoglobin A1c 9.2 H (<=6.0) % Calcium (8.4-10.2) mg/dL 02/22/24 Range/Units 04:20 Sodium 153 H (137-145) mmol/L Chloride 118 H (98-107) mmol/L Carbon Dioxide 32 H (22-30) mmol/L BUN 37 H (9-20) mg/dL Creatinine 0.55 L (0.66-1.25) mg/dL Glucose 128 H (74-99) mg/dL POC Glucose (mg/dL) (70-110) mg/dL Hemoglobin A1c (<=6.0) % Calcium 10.5 H (8.4-10.2) mg/dL Chest x-ray: report reviewed Abdominal x-ray: report reviewed Assessment and Plan (1) Squamous cell carcinoma of head and neck Current Visit: Yes Status: Acute Priority: High Code(s): C44.42 - SQUAMOUS CELL CARCINOMA OF SKIN OF SCALP AND NECK SNOMED Code(s): 760368691 (2) Dehydration Current Visit: Yes Status: Acute Priority: High Code(s): E86.0 - DEHYDRATION SNOMED Code(s): 01115815 (3) Hyperglycemia Current Visit: Yes Status: Acute Priority: High Code(s): R73.9 - HYPERGLYCEMIA, UNSPECIFIED SNOMED Code(s): 40811180 Plan: Hyperglycemia, dehydration: Presented to the emergency room with complaints of increasing weakness and hyperglycemia. Patient was started on tube feedings while inpatient last week at [facility] and was also started on insulin. Son states since discharge they have been having issues controlling blood sugars. -Upon presentation blood glucose was noted at 361. Quick and long acting insulin are being given, and since admission blood sugars have been better controlled. Tube feeding formula now changed to Glucerna. -Patient also found to be hypernatremic with sodium 153. Calcium 11.0. Findings likely related to dehydration, and would expect these to improve with hydration Squamous cell carcinoma of head and neck: -CT Scan revealed left pyriform sinus mass C/W malignancy. FNA of cervical mass was positive for squamous cell Carcinoma. He is stage IV-A ([id number]) -Recommended concurrent Radiation therapy/weekly chemotherapy (Carboplatinum+Taxol). -Treatment has not started yet, as patient had to have G tube placed. He also had tracheostomy placed last week at [facility] -Scheduled for simulation with Dr. Mohan on 02/24 at [address]am[address] Spoke with Dr. Blue, they will try to complete sim inpt sunday morning -Patient will be going to rehab upon discharge. Discussed with pt/family that treatment will be on hold during rehab. Will continue to follow and schedule clinic f/u upon d/c so treatment can be scheduled Doctor attests: I performed a history and physical examination of this patient, developed impression and plan of care. Discussed with dictator. I agree with dictators note, documented as a scribe.
[2024-02-23 10:59] LABS: Glucose,Whole Blood 208 mg/dL (70-110)
[2024-02-23] MEDS: ACETAMINOPHEN TAB 325 MG TAB PO PRN (13:05)
--- NOTE | 2024-02-23 14:06 | P.PN ---
Subjective Progress Note Date: 02/23/24 This is a pleasant 83-year-old patient, follows with Dr. Castro. 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 At [facility]. Patient been followed by Dr. Harlan Burns oncologist and radiation oncologist Dr. Calvin Mohan. Patient lives with his . Does use a walker. About a week ago at [facility] patient had a PEG tube placed and tracheostomy tube placed. Patient's sugars have been uncontrolled for 6 some time. Patient now brought in for increasing confusion. And Accu-Cheks. Uncontrolled. At the baseline normally has a bowel movement once or twice a week. Does have intermittent cough. Not able to clear up his sputum well. I was informed that the PET scan done outpatient only showed lymph nodes in the neck. Lighting up Patient is accompanied by his , daughter and son in the room. Patient himself is able to answer simple questions. February 3: Patient was a bit delirious agitated around 2:00 in the morning. Will increase patient Seroquel to 37.5 mg. Patient's PEG tube basis come loose. Surgery consulted. Tolerating bolus feeding. Sodium started to come down. Still has some episodes of slight confusion. Since pain is well-controlled will cut back dose of Neurontin to twice daily from 3 times daily. Also [place] be changed from [place] 10 to [place] 5 every 6 as needed. This was discussed with the son at the bedside. Patient is not been complaining of any pain 5/4. Patient seen and examined. Patient sitting upright in the chair. Getting tube feeding. REVIEW OF SYSTEMS: CONSTITUTIONAL: No fever, no malaise,. CARDIOVASCULAR: No chest pain, no palpitations, no syncope. PULMONARY: No shortness of breath, no cough, GASTROINTESTINAL: No diarrhea, no nausea, no vomiting, no abdominal pain. NEUROLOGICAL: No headaches, no weakness, PHYSICAL EXAMINATION: GENERAL: The patient is alert and oriented x3, not in any acute distress. Chronically ill looking, trach seen HEENT: Pupils are round and equally reacting to light. EOMI. No scleral icterus. No conjunctival pallor. Normocephalic, atraumatic. No pharyngeal erythema. No thyromegaly. CARDIOVASCULAR: S1 and S2 present. No murmurs, rubs, or gallops. PULMONARY: Chest is clear to auscultation, no wheezing or crackles. ABDOMEN: Soft, nontender, nondistended, normoactive bowel sounds. No palpable organomegaly. PEG tube seen MUSCULOSKELETAL: No joint swelling or deformity. EXTREMITIES: No cyanosis, clubbing, or pedal edema. NEUROLOGICAL: Gross neurological examination did not reveal any focal deficits. SKIN: No rashes. Assessment and plan -Acute delirium metabolic encephalopathy from hyperglycemia and other electrolyte abnormalities. Including hypernatremia from free water deficit: Monitor vital signs Monitor CMP Continue IV fluids -Diabetes mellitus type 2, uncontrolled with hyperglycemia: Levemir 16 units nightly. NovoLog 3 units with bolus feeding 4 times a day. With sliding scale coverage. -Hyper natremia, severe. From free water deficit likely from hyperglycemia and decreased oral intake: Monitor CMP Continue IV fluids Continue free water pushes with bolus feeding -PEG tube feeding Glucerna-bolus feeding. Dietitian consulted. 4 times a day. Free water 150 cc before and after each feeding Patient had aspiration on modified barium swallow -PEG tube some dislodgment at the bases, off. Surgery consulted -Tracheostomy with care -Essential hypertension Toprol-XL. 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 Being followed by Dr. Harlan Burns from oncology and Dr. Calvin Mohan from radiation oncology Labs and medication were reviewed.. Continue same treatment. Continue with symptomatic treatment. Resume home medication. Monitor labs and vitals. DVT and GI prophylaxis. Further recommendations as per clinical course of the patient Dictation was produced using [employer]) dictation software. please excuse any grammatical, word or spelling errors. Objective - Vital Signs Vital signs: Vital Signs Temp 97.9 F 02/23/24 08:00 Pulse 91 02/23/24 08:00 Resp 16 02/23/24 08:00 BP 132/71 02/23/24 08:00 Pulse Ox 98 02/23/24 08:00 FiO2 28 02/23/24 08:47 Intake & Output 02/22/24 02/23/24 02/23/24 18:59 06:59 18:59 Weight 73.482 kg 73.8 kg Other: Voiding Method Toilet Toilet # Voids 1 5 1 # Bowel Movements 1 - Labs CBC & Chem 7: 02/20/24 22:50 02/23/24 03:34 Labs: Abnormal Lab Results - Last 24 Hours (Table) 02/23/24 02/23/24 Range/Units 03:34 05:44 Sodium 150 H (137-145) mmol/L Chloride 114 H (98-107) mmol/L BUN 23 H (9-20) mg/dL Creatinine 0.48 L (0.66-1.25) mg/dL Glucose 112 H (74-99) mg/dL POC Glucose (mg/dL) 114 H (70-110) mg/dL
[2024-02-23 16:50] LABS: Glucose,Whole Blood 157 mg/dL (70-110)
[2024-02-23 20:29] LABS: Glucose,Whole Blood 175 mg/dL (70-110)
[2024-02-24 06:42] LABS: Glucose,Whole Blood 87 mg/dL (70-110)
[2024-02-24 11:13] LABS: Glucose,Whole Blood 101 mg/dL (70-110)
--- NOTE | 2024-02-24 11:27 | P.PN ---
Subjective Progress Note Date: 02/24/24 Doing well Objective - Vital Signs Vital signs: Vital Signs Temp 98.5 F 02/24/24 08:00 Pulse 87 02/24/24 08:00 Resp 16 02/24/24 08:00 BP 124/64 02/24/24 08:00 Pulse Ox 98 02/24/24 10:19 FiO2 28 02/24/24 10:19 Intake & Output 02/23/24 02/24/24 02/24/24 18:59 06:59 18:59 Weight 76.2 kg Other: Voiding Method Toilet Urinal Urinal # Voids 2 1 # Bowel Movements 1 - Labs CBC & Chem 7: 02/20/24 22:50 02/23/24 03:34 Labs: Abnormal Lab Results - Last 24 Hours (Table) 02/23/24 02/23/24 Range/Units 16:48 20:28 POC Glucose (mg/dL) 157 H 175 H (70-110) mg/dL
--- NOTE | 2024-02-24 12:44 | P.PN ---
Subjective Progress Note Date: 02/24/24 This is a pleasant 83-year-old patient, follows with Dr. Castro. 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 At [facility]. Patient been followed by Dr. Harlan Burns oncologist and radiation oncologist Dr. Calvin Mohan. Patient lives with his . Does use a walker. About a week ago at [facility] patient had a PEG tube placed and tracheostomy tube placed. Patient's sugars have been uncontrolled for 6 some time. Patient now brought in for increasing confusion. And Accu-Cheks. Uncontrolled. At the baseline normally has a bowel movement once or twice a week. Does have intermittent cough. Not able to clear up his sputum well. I was informed that the PET scan done outpatient only showed lymph nodes in the neck. Lighting up Patient is accompanied by his , daughter and son in the room. Patient himself is able to answer simple questions. February 3: Patient was a bit delirious agitated around 2:00 in the morning. Will increase patient Seroquel to 37.5 mg. Patient's PEG tube basis come loose. Surgery consulted. Tolerating bolus feeding. Sodium started to come down. Still has some episodes of slight confusion. Since pain is well-controlled will cut back dose of Neurontin to twice daily from 3 times daily. Also [place] be changed from [place] 10 to [place] 5 every 6 as needed. This was discussed with the son at the bedside. Patient is not been complaining of any pain 5/4. Patient seen and examined. Patient sitting upright in the chair. Getting tube feeding. 5/5. Patient seen and examined. Patient having increased secretion from the trach site, also complaining of pain in the neck at the trach site. Denies any shortness of breath. Complaining of insomnia as well REVIEW OF SYSTEMS: CONSTITUTIONAL: No fever, no malaise,. CARDIOVASCULAR: No chest pain, no palpitations, no syncope. PULMONARY: As mentioned above GASTROINTESTINAL: No diarrhea, no nausea, no vomiting, no abdominal pain. NEUROLOGICAL: No headaches, no weakness, PHYSICAL EXAMINATION: GENERAL: The patient is alert and oriented x3, not in any acute distress. Chronically ill looking, trach seen HEENT: Pupils are round and equally reacting to light. EOMI. No scleral icterus. No conjunctival pallor. Normocephalic, atraumatic. No pharyngeal erythema. No thyromegaly. CARDIOVASCULAR: S1 and S2 present. No murmurs, rubs, or gallops. PULMONARY: Chest is clear to auscultation, no wheezing or crackles. ABDOMEN: Soft, nontender, nondistended, normoactive bowel sounds. No palpable organomegaly. PEG tube seen MUSCULOSKELETAL: No joint swelling or deformity. EXTREMITIES: No cyanosis, clubbing, or pedal edema. NEUROLOGICAL: Gross neurological examination did not reveal any focal deficits. SKIN: No rashes. Assessment and plan -Acute delirium metabolic encephalopathy from hyperglycemia and other electrolyte abnormalities. Including hypernatremia from free water deficit: Monitor vital signs Monitor CMP Continue IV fluids Ordered sputum cultures -Diabetes mellitus type 2, uncontrolled with hyperglycemia: Levemir 16 units nightly. NovoLog 3 units with bolus feeding 4 times a day. With sliding scale coverage. -Hyper natremia, severe. From free water deficit likely from hyperglycemia and decreased oral intake: Monitor CMP Continue IV fluids Continue free water pushes with bolus feeding -PEG tube feeding Glucerna-bolus feeding. Dietitian consulted. 4 times a day. Free water 150 cc before and after each feeding Patient had aspiration on modified barium swallow -PEG tube some dislodgment at the bases, off. Surgery following -Tracheostomy with care Sputum culture ordered -Essential hypertension Toprol-XL. 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 Being followed by Dr. Harlan Burns from oncology and Dr. Calvin Mohan from radiation oncology Labs and medication were reviewed.. Continue same treatment. Continue with symptomatic treatment. Resume home medication. Monitor labs and vitals. DVT and GI prophylaxis. Further recommendations as per clinical course of the patient Dictation was produced using [employer] dictation software. please excuse any grammatical, word or spelling errors. Objective - Vital Signs Vital signs: Vital Signs Temp 98.5 F 02/24/24 08:00 Pulse 87 02/24/24 08:00 Resp 16 02/24/24 08:00 BP 124/64 02/24/24 08:00 Pulse Ox 98 02/24/24 10:19 FiO2 28 02/24/24 10:19 Intake & Output 02/23/24 02/24/24 02/24/24 18:59 06:59 18:59 Weight 76.2 kg Other: Voiding Method Toilet Urinal # Voids 2 1 # Bowel Movements 1 - Labs CBC & Chem 7: 02/20/24 22:50 02/23/24 03:34 Labs: Abnormal Lab Results - Last 24 Hours (Table) 02/23/24 02/23/24 02/23/24 Range/Units 10:57 16:48 20:28 POC Glucose (mg/dL) 208 H 157 H 175 H (70-110) mg/dL
[2024-02-24 13:00] LABS: Anisocytosis Slight; Basophils % (A) 0 %; Eosinophils # (A) 0.1 k/uL (0-0.7); Eosinophils % (A) 1 %; HCT 33.3 % (39.0-53.0); HGB 9.7 gm/dL (13.0-17.5); Hypochromasia Marked; Lymphocytes # (A) 1.2 k/uL (1.0-4.8); Lymphocytes % (A) 12 %; MCHC 29.1 g/dL (31.0-37.0); MCV 85.7 fL (80.0-100.0); Mean Platelet Volume 10.1; Monocytes # (A) 0.4 k/uL (0-1.0); Monocytes % (A) 5 %; Neutrophils # (A) 7.9 k/uL (1.3-7.7); Neutrophils % (A) 81 %; Platelet Count 303 k/uL (150-450); RBC 3.89 m/uL (4.30-5.90); WBC 9.7 k/uL (3.8-10.6)
[2024-02-24 13:10] LABS: ALT 46 U/L (4-49); AST 37 U/L (17-59); African American GFR (CKD) >90 (>60 ml/min/1.73 sqM); Albumin 2.6 g/dL (3.5-5.0); Albumin/Globulin Ratio 0.7; Alkaline Phosphatase 124 U/L (38-126); Anion Gap 5 mmol/L; Blood Urea Nitrogen 18 mg/dL (9-20); Calcium 9.7 mg/dL (8.4-10.2); Carbon Dioxide 30 mmol/L (22-30); Chloride 108 mmol/L (98-107); Globulin 3.8 g/dL; Glucose 154 mg/dL (74-99); Non-African American GFR(CKD) >90 (>60 ml/min/1.73 sqM); Potassium 3.8 mmol/L (3.5-5.1); Sodium 143 mmol/L (137-145); Total Bilirubin 0.5 mg/dL (0.2-1.3); Total Protein 6.4 g/dL (6.3-8.2)
[2024-02-24 16:36] LABS: Glucose,Whole Blood 121 mg/dL (70-110)
[2024-02-24] MEDS: traZODone HCL 50 MG TAB PO SCH (19:49)
[2024-02-24 20:38] LABS: Glucose,Whole Blood 141 mg/dL (70-110)
[2024-02-25 05:51] LABS: Glucose,Whole Blood 113 mg/dL (70-110)
[2024-02-25 10:55] LABS: Glucose,Whole Blood 132 mg/dL (70-110)
[2024-02-25 11:26] LABS: ALT 55 U/L (10-49); AST 43 U/L (14-35); Albumin 2.7 g/dL (3.8-4.9); Albumin/Globulin Ratio 0.75 Ratio (1.60-3.17); Alkaline Phosphatase 110 U/L (41-126); BUN/Creat Ratio 26.17 Ratio (12.00-20.00); Blood Urea Nitrogen 15.7 mg/dL (9.0-27.0); Calcium 9.6 mg/dL (8.7-10.3); Carbon Dioxide 26.9 mmol/L (21.6-31.8); Chloride 106 mmol/L (96-109); Globulin 3.6 g/dL (1.6-3.3); Glucose 182 mg/dL (70-110); Potassium 4.2 mmol/L (3.5-5.5); Sodium 141 mmol/L (135-145); Total Bilirubin 0.3 mg/dL (0.3-1.2); Total Protein 6.3 g/dL (6.2-8.2)
[2024-02-25 17:05] LABS: Glucose,Whole Blood 116 mg/dL (70-110)
[2024-02-25 20:29] LABS: Glucose,Whole Blood 163 mg/dL (70-110)
--- NOTE | 2024-02-26 06:05 | P.PN ---
Subjective Progress Note Date: 02/25/24 This is a pleasant 83-year-old patient, follows with Dr. Castro. 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 At [facility]. Patient been followed by Dr. Harlan Burns oncologist and radiation oncologist Dr. Calvin Mohan. Patient lives with his . Does use a walker. About a week ago at [facility] patient had a PEG tube placed and tracheostomy tube placed. Patient's sugars have been uncontrolled for 6 some time. Patient now brought in for increasing confusion. And Accu-Cheks. Uncontrolled. At the baseline normally has a bowel movement once or twice a week. Does have intermittent cough. Not able to clear up his sputum well. I was informed that the PET scan done outpatient only showed lymph nodes in the neck. Lighting up Patient is accompanied by his , daughter and son in the room. Patient himself is able to answer simple questions. February 3: Patient was a bit delirious agitated around 2:00 in the morning. Will increase patient Seroquel to 37.5 mg. Patient's PEG tube basis come loose. Surgery consulted. Tolerating bolus feeding. Sodium started to come down. Still has some episodes of slight confusion. Since pain is well-controlled will cut back dose of Neurontin to twice daily from 3 times daily. Also Maljamar be changed from Maljamar 10 to Maljamar 5 every 6 as needed. This was discussed with the son at the bedside. Patient is not been complaining of any pain 02/22. Patient seen and examined. Patient sitting upright in the chair. Getting tube feeding. 02/23. Patient seen and examined. Patient having increased secretion from the trach site, also complaining of pain in the neck at the trach site. Denies any shortness of breath. Complaining of insomnia as well 02/25/2024 Patient seen and evaluated in follow-up currently sitting up in the chair with son at the bedside. Patient did have a sputum culture and recommending a swab around the trachea site as there is thick green drainage surrounding. Dressing was changed and will monitor closely. Patient is scheduled for mapping with radiation oncology today which is currently pending. Patient is maintained on tube feedings with Glucerna with dietary following and blood sugars have been well-controlled on current regimen. Will continue with sliding scale along with long-acting. Follow-up on repeat labs in the a.m. and replace electrolytes per protocol. Son at the bedside reports patient also will be going to [facility] for strength mobility on discharge. Patient is afebrile denies chest pain or worsening shortness of breath. REVIEW OF SYSTEMS: CONSTITUTIONAL: No fever, no malaise,. CARDIOVASCULAR: No chest pain, no palpitations, no syncope. PULMONARY: As mentioned above GASTROINTESTINAL: No diarrhea, no nausea, no vomiting, no abdominal pain. NEUROLOGICAL: No headaches, no weakness, PHYSICAL EXAMINATION: GENERAL: The patient is alert and oriented x3, Chronically ill looking, trach seen, thin built, elderly appearing HEENT: Pupils are round and equally reacting to light. EOMI. No scleral icterus. No conjunctival pallor. Normocephalic, atraumatic. No pharyngeal erythema. No thyromegaly. CARDIOVASCULAR: S1 and S2 present. No murmurs, rubs, or gallops. PULMONARY: Diminished breath sounds bilaterally with some upper bronchial congestion and faint crackles noted at the bases. Diminished expiratory wheezing noted as well ABDOMEN: Soft, nontender, nondistended, normoactive bowel sounds. No palpable organomegaly. PEG tube seen MUSCULOSKELETAL: No joint swelling or deformity. EXTREMITIES: No cyanosis, clubbing, or pedal edema. NEUROLOGICAL: Gross neurological examination did not reveal any focal deficits. Diffusely weak SKIN: No rashes. Assessment: -Acute delirium secondary to metabolic encephalopathy from hyperglycemia and emilie ctrolyte abnormalities including hypernatremia, improved -Diabetes mellitus type 2, uncontrolled with hyperglycemia -Hypernatremia, severe. 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 Plan: Patient is continued on tube feedings with Glucerna with dietary following making adjustments to feedings as needed. Continue monitoring Accu-Cheks before meals and at bedtime and will continue with sliding scale along with long-acting and adjust as needed Encouraged aspiration precautions with head of the bed elevated and patient sitting up frequently PT/OT therapy to evaluate as family reports patient with significant weakness will require ECF on discharge for continued PT/OT therapy and strength and mobility Radiation oncology following working on mapping today to initiate radiation treatments. Patient will follow with Dr. Burns outpatient Will follow-up with repeat labs and replace electrolytes per protocol, monitor sodium level Will discuss with case management/social work regarding discharge planning Due to multiple complex medical issues, prognosis is guarded The impression and plan of care has been dictated by Lisa Watson, Nurse Practitioner as directed. Dr. Kings MD I have performed a history and examination and MDM of this patient, discussed the same with the dictator, and agree with the dictator's assessment and plan as written ,documented as a scribe. Based on total visit time, I have performed more than 50% of the visit. Objective - Vital Signs Vital signs: Vital Signs Temp 98.1 F 02/25/24 07:41 Pulse 87 02/25/24 07:41 Resp 16 02/25/24 07:41 BP 125/66 02/25/24 07:41 Pulse Ox 98 02/25/24 09:01 FiO2 28 02/25/24 09:01 Intake & Output 02/24/24 02/25/24 02/25/24 18:59 06:59 18:59 Other: Voiding Method Urinal Urinal - Labs CBC & Chem 7: 02/24/24 12:39 02/25/24 06:40 Labs: Abnormal Lab Results - Last 24 Hours (Table) 02/24/24 02/24/24 02/24/24 Range/Units 12:39 12:39 16:34 RBC 3.89 L (4.30-5.90) m/uL Hgb 9.7 L (13.0-17.5) gm/dL Hct 33.3 L (39.0-53.0) % MCHC 29.1 L (31.0-37.0) g/dL RDW 18.0 H (11.5-15.5) % Neutrophils # 7.9 H (1.3-7.7) k/uL Chloride 108 H (98-107) mmol/L Creatinine 0.49 L (0.66-1.25) mg/dL Glucose 154 H (74-99) mg/dL POC Glucose (mg/dL) 121 H (70-110) mg/dL Albumin 2.6 L (3.5-5.0) g/dL 02/24/24 02/25/24 Range/Units 20:34 05:50 RBC (4.30-5.90) m/uL Hgb (13.0-17.5) gm/dL Hct (39.0-53.0) % MCHC (31.0-37.0) g/dL RDW (11.5-15.5) % Neutrophils # (1.3-7.7) k/uL Chloride (98-107) mmol/L Creatinine (0.66-1.25) mg/dL Glucose (74-99) mg/dL POC Glucose (mg/dL) 141 H 113 H (70-110) mg/dL Albumin (3.5-5.0) g/dL
[2024-02-26 07:11] LABS: Glucose,Whole Blood 155 mg/dL (70-110)
[2024-02-26 11:40] LABS: Basophils # (A) 0.01 X 10*3/uL (0.00-0.10); Basophils % (A) 0.2 %; Eosinophils % (A) 1.5 %; HCT 29.6 % (39.6-50.0); HGB 8.5 g/dL (13.0-17.0); Lymphocytes # (A) 0.78 X 10*3/uL (0.90-5.00); Lymphocytes % (A) 12.1 %; MCH 24.1 pg (27.0-32.0); MCHC 28.7 g/dL (32.0-37.0); MCV 84.1 FL (80.0-97.0); Mean Platelet Volume 12.3 FL (9.5-12.2); Monocytes # (A) 0.81 X 10*3/uL (0.20-1.00); Monocytes % (A) 12.5 %; NRBC Per 100 WBC 0 X 10*3/uL (0.00-0.01); Neutrophils # (A) 4.74 X 10*3/uL (1.80-7.70); Neutrophils % (A) 73.2 %; Platelet Count 227 X 10*3/uL (140-440); RBC 3.52 X 10*6/uL (4.40-5.60); RDW 18.8 % (11.5-14.5); WBC 6.47 X 10*3/uL (4.50-10.00)
[2024-02-26 11:50] LABS: ALT 55 U/L (10-49); AST 52 U/L (14-35); Albumin 2.5 g/dL (3.8-4.9); Albumin/Globulin Ratio 0.81 Ratio (1.60-3.17); Alkaline Phosphatase 101 U/L (41-126); Calcium 9.3 mg/dL (8.7-10.3); Carbon Dioxide 25.4 mmol/L (21.6-31.8); Chloride 104 mmol/L (96-109); Globulin 3.1 g/dL (1.6-3.3); Glucose 171 mg/dL (70-110); Magnesium 2.3 mg/dL (1.5-2.4); Sodium 139 mmol/L (135-145); Total Bilirubin <0.2 mg/dL (0.3-1.2); Total Protein 5.6 g/dL (6.2-8.2)
[2024-02-26 11:59] LABS: Glucose,Whole Blood 111 mg/dL (70-110)
[2024-02-26] MEDS ORDERED: VANCOMYCIN IV PER PHARMACY 1 EACH MISC MISCELLANE PRN (14:15)
[2024-02-26 16:01] VITALS: BMI 25.2
[2024-02-26] MEDS: CEFEPIME 2 GM in SODIUM CHLORIDE 0.9% 100 ML IVPB SCH (16:05)
[2024-02-26] MEDS: VANCOMYCIN 1,500 MG in SODIUM CHLORIDE 0.9% 500 ML 500 ML IVPB SCH (16:05)
--- NOTE | 2024-02-26 16:50 | P.CNPUL ---
History of Present Illness Consult date: 02/26/24 Requesting physician: Savita Valenzuela Reason for consult: other (Blood from tracheostomy tube) Chief complaint: Generalized weakness, fatigue History of present illness: This is a pleasant 83-year-old male patient who had recently been diagnosed with squamous cell carcinoma of the neck and PET scan revealed a left hypopharynx mass with metastatic disease to the bilateral neck extending down to level 5B bilaterally. Based on these findings he had been sent to ENT at [facility] in [place] and had undergone tracheostomy tube insertion and PEG tube placement. He is following here now with Dr. Niko Wang and Dr. Mohan for chemo and radiation to start soon. He presented here to the emergency room on 02/20/2024 with vague symptoms of generalized weakness, hallucinations, O2 saturations in the 80s. He was found to have diabetes mellitus with uncontrolled hyperglycemia, hypernatremia, metabolic encephalopathy. We are consulted today 02/26/2024 after the patient developed some blood from his tracheostomy tube after being suctioned. His sputum culture is positive for Pseudomonas aeruginosa. Wh ite count 6.4. Hemoglobin 8.5. Platelets 227. Sodium 139. Potassium 4.0. BUN 15. Creatinine 0.5. Glucose 171. AST 52. ALT 55. He has been initiated on cefepime and vancomycin. Lovenox for DVT prophylaxis. He is on Levemir and NovoLog for glucose control. No bleeding noted from the tracheal tube now. No hemoptysis. Admission chest x-ray revealed no consolidation. No pneumothorax. Midline tracheostomy tube in position. He is maintaining good O2 saturations up to 99% on 28% FiO2 via trach collar. Afebrile. Hemodynamically stable. Review of Systems REVIEW OF SYSTEMS: CONSTITUTIONAL: Positive for generalized weakness, fatigue. EYES: Denies change in vision. EARS, NOSE, MOUTH, THROAT: Bilateral neck masses. Denies headaches, denies sore throat. CARDIOVASCULAR: Denies chest pain, palpitations or syncopal episodes. RESPIRATORY: Blood from tracheostomy tube after suctioning. Denies shortness of breath, cough, congestion or hemoptysis. GASTROINTESTINAL: Denies change in appetite, denies abdominal pain GENITOURINARY: Denies hematuria, denies infections. MUSKULOSKELETAL: Denies pain, denies swelling. INTEGUMENTARY: Denies rash, denies eczema. NEUROLOGICAL: Denies recent memory loss, no recent seizure activity. PSYCHIATRIC: Denies anxiety, denies depression. HEMATOLOGIC/LYMPHATIC: Denies anemia, denies enlarged lymph nodes. Past Medical History Past Medical History: Cancer, Diabetes Mellitus, Hyperlipidemia, Hypertension, Osteoarthritis (OA) Additional Past Medical History / Comment(s): Throat cancer diagnosed (December 2023) History of Any Multi-Drug Resistant Organisms: None Reported Past Surgical History: Back Surgery, Heart Catheterization, Joint Replacement, Orthopedic Surgery Additional Past Surgical History / Comment(s): bilat knees arthoscopy, lumbar laminectomy, colonoscopy, warthins parotid cyst removal, lt hip replacement Past Anesthesia/Blood Transfusion Reactions: No Reported Reaction Additional Past Anesthesia/Blood Transfusion Reaction / Comment(s): agitation with laminectomy anesthesia Past Psychological History: No Psychological Hx Reported Smoking Status: Former smoker Past Alcohol Use History: None Reported Past Drug Use History: None Reported - Past Family History Mother Family Medical History: Cancer Additional Family Medical History / Comment(s): sarcoma ? Medications and Allergies Home Medications Medication Instructions Recorded Confirmed Type amLODIPine [Norvasc] 10 mg PEG/G-TUBE HS 04/16/19 02/21/24 History Atorvastatin [Lipitor] 40 mg PEG/G-TUBE HS 02/21/24 02/21/24 History Ferrous Sulfate [Feosol] 325 mg PEG/G-TUBE DAILY 02/21/24 02/21/24 History Gabapentin [Neurontin] 200 mg PEG/G-TUBE TID 02/21/24 02/21/24 History HYDROcodone/APAP 10-325MG [[place] 1 tab PEG/G-TUBE Q6HR PRN 02/21/24 02/21/24 History 10-325] Insulin Aspart [NovoLOG Flexpen] See Protocol SQ AC-TID 02/21/24 02/21/24 History Insulin Glargine,Hum.rec.anlog 20 units SQ HS 02/21/24 02/21/24 History [Lantus Solostar Pen] Lisinopril-Hctz 20-25 mg 1 tab PEG/G-TUBE DAILY 02/21/24 02/21/24 History [Zestoretic 20-25] Metoprolol Succinate (ER) [Toprol 25 mg PEG/G-TUBE DAILY 02/21/24 02/21/24 History Xl] oxyCODONE HCL [Oxycodone HCl] 10 mg PEG/G-TUBE Q6H PRN 02/21/24 02/21/24 History Allergies Allergy/AdvReac Type Severity Reaction Status Date / Time Penicillins Allergy Rash/Hives Verified 02/21/24 07:15 erythromycin base AdvReac flu like Verified 02/21/24 07:15 symptoms Physical Exam Vitals: Vital Signs Temp Pulse Resp BP BP Pulse Ox 02/26/24 13:31 98.2 F 89 16 121/59 99 02/26/24 08:45 88 20 02/26/24 07:11 98.1 F 88 20 134/54 96 02/26/24 01:42 97.8 F 95 18 127/68 97 02/25/24 19:24 97.8 F 85 16 104/50 96 02/25/24 18:12 98.4 F 96 18 142/68 96 Intake and Output 02/26/24 02/26/24 02/26/24 06:59 14:59 22:59 Output Total 200 200 Balance -200 -200 Output: Urine 200 200 Other: Voiding Method Urinal Weight 77.5 kg 77.5 kg GENERAL EXAM: Alert, awake 83-year-old male, on 28% FiO2 via trach collar, sitting up in a chair, comfortable in no apparent distress. HEAD: Normocephalic. EYES: Normal reaction of pupils, equal size. NOSE: Clear with pink turbinates. THROAT: No erythema or exudates. NECK: Tracheostomy tube secured in place. No active bleeding currently. Bilateral masses, no JVD. CHEST: No chest wall deformity. LUNGS: Equal air entry with no crackles, wheeze, rhonchi or dullness. CVS: S1 and S2 normal with no audible murmur, regular rhythm. ABDOMEN: PEG tube exit site clean and dry. No hepatosplenomegaly, normal bowel sounds, no guarding or rigidity. SPINE: No scoliosis or deformity SKIN: No rashes CENTRAL NERVOUS SYSTEM: No focal deficits, tone is normal in all 4 extremities. EXTREMITIES: There is no peripheral edema. No clubbing, no cyanosis. Peripheral pulses are intact. Results - Laboratory Findings CBC and BMP: 02/26/24 07:26 02/26/24 07:26 PT/INR, D-dimer PT 11.5 sec (10.0-12.5) 02/20/24 22:50 INR 1.1 (<1.2) 02/20/24 22:50 Abnormal lab findings: Abnormal Labs 02/20/24 02/20/24 02/20/24 22:23 22:50 22:50 WBC 13.1 H RBC 3.87 L Hgb 9.4 L Hct 31.9 L MCH 24.2 L MCHC 29.4 L RDW 18.5 H MPV Neutrophils # 10.8 H Lymphocytes # Sodium 147 H Chloride 109 H Carbon Dioxide BUN 69 H Creatinine BUN/Creatinine Ratio Glucose 361 H POC Glucose (mg/dL) 350 H Hemoglobin A1c Calcium 11.0 H Total Bilirubin AST ALT Alkaline Phosphatase 133 H Total Protein Albumin 2.8 L Globulin Albumin/Globulin Ratio Urine Glucose (UA) 02/20/24 02/21/24 02/21/24 23:04 00:37 01:22 WBC RBC Hgb Hct MCH MCHC RDW MPV Neutrophils # Lymphocytes # Sodium Chloride Carbon Dioxide BUN Creatinine BUN/Creatinine Ratio Glucose POC Glucose (mg/dL) 285 H 264 H Hemoglobin A1c Calcium Total Bilirubin AST ALT Alkaline Phosphatase Total Protein Albumin Globulin Albumin/Globulin Ratio Urine Glucose (UA) 4+ H 02/21/24 02/21/24 02/21/24 02:09 07:45 11:25 WBC RBC Hgb Hct MCH MCHC RDW MPV Neutrophils # Lymphocytes # Sodium 155 H Chloride 117 H Carbon Dioxide 34 H BUN 48 H Creatinine 0.62 L BUN/Creatinine Ratio Glucose 148 H POC Glucose (mg/dL) 225 H 119 H Hemoglobin A1c Calcium 10.9 H Total Bilirubin AST ALT Alkaline Phosphatase Total Protein Albumin Globulin Albumin/Globulin Ratio Urine Glucose (UA) 02/21/24 02/21/24 02/21/24 12:15 17:25 20:24 WBC RBC Hgb Hct MCH MCHC RDW MPV Neutrophils # Lymphocytes # Sodium Chloride Carbon Dioxide BUN Creatinine BUN/Creatinine Ratio Glucose POC Glucose (mg/dL) 164 H 202 H 186 H Hemoglobin A1c Calcium Total Bilirubin AST ALT Alkaline Phosphatase Total Protein Albumin Globulin Albumin/Globulin Ratio Urine Glucose (UA) 02/22/24 02/22/24 02/23/24 04:20 04:20 03:34 WBC RBC Hgb Hct MCH MCHC RDW MPV Neutrophils # Lymphocytes # Sodium 153 H 150 H Chloride 118 H 114 H Carbon Dioxide 32 H BUN 37 H 23 H Creatinine 0.55 L 0.48 L BUN/Creatinine Ratio Glucose 128 H 112 H POC Glucose (mg/dL) Hemoglobin A1c 9.2 H Calcium 10.5 H Total Bilirubin AST ALT Alkaline Phosphatase Total Protein Albumin Globulin Albumin/Globulin Ratio Urine Glucose (UA) 02/23/24 02/23/24 02/23/24 05:44 10:57 16:48 WBC RBC Hgb Hct MCH MCHC RDW MPV Neutrophils # Lymphocytes # Sodium Chloride Carbon Dioxide BUN Creatinine BUN/Creatinine Ratio Glucose POC Glucose (mg/dL) 114 H 208 H 157 H Hemoglobin A1c Calcium Total Bilirubin AST ALT Alkaline Phosphatase Total Protein Albumin Globulin Albumin/Globulin Ratio Urine Glucose (UA) 02/23/24 02/24/24 02/24/24 20:28 12:39 12:39 WBC RBC 3.89 L Hgb 9.7 L Hct 33.3 L MCH MCHC 29.1 L RDW 18.0 H MPV Neutrophils # 7.9 H Lymphocytes # Sodium Chloride 108 H Carbon Dioxide BUN Creatinine 0.49 L BUN/Creatinine Ratio Glucose 154 H POC Glucose (mg/dL) 175 H Hemoglobin A1c Calcium Total Bilirubin AST ALT Alkaline Phosphatase Total Protein Albumin 2.6 L Globulin Albumin/Globulin Ratio Urine Glucose (UA) 02/24/24 02/24/24 02/25/24 16:34 20:34 05:50 WBC RBC Hgb Hct MCH MCHC RDW MPV Neutrophils # Lymphocytes # Sodium Chloride Carbon Dioxide BUN Creatinine BUN/Creatinine Ratio Glucose POC Glucose (mg/dL) 121 H 141 H 113 H Hemoglobin A1c Calcium Total Bilirubin AST ALT Alkaline Phosphatase Total Protein Albumin Globulin Albumin/Globulin Ratio Urine Glucose (UA) 02/25/24 02/25/24 02/25/24 06:40 10:54 17:03 WBC RBC Hgb Hct MCH MCHC RDW MPV Neutrophils # Lymphocytes # Sodium Chloride Carbon Dioxide BUN Creatinine BUN/Creatinine Ratio 26.17 H Glucose 182 H POC Glucose (mg/dL) 132 H 116 H Hemoglobin A1c Calcium Total Bilirubin AST 43 H ALT 55 H Alkaline Phosphatase Total Protein Albumin 2.7 L Globulin 3.6 H Albumin/Globulin Ratio 0.75 L Urine Glucose (UA) 02/25/24 02/26/24 02/26/24 20:27 07:10 07:26 WBC RBC 3.52 L Hgb 8.5 L Hct 29.6 L MCH 24.1 L MCHC 28.7 L RDW 18.8 H MPV 12.3 H Neutrophils # Lymphocytes # 0.78 L Sodium Chloride Carbon Dioxide BUN Creatinine BUN/Creatinine Ratio Glucose POC Glucose (mg/dL) 163 H 155 H Hemoglobin A1c Calcium Total Bilirubin AST ALT Alkaline Phosphatase Total Protein Albumin Globulin Albumin/Globulin Ratio Urine Glucose (UA) 02/26/24 02/26/24 07:26 11:57 WBC RBC Hgb Hct MCH MCHC RDW MPV Neutrophils # Lymphocytes # Sodium Chloride Carbon Dioxide BUN Creatinine 0.5 L BUN/Creatinine Ratio 30.00 H Glucose 171 H POC Glucose (mg/dL) 111 H Hemoglobin A1c Calcium Total Bilirubin <0.2 L AST 52 H ALT 55 H Alkaline Phosphatase Total Protein 5.6 L Albumin 2.5 L Globulin Albumin/Globulin Ratio 0.81 L Urine Glucose (UA) - Diagnostic Findings Chest x-ray: image reviewed Assessment and Plan Assessment: Bleeding from tracheostomy tube post suctioning, stabilized and no active bleeding 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 We will continue to follow and make further recommendations based on his clinical status I have personally seen and examined the patient, performed the documentation and the assessment and plan as written. Number of minutes spent on the visit: 20.
[2024-02-26 17:12] LABS: Glucose,Whole Blood 196 mg/dL (70-110)
[2024-02-26 20:36] LABS: Glucose,Whole Blood 179 mg/dL (70-110)
--- NOTE | 2024-02-26 22:23 | P.CONS ---
History of Present Illness - Reason for Consult Consult date: 02/26/24 Purulence around newly placed trach Requesting physician: Lisa Watson - Chief Complaint Weakness increasing shortness of breath x few days - History of Present Illness Patient is a 83-year-old male with a past medical history significant for diabetes mellitus hypertension hyperlipidemia osteoarthritis history of throat cancer diagnosed December 2023 in this patient who did have a recent tracheostomy done at outside facility about 2 weeks ago patient has been brought into the hospital about a week ago on 02/20/2024 for evaluation of difficulty controlling his blood sugar also complaining of fatigue and generalized weakness and some hallucination apparently the patient seem to having more cough and is bringing up some purulent sputum and also noticed to have some purulent secretion from his trach site with the patient was started on vancomycin and infectious he was consulted for further management patient denies having any headache or URI symptoms he did have moderate cough as mentioned above but denies any pleuritic chest pain. Denies any worsening pain to the trach site some nausea but no vomiting no abdominal pain or any diarrhea patient on pre sentation to the hospital was afebrile and no fever have recorded subsequently patient was not tachycardic hypotensive currently on a trach collar patient did have mild elevated white count admission of 13.1 however he did have a white count of 6.47 this morning creatinine 0.5 liver enzymes mildly elevated sputum culture obtained which are currently growing gram-negative patient did have a chest x-ray on admission no consolidation Review of Systems Positive point and negatives has been mentioned in the HPI, complete review of systems was performed and all other systems are negative Past Medical History Past Medical History: Cancer, Diabetes Mellitus, Hyperlipidemia, Hypertension, Osteoarthritis (OA) Additional Past Medical History / Comment(s): Throat cancer diagnosed (December 2023) History of Any Multi-Drug Resistant Organisms: None Reported Past Surgical History: Back Surgery, Heart Catheterization, Joint Replacement, Orthopedic Surgery Additional Past Surgical History / Comment(s): bilat knees arthoscopy, lumbar l aminectomy, colonoscopy, warthins parotid cyst removal, lt hip replacement Past Anesthesia/Blood Transfusion Reactions: No Reported Reaction Additional Past Anesthesia/Blood Transfusion Reaction / Comm: agitation with laminectomy anesthesia Past Psychological History: No Psychological Hx Reported Smoking Status: Former smoker Past Alcohol Use History: None Reported Past Drug Use History: None Reported - Past Family History Mother Family Medical History: Cancer Additional Family Medical History / Comment(s): sarcoma ? Medications and Allergies Home Medications Medication Instructions Recorded Confirmed Type amLODIPine [Norvasc] 10 mg PEG/G-TUBE HS 04/16/19 02/21/24 History Atorvastatin [Lipitor] 40 mg PEG/G-TUBE HS 02/21/24 02/21/24 History Ferrous Sulfate [Iron (65 MG 325 mg PEG/G-TUBE DAILY 02/21/24 02/21/24 History Elemental)] Metoprolol Succinate (ER) [Toprol 25 mg PEG/G-TUBE DAILY 02/21/24 02/21/24 History XL] Acetaminophen Tab [Tylenol] 650 mg PO Q6HR PRN tab 02/29/24 Rx Ciprofloxacin HCl [Cipro] 500 mg PO Q12HR #20 tab 02/29/24 Rx Gabapentin [Neurontin] 200 mg PEG/G-TUBE BID #0 02/29/24 02/21/24 Rx INSULIN ASPART (NovoLOG) [NovoLOG 3 unit SQ QID #1 each 02/29/24 Rx (formulary)] Insulin Aspart [NovoLOG Flexpen] See Protocol SQ AC-TID #1 each 02/29/24 Rx Insulin Glargine,Hum.rec.anlog 16 units SQ HS #0 02/29/24 02/21/24 Rx [Lantus Solostar Pen] Sennosides-Docusate Sodium 2 each PO HS #60 tab 02/29/24 Rx [Senokot-S] traZODone HCL [Desyrel] 25 mg PO HS #30 tab 02/29/24 Rx Allergies Allergy/AdvReac Type Severity Reaction Status Date / Time Penicillins Allergy Rash/Hives Verified 02/21/24 07:15 erythromycin base AdvReac flu like Verified 02/21/24 07:15 symptoms Physical Exam Vitals: Vital Signs Temp Pulse Resp BP BP Pulse Ox 02/26/24 13:31 98.2 F 89 16 121/59 99 02/26/24 08:45 88 20 02/26/24 07:11 98.1 F 88 20 134/54 96 02/26/24 01:42 97.8 F 95 18 127/68 97 02/25/24 19:24 97.8 F 85 16 104/50 96 02/25/24 18:12 98.4 F 96 18 142/68 96 Intake and Output 05/06/24 05/07/24 05/07/24 22:59 06:59 14:59 Output Total 200 200 Balance -200 -200 Output: Urine 200 200 Other: Voiding Method Urinal Urinal # Voids 1 # Bowel Movements 1 Weight 77.5 kg GENERAL DESCRIPTION: Elderly male lying in bed, no distress. No tachypnea or accessory muscle of respiration use. HEENT: Shows Pallor , no scleral icterus. Oral mucous membrane is dry. No pharyngeal erythema or thrush NECK: Trach site with minimal erythema no significant drainage LUNGS: Unlabored breathing. Coarse breath sounds bilaterally HEART: S1, S2, regular rate and rhythm. No loud murmur ABDOMEN: Soft, no tenderness , guarding or rigidity, no organomegaly EXTREMITIES: No edema of feet. SKIN: No rash, no masses palpable. NEUROLOGICAL: The patient is awake, alert, oriented x3, mood and affect normal. Results CBC & Chem 7: 02/27/24 07:14 02/27/24 07:14 Labs: Abnormal Lab Results - Last 24 Hours (Table) 02/25/24 02/25/24 02/26/24 Range/Units 17:03 20:27 07:10 RBC (4.40-5.60) X 10*6/uL Hgb (13.0-17.0) g/dL Hct (39.6-50.0) % MCH (27.0-32.0) pg MCHC (32.0-37.0) g/dL RDW (11.5-14.5) % MPV (9.5-12.2) FL Lymphocytes # (0.90-5.00) X 10*3/uL Creatinine (0.6-1.5) mg/dL BUN/Creatinine Ratio (12.00-20.00) Ratio Glucose (70-110) mg/dL POC Glucose (mg/dL) 116 H 163 H 155 H (70-110) mg/dL Total Bilirubin (0.3-1.2) mg/dL AST (14-35) U/L ALT (10-49) U/L Total Protein (6.2-8.2) g/dL Albumin (3.8-4.9) g/dL Albumin/Globulin Ratio (1.60-3.17) Ratio 05/05/1402/26/24 02/26/24 Range/Units 07:26 07:26 11:57 RBC 3.52 L (4.40-5.60) X 10*6/uL Hgb 8.5 L (13.0-17.0) g/dL Hct 29.6 L (39.6-50.0) % MCH 24.1 L (27.0-32.0) pg MCHC 28.7 L (32.0-37.0) g/dL RDW 18.8 H (11.5-14.5) % MPV 12.3 H (9.5-12.2) FL Lymphocytes # 0.78 L (0.90-5.00) X 10*3/uL Creatinine 0.5 L (0.6-1.5) mg/dL BUN/Creatinine Ratio 30.00 H (12.00-20.00) Ratio Glucose 171 H (70-110) mg/dL POC Glucose (mg/dL) 111 H (70-110) mg/dL Total Bilirubin <0.2 L (0.3-1.2) mg/dL AST 52 H (14-35) U/L ALT 55 H (10-49) U/L Total Protein 5.6 L (6.2-8.2) g/dL Albumin 2.5 L (3.8-4.9) g/dL Albumin/Globulin Ratio 0.81 L (1.60-3.17) Ratio Microbiology - Last 24 Hours (Table) 02/24/24 22:39 Gram Stain - Preliminary Sputum Sputum Culture - Preliminary Gram Neg Bacilli Assessment and Plan (1) Cellulitis, neck Status: Acute Code(s): L03.221 - CELLULITIS OF NECK SNOMED Code(s): 10503484 (2) Pneumonia Status: Acute Code(s): J18.9 - PNEUMONIA, UNSPECIFIED ORGANISM SNOMED Code(s): 856663494 Plan: 1patient presented to hospital with generalized weakness did have mild elevated white count no complaining of mild cough with sputum production and also noted to have some purulent secretion around the trach site but no significant cellulitis with a sputum culture growing gram-negative bacilli 2-penicillin allergy that will limit the number of antibiotics safe to use 3-we will repeat chest x-ray PA and lateral and check inflammatory markers 4-we will add cefepime 2 g every 8 hours while waiting for the culture to finalize Multiple family members at bedside questions were answered We will follow on clinical condition and cultures to further adjust medication if needed Thank you for this consultation we will follow the patient along with you Dictation was produced using [employer] dictation software. please excuse any grammatical, word or spelling errors. Time with Patient: Greater than 30
--- NOTE | 2024-02-27 05:44 | P.PN ---
Subjective Progress Note Date: 02/26/24 This is a pleasant 83-year-old patient, follows with Dr. Castro. 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 At [facility]. Patient been followed by Dr. Harlan Burns oncologist and radiation oncologist Dr. Calvin Mohan. Patient lives with his . Does use a walker. About a week ago at [facility] patient had a PEG tube placed and tracheostomy tube placed. Patient's sugars have been uncontrolled for 6 some time. Patient now brought in for increasing confusion. And Accu-Cheks. Uncontrolled. At the baseline normally has a bowel movement once or twice a week. Does have intermittent cough. Not able to clear up his sputum well. I was informed that the PET scan done outpatient only showed lymph nodes in the neck. Lighting up Patient is accompanied by his , daughter and son in the room. Patient himself is able to answer simple questions. February 3: Patient was a bit delirious agitated around 2:00 in the morning. Will increase patient Seroquel to 37.5 mg. Patient's PEG tube basis come loose. Surgery consulted. Tolerating bolus feeding. Sodium started to come down. Still has some episodes of slight confusion. Since pain is well-controlled will cut back dose of Neurontin to twice daily from 3 times daily. Also [place] be changed from [place] 10 to [place] 5 every 6 as needed. This was discussed with the son at the bedside. Patient is not been complaining of any pain 02/22. Patient seen and examined. Patient sitting upright in the chair. Getting tube feeding. 02/23. Patient seen and examined. Patient having increased secretion from the trach site, also complaining of pain in the neck at the trach site. Denies any shortness of breath. Complaining of insomnia as well 02/25/2024 Patient seen and evaluated in follow-up currently sitting up in the chair with son at the bedside. Patient did have a sputum culture and recommending a swab around the trachea site as there is thick green drainage surrounding. Dressing was changed and will monitor closely. Patient is scheduled for mapping with radiation oncology today which is currently pending. Patient is maintained on tube feedings with Glucerna with dietary following and blood sugars have been well-controlled on current regimen. Will continue with sliding scale along with long-acting. Follow-up on repeat labs in the a.m. and replace electrolytes per protocol. Son at the bedside reports patient also will be going to [facility] for strength mobility on discharge. Patient is afebrile denies chest pain or worsening shortness of breath. 02/26/2024 Patient is seen in follow-up currently sitting up in bed with no acute overnight issues. Patient having increased copious secretions noted around the trachea that persists and will start antibiotics, cultures were obtained and pending and sputum cultures preliminary showing gram-negative bacilli. Will consult infectious disease and appreciate input and recommendations. Will also consult pulmonary. Patient is currently afebrile and denies any worsening shortness of breath. Patient is maintained on trach collar and did undergo mapping with radiation. Patient family is awaiting to speak with oncology regarding dana atment plan moving forward. PT/OT following as well as patient will need rehab for some strength and mobility. Dietary following as well and patient is maintained on bolus feeds of tube feeding. Continue monitoring Accu-Cheks before meals and at bedtime. REVIEW OF SYSTEMS: CONSTITUTIONAL: No fever, no malaise,. CARDIOVASCULAR: No chest pain, no palpitations, no syncope. PULMONARY: As mentioned above GASTROINTESTINAL: No diarrhea, no nausea, no vomiting, no abdominal pain. NEUROLOGICAL: No headaches, no weakness, PHYSICAL EXAMINATION: GENERAL: The patient is alert and oriented x3, Chronically ill looking, trach seen, thin built, elderly appearing HEENT: Pupils are round and equally reacting to light. EOMI. No scleral icterus. No conjunctival pallor. Normocephalic, atraumatic. No pharyngeal erythema. No thyromegaly. Thick greenish copious secretions noted around the tracheostomy CARDIOVASCULAR: S1 and S2 present. No murmurs, rubs, or gallops. PULMONARY: Diminished breath sounds bilaterally with some upper bronchial congestion and faint crackles noted at the bases. Diminished expiratory wheezing noted as well ABDOMEN: Soft, nontender, nondistended, normoactive bowel sounds. No palpable organomegaly. PEG tube seen MUSCULOSKELETAL: No joint swelling or deformity. EXTREMITIES: No cyanosis, clubbing, or pedal edema. NEUROLOGICAL: Gross neurological examination did not reveal any focal deficits. Diffusely weak SKIN: No rashes. Assessment: -Acute delirium secondary to metabolic encephalopathy from hyperglycemia and electrolyte abnormalities including hypernatremia, improved -Purulent copious secretions noted around the tracheostomy, concerns for possible surrounding cellulitis, present on admission -Diabetes mellitus type 2, uncontrolled with hyperglycemia -Hypernatremia, severe. 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 -GI prophylaxis -DVT prophylaxis -Full code Plan: Patient is continued on tube feedings with Glucerna with dietary following making adjustments to feedings as needed. Continue with bolus feeds Continue monitoring Accu-Cheks before meals and at bedtime and will continue with sliding scale along with long-acting and adjust as needed Patient continues to have thick copious secretions noted around the tracheostomy with concerns of infection and/or possible cellulitis around the site. Culture was obtained and will consult infectious disease and appreciate input and recommendations. Initiate empiric antibiotics. Sputum culture preliminary showing gram-negative bacilli Consult pulmonary and appreciate input recommendations regarding tracheostomy and hypoxia Encouraged aspiration precautions with head of the bed elevated and patient sitting up frequently PT/OT therapy to evaluate as family reports patient with significant weakness will require ECF on discharge for continued PT/OT therapy and strength and mobility Radiation oncology following and patient is status post mapping to initiate radiation treatments. Patient will follow with Dr. Burns outpatient. Family concerned with overall treatment plan and arrangements being made to discuss with oncology tomorrow morning Will follow-up with repeat labs and replace electrolytes per protocol, monitor sodium level Will discuss with case management/social work regarding discharge planning Due to multiple complex medical issues, prognosis is guarded The impression and plan of care has been dictated by Lisa Watson, Nurse Practitioner as directed. Dr. Kings MD I have performed a history and examination and MDM of this patient, discussed the same with the dictator, and agree with the dictator's assessment and plan as written ,documented as a scribe. Based on total visit time, I have performed more than 50% of the visit. Objective - Vital Signs Vital signs: Vital Signs Temp 98.1 F 02/26/24 07:11 Pulse 88 02/26/24 07:11 Resp 20 02/26/24 07:11 BP 134/54 02/26/24 07:11 Pulse Ox 96 02/26/24 07:11 FiO2 28 02/25/24 09:01 Intake & Output 02/25/24 02/26/24 02/26/24 18:59 06:59 18:59 Intake Total 583 Output Total 200 200 Balance 583 -200 -200 Weight 77.5 kg Intake: Tube Feeding 583 Output: Urine 200 200 Other: Voiding Method Urinal Urinal # Voids 1 # Bowel Movements 1 - Labs CBC & Chem 7: 02/26/24 07:26 02/26/24 07:26 Labs: Abnormal Lab Results - Last 24 Hours (Table) 02/25/24 02/25/24 02/25/24 Range/Units 06:40 10:54 17:03 BUN/Creatinine Ratio 26.17 H (12.00-20.00) Ratio Glucose 182 H (70-110) mg/dL POC Glucose (mg/dL) 132 H 116 H (70-110) mg/dL AST 43 H (14-35) U/L ALT 55 H (10-49) U/L Albumin 2.7 L (3.8-4.9) g/dL Globulin 3.6 H (1.6-3.3) g/dL Albumin/Globulin Ratio 0.75 L (1.60-3.17) Ratio 02/25/24 02/26/24 Range/Units 20:27 07:10 BUN/Creatinine Ratio (12.00-20.00) Ratio Glucose (70-110) mg/dL POC Glucose (mg/dL) 163 H 155 H (70-110) mg/dL AST (14-35) U/L ALT (10-49) U/L Albumin (3.8-4.9) g/dL Globulin (1.6-3.3) g/dL Albumin/Globulin Ratio (1.60-3.17) Ratio Microbiology - Last 24 Hours (Table) 02/24/24 22:39 Gram Stain - Preliminary Sputum
[2024-02-27 07:23] LABS: Glucose,Whole Blood 175 mg/dL (70-110)
--- NOTE | 2024-02-27 09:55 | XR ---
EXAMINATION TYPE: XR chest 2V DATE OF EXAM: 02/27/2024 COMPARISON: 02/20/2024 TECHNIQUE: PA and lateral views submitted. HISTORY: Follow-up pneumonia FINDINGS: The lungs are clear and there is no pneumothorax, pleural effusion, or focal pneumonia. Heart size normal and no overt failure. Osseous structures demonstrate hypertrophic and degenerative changes of the spine. Hyperinflation suggests COPD. Tracheostomy tube noted. Hypertrophic and degenerative freitas e of the spine. IMPRESSION: 1. No acute process.
[2024-02-27 10:55] LABS: Basophils # (A) 0.02 X 10*3/uL (0.00-0.10); Basophils % (A) 0.3 %; Eosinophils % (A) 1.3 %; HCT 33.6 % (39.6-50.0); HGB 9.6 g/dL (13.0-17.0); Lymphocytes # (A) 0.79 X 10*3/uL (0.90-5.00); MCH 24.1 pg (27.0-32.0); MCHC 28.6 g/dL (32.0-37.0); MCV 84.4 FL (80.0-97.0); Monocytes # (A) 0.93 X 10*3/uL (0.20-1.00); Monocytes % (A) 11.8 %; NRBC Per 100 WBC 0 X 10*3/uL (0.00-0.01); Neutrophils % (A) 75.8 %; Platelet Count 255 X 10*3/uL (140-440); RBC 3.98 X 10*6/uL (4.40-5.60); RDW 18.9 % (11.5-14.5)
[2024-02-27 11:19] LABS: ALT 56 U/L (10-49); AST 52 U/L (14-35); Albumin 2.5 g/dL (3.8-4.9); Albumin/Globulin Ratio 0.76 Ratio (1.60-3.17); Alkaline Phosphatase 101 U/L (41-126); Blood Urea Nitrogen 14.9 mg/dL (9.0-27.0); Calcium 9.2 mg/dL (8.7-10.3); Carbon Dioxide 25.3 mmol/L (21.6-31.8); Chloride 104 mmol/L (96-109); Globulin 3.3 g/dL (1.6-3.3); Glucose 166 mg/dL (70-110); Sodium 140 mmol/L (135-145); Total Bilirubin <0.2 mg/dL (0.3-1.2); Total Protein 5.8 g/dL (6.2-8.2)
[2024-02-27 12:04] LABS: Glucose,Whole Blood 194 mg/dL (70-110)
--- NOTE | 2024-02-27 12:08 | P.PN ---
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 Based on these findings he had been sent to ENT at [facility] in [place] and had undergone tracheostomy tube insertion and PEG tube placement. He is following here now with Dr. Niko Wnag and Dr. Mohan for chemo and radiation to start soon. He presented here to the emergency room on 02/20/2024 with vague symptoms of generalized weakness, hallucinations, O2 saturations in the 80s. He was found to have diabetes mellitus with uncontrolled hyperglycemia, hypernatremia, metabolic encephalopathy. We are consulted today 02/26/2024 after the patient developed some blood from his tracheostomy tube after being suctioned. His sputum culture is positive for Pseudomonas aeruginosa. White count 6.4. Hemoglobin 8.5. Platelets 227. Sodium 139. Potassium 4.0. BUN 15. Creatinine 0.5. Glucose 171. AST 52. ALT 55. He has been initiated on cefepime and vancomycin. Lovenox for DVT prophylaxis. He is on Levemir and NovoLog for glucose control. No bleeding noted from the tracheal tube now. No hemoptysis. Admission chest x-ray revealed no consolidation. No pneumothorax. Midline tracheostomy tube in position. He is maintaining good O2 saturations up to 99% on 28% FiO2 via trach collar. Afebrile. Hemodynamically stable. The patient is seen today February 27, 2024 in follow-up on the regular medical floor. He is currently sitting up in a chair. Awake and alert in no acute distress. Denies any worsening shortness of breath, cough or congestion. No further bleeding from his tracheostomy tube. Follow-up chest x-ray shows no acute pulmonary process. He is maintaining good O2 saturations in the mid to upper 90s on 20% FiO2 via trach collar. White count 7.9. Hemoglobin 9.6. Platelets 255. Sodium 140. Potassium 4.0. Bicarb 25. BUN 15. Creatinine 0.5. Glucose 166. Procalcitonin 0.13. He is continued on cefepime. Remains on Lovenox for DVT prophylaxis. Objective - Vital Signs Vital signs: Vital Signs Temp 97.9 F 02/27/24 07:50 Pulse 106 H 02/27/24 07:50 Resp 24 02/27/24 07:50 BP 133/70 02/27/24 07:50 Pulse Ox 96 02/27/24 07:50 FiO2 28 02/27/24 10:04 Intake & Output 02/26/24 02/27/24 02/27/24 18:59 06:59 18:59 Intake Total 999 Output Total 1000 200 Balance -1 -200 Weight 77.5 kg Intake: Oral 0 Tube Feeding 999 Output: Urine 1000 200 Other: Voiding Method Urinal Urinal # Voids 3 - Exam GENERAL EXAM: Alert, pleasant 83-year-old male, on 28% FiO2 via trach collar, up in a chair, comfortable in no apparent distress. HEAD: Normocephalic. EYES: Normal reaction of pupils, equal size. NOSE: Clear with pink turbinates. THROAT: No erythema or exudates. NECK: Tracheostomy tube secured in place. No active bleeding currently. Elmer ateral masses, no JVD. CHEST: No chest wall deformity. LUNGS: Equal air entry with no crackles, wheeze, rhonchi or dullness. CVS: S1 and S2 normal with no audible murmur, regular rhythm. ABDOMEN: PEG tube exit site clean and dry. No hepatosplenomegaly, normal bowel sounds, no guarding or rigidity. SPINE: No scoliosis or deformity SKIN: No rashes CENTRAL NERVOUS SYSTEM: No focal deficits, tone is normal in all 4 extremities. EXTREMITIES: There is no peripheral edema. No clubbing, no cyanosis. Peripheral pulses are intact. - Labs CBC & Chem 7: 02/27/24 07:14 02/27/24 07:14 Labs: Abnormal Lab Results - Last 24 Hours (Table) 02/26/24 02/26/24 02/26/24 Range/Units 11:57 17:10 20:34 RBC (4.40-5.60) X 10*6/uL Hgb (13.0-17.0) g/dL Hct (39.6-50.0) % MCH (27.0-32.0) pg MCHC (32.0-37.0) g/dL RDW (11.5-14.5) % Immature Gran # (0.00-0.04) X 10*3/uL Lymphocytes # (0.90-5.00) X 10*3/uL Creatinine (0.6-1.5) mg/dL BUN/Creatinine Ratio (12.00-20.00) Ratio Glucose (70-110) mg/dL POC Glucose (mg/dL) 111 H 196 H 179 H (70-110) mg/dL Total Bilirubin (0.3-1.2) mg/dL AST (14-35) U/L ALT (10-49) U/L C-Reactive Protein (0.00-0.80) mg/dL Total Protein (6.2-8.2) g/dL Albumin (3.8-4.9) g/dL Albumin/Globulin Ratio (1.60-3.17) Ratio Procalcitonin (0.02-0.09) ng/mL 02/27/24 02/27/24 02/27/24 Range/Units 07:14 07:14 07:14 RBC 3.98 L (4.40-5.60) X 10*6/uL Hgb 9.6 L (13.0-17.0) g/dL Hct 33.6 L (39.6-50.0) % MCH 24.1 L (27.0-32.0) pg MCHC 28.6 L (32.0-37.0) g/dL RDW 18.9 H (11.5-14.5) % Immature Gran # 0.06 H (0.00-0.04) X 10*3/uL Lymphocytes # 0.79 L (0.90-5.00) X 10*3/uL Creatinine 0.5 L (0.6-1.5) mg/dL BUN/Creatinine Ratio 29.80 H (12.00-20.00) Ratio Glucose 166 H (70-110) mg/dL POC Glucose (mg/dL) (70-110) mg/dL Total Bilirubin <0.2 L (0.3-1.2) mg/dL AST 52 H (14-35) U/L ALT 56 H (10-49) U/L C-Reactive Protein 10.30 H (0.00-0.80) mg/dL Total Protein 5.8 L (6.2-8.2) g/dL Albumin 2.5 L (3.8-4.9) g/dL Albumin/Globulin Ratio 0.76 L (1.60-3.17) Ratio Procalcitonin 0.13 H (0.02-0.09) ng/mL 02/27/24 Range/Units 07:22 RBC (4.40-5.60) X 10*6/uL Hgb (13.0-17.0) g/dL Hct (39.6-50.0) % MCH (27.0-32.0) pg MCHC (32.0-37.0) g/dL RDW (11.5-14.5) % Immature Gran # (0.00-0.04) X 10*3/uL Lymphocytes # (0.90-5.00) X 10*3/uL Creatinine (0.6-1.5) mg/dL BUN/Creatinine Ratio (12.00-20.00) Ratio Glucose (70-110) mg/dL POC Glucose (mg/dL) 175 H (70-110) mg/dL Total Bilirubin (0.3-1.2) mg/dL AST (14-35) U/L ALT (10-49) U/L C-Reactive Protein (0.00-0.80) mg/dL Total Protein (6.2-8.2) g/dL Albumin (3.8-4.9) g/dL Albumin/Globulin Ratio (1.60-3.17) Ratio Procalcitonin (0.02-0.09) ng/mL Microbiology - Last 24 Hours (Table) 02/24/24 22:39 Gram Stain - Final Sputum Sputum Culture - Final Pseudomonas aeruginosa 02/25/24 11:15 Gram Stain - Preliminary Neck Wound Culture - Preliminary Gram Neg Bacilli Assessment and Plan Assessment: Bleeding from tracheostomy tube post suctioning, stabilized and no active bleeding 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) with recent tracheostomy tube placement approximately 2 weeks ago at [facility] PEG tube placement secondary to above, tolerating tube feedings Diabetes mellitus with labile glucose levels Hypertension Hyperlipidemia Osteoarthritis Former smoker Plan: The patient was seen and evaluated Chest x-ray, labs and medications reviewed Chest x-ray reveals no acute pulmonary process Tracheostomy without any bleeding noted Tolerating tube feedings Plan is for home with home care I have personally seen and examined the patient, performed the documentation and the assessment and plan as written. Number of minutes spent on the visit: 10.
[2024-02-27 14:59] LABS: Glucose,Whole Blood 141 mg/dL (70-110)
[2024-02-27 18:45] LABS: Glucose,Whole Blood 141 mg/dL (70-110)
[2024-02-27 22:52] LABS: Glucose,Whole Blood 135 mg/dL (70-110)
--- NOTE | 2024-02-28 05:20 | P.PN ---
Subjective Progress Note Date: 02/27/24 This is a pleasant 83-year-old patient, follows with Dr. Castro. 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 At [facility]. Patient been followed by Dr. Harlan Burns oncologist and radiation oncologist Dr. Calvin Mohan. Patient lives with his . Does use a walker. About a week ago at [facility] patient had a PEG tube placed and tracheostomy tube placed. Patient's sugars have been uncontrolled for 6 some time. Patient now brought in for increasing confusion. And Accu-Cheks. Uncontrolled. At the baseline normally has a bowel movement once or twice a week. Does have intermittent cough. Not able to clear up his sputum well. I was informed that the PET scan done outpatient only showed lymph nodes in the neck. Lighting up Patient is accompanied by his , daughter and son in the room. Patient himself is able to answer simple questions. February 3: Patient was a bit delirious agitated around 2:00 in the morning. Will increase patient Seroquel to 37.5 mg. Patient's PEG tube basis come loose. Surgery consulted. Tolerating bolus feeding. Sodium started to come down. Still has some episodes of slight confusion. Since pain is well-controlled will cut back dose of Neurontin to twice daily from 3 times daily. Also Orange be changed from Orange 10 to Orange 5 every 6 as needed. This was discussed with the son at the bedside. Patient is not been complaining of any pain 02/22. Patient seen and examined. Patient sitting upright in the chair. Getting tube feeding. 02/23. Patient seen and examined. Patient having increased secretion from the trach site, also complaining of pain in the neck at the trach site. Denies any shortness of breath. Complaining of insomnia as well 02/25/2024 Patient seen and evaluated in follow-up currently sitting up in the chair with son at the bedside. Patient did have a sputum culture and recommending a swab around the trachea site as there is thick green drainage surrounding. Dressing was changed and will monitor closely. Patient is scheduled for mapping with radiation oncology today which is currently pending. Patient is maintained on tube feedings with Glucerna with dietary following and blood sugars have been well-controlled on current regimen. Will continue with sliding scale along with long-acting. Follow-up on repeat labs in the a.m. and replace electrolytes per protocol. Son at the bedside reports patient also will be going to [facility] for strength mobility on discharge. Patient is afebrile denies chest pain or worsening shortness of breath. 02/26/2024 Patient is seen in follow-up currently sitting up in bed with no acute overnight issues. Patient having increased copious secretions noted around the trachea that persists and will start antibiotics, cultures were obtained and pending and sputum cultures preliminary showing gram-negative bacilli. Will consult infectious disease and appreciate input and recommendations. Will also consult pulmonary. Patient is currently afebrile and denies any worsening shortness of breath. Patient is maintained on trach collar and did undergo mapping with radiation. Patient family is awaiting to speak with oncology regarding dana atment plan moving forward. PT/OT following as well as patient will need rehab for some strength and mobility. Dietary following as well and patient is maintained on bolus feeds of tube feeding. Continue monitoring Accu-Cheks before meals and at bedtime. 02/27/2024 Patient is seen in follow-up today after having an extended conversation with oncology regarding treatment plan. Family is concerned that if he does go to rehab that he will not initiate treatment and overall care will be delayed. Family now working on possible private pay options or in the house home care and social work following working on providing resources. Patient's sputum culture showing Pseudomonas and cultures of the wound around the tracheostomy finalized showing Pseudomonas along with Klebsiella oxytoca and infectious diseases following. Patient is maintained on meropenem and will be adjusted per ID. Nuris ient is afebrile with no worsening shortness of breath. Patient maintained on bolus feeds and reports he feels full although according to dietary, caloric intake is insufficient. Blood sugars are well-controlled on current regimen and will continue. Per one of the sons at the bedside, patient will need testing strips along with needles and additional insulin for discharge. REVIEW OF SYSTEMS: CONSTITUTIONAL: No fever, no malaise CARDIOVASCULAR: No chest pain, no palpitations, no syncope. PULMONARY: As mentioned above GASTROINTESTINAL: No diarrhea, no nausea, no vomiting, no abdominal pain. Reports to feeling full NEUROLOGICAL: No headaches, no weakness PHYSICAL EXAMINATION: GENERAL: The patient is alert and oriented x3, Chronically ill looking, trach seen, thin built, elderly appearing HEENT: Pupils are round and equally reacting to light. EOMI. No scleral icterus. No conjunctival pallor. Normocephalic, atraumatic. No pharyngeal erythema. No thyromegaly. Thick greenish copious secretions noted around the tracheostomy CARDIOVASCULAR: S1 and S2 present. No murmurs, rubs, or gallops. PULMONARY: Diminished breath sounds bilaterally with some upper bronchial congestion and faint crackles noted at the bases. Diminished expiratory wheezing noted as well ABDOMEN: Soft, nontender, nondistended, normoactive bowel sounds. No palpable organomegaly. PEG tube seen MUSCULOSKELETAL: No joint swelling or deformity. EXTREMITIES: No cyanosis, clubbing, or pedal edema. NEUROLOGICAL: Gross neurological examination did not reveal any focal deficits. Diffusely weak SKIN: No rashes. Assessment: -Acute delirium secondary to metabolic encephalopathy from hyperglycemia and electrolyte abnormalities including hypernatremia, improved -Purulent copious secretions noted around the tracheostomy, concerns for possible surrounding cellulitis, present on admission -Diabetes mellitus type 2, uncontrolled with hyperglycemia -Hypernatremia, severe. 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 Continue with bolus feeds. Dietary to evaluate this patient feels he is receiving too much formula and feels full. Discussed with nursing staff about monitoring residuals Continue monitoring Accu-Cheks before meals and at bedtime and will continue with sliding scale along with long-acting and adjust as needed Patient continued to have thick copious secretions noted around the tracheostomy with concerns of infection and/or possible cellulitis around the site. Culture was obtained and infectious disease following and has placed the patient on cefepime. Cultures finalized showing Pseudomonas aeruginosa along with Klebsiella oxytoca Pulmonary has evaluated the patient and stable at this time. Encouraged aspiration precautions with head of the bed elevated and patient sitting up frequently PT/OT therapy to evaluate as family reports patient with significant weakness and initially wanting ECF for continued PT/OT therapy although family is now concerned because that would delay his oncological care. Family is eager to initiate chemo/radiation Radiation oncology following and patient is status post mapping to initiate radiation treatments. Patient will follow with Dr. Burns outpatient. Family had a lengthy discussion with oncology. Will discuss with case management/social work regarding discharge planning as family reports will be requiring additional home care resources Due to multiple complex medical issues, prognosis is guarded The impression and plan of care has been dictated by Lisa Watson, Nurse Practitioner as directed. Dr. Kings MD I have performed a history and examination and MDM of this patient, discussed the same with the dictator, and agree with the dictator's assessment and plan as written ,documented as a scribe. Based on total visit time, I have performed more than 50% of the visit. Objective - Vital Signs Vital signs: Vital Signs Temp 97.9 F 02/27/24 07:50 Pulse 106 H 02/27/24 07:50 Resp 24 02/27/24 07:50 BP 133/70 02/27/24 07:50 Pulse Ox 96 02/27/24 07:50 FiO2 28 02/25/24 09:01 Intake & Output 02/26/24 02/27/24 02/27/24 18:59 06:59 18:59 Intake Total 999 Output Total 1000 200 Balance -1 -200 Weight 77.5 kg Intake: Oral 0 Tube Feeding 999 Output: Urine 1000 200 Other: Voiding Method Urinal Urinal # Voids 3 - Labs CBC & Chem 7: 02/27/24 07:14 02/27/24 07:14 Labs: Abnormal Lab Results - Last 24 Hours (Table) 02/26/24 02/26/24 02/26/24 Range/Units 07:26 07:26 11:57 RBC 3.52 L (4.40-5.60) X 10*6/uL Hgb 8.5 L (13.0-17.0) g/dL Hct 29.6 L (39.6-50.0) % MCH 24.1 L (27.0-32.0) pg MCHC 28.7 L (32.0-37.0) g/dL RDW 18.8 H (11.5-14.5) % MPV 12.3 H (9.5-12.2) FL Lymphocytes # 0.78 L (0.90-5.00) X 10*3/uL Creatinine 0.5 L (0.6-1.5) mg/dL BUN/Creatinine Ratio 30.00 H (12.00-20.00) Ratio Glucose 171 H (70-110) mg/dL POC Glucose (mg/dL) 111 H (70-110) mg/dL Total Bilirubin <0.2 L (0.3-1.2) mg/dL AST 52 H (14-35) U/L ALT 55 H (10-49) U/L Total Protein 5.6 L (6.2-8.2) g/dL Albumin 2.5 L (3.8-4.9) g/dL Albumin/Globulin Ratio 0.81 L (1.60-3.17) Ratio 02/26/24 02/26/24 02/27/24 Range/Units 17:10 20:34 07:22 RBC (4.40-5.60) X 10*6/uL Hgb (13.0-17.0) g/dL Hct (39.6-50.0) % MCH (27.0-32.0) pg MCHC (32.0-37.0) g/dL RDW (11.5-14.5) % MPV (9.5-12.2) FL Lymphocytes # (0.90-5.00) X 10*3/uL Creatinine (0.6-1.5) mg/dL BUN/Creatinine Ratio (12.00-20.00) Ratio Glucose (70-110) mg/dL POC Glucose (mg/dL) 196 H 179 H 175 H (70-110) mg/dL Total Bilirubin (0.3-1.2) mg/dL AST (14-35) U/L ALT (10-49) U/L Total Protein (6.2-8.2) g/dL Albumin (3.8-4.9) g/dL Albumin/Globulin Ratio (1.60-3.17) Ratio Microbiology - Last 24 Hours (Table) 02/24/24 22:39 Gram Stain - Final Sputum Sputum Culture - Final Pseudomonas aeruginosa 02/25/24 11:15 Gram Stain - Preliminary Neck Wound Culture - Preliminary Gram Neg Bacilli
[2024-02-28 07:19] LABS: Glucose,Whole Blood 122 mg/dL (70-110)
[2024-02-28 12:10] LABS: Glucose,Whole Blood 183 mg/dL (70-110)
--- NOTE | 2024-02-28 12:44 | P.PN ---
Subjective Progress Note Date: 02/28/24 This is a pleasant 83-year-old male patient who had recently been diagnosed with squamous cell carcinoma of the neck and PET scan revealed a left hypopharynx mass with metastatic disease to the bilateral neck extending down to level 5B bilaterally. Based on these findings he had been sent to ENT at [facility] in [place] and had undergone tracheostomy tube insertion and PEG tube placement. He is following here now with Dr. Niko Wang and Dr. Mohan for chemo and radiation to start soon. He presented here to the emergency room on 02/20/2024 with vague symptoms of generalized weakness, hallucinations, O2 saturations in the 80s. He was found to have diabetes mellitus with uncontrolled hyperglycemia, hypernatremia, metabolic encephalopathy. We are consulted today 02/26/2024 after the patient developed some blood from his tracheostomy tube after being suctioned. His sputum culture is positive for Pseudomonas aeruginosa. White count 6.4. Hemoglobin 8.5. Platelets 227. Sodium 139. Potassium 4.0. BUN 15. Creatinine 0.5. Glucose 171. AST 52. ALT 55. He has been initiated on cefepime and vancomycin. Lovenox for DVT prophylaxis. He is on Levemir and NovoLog for glucose control. No bleeding noted from the tracheal tube now. No hemoptysis. Admission chest x-ray revealed no consolidation. No pneumothorax. Midline tracheostomy tube in position. He is maintaining good O2 saturations up to 99% on 28% FiO2 via trach collar. Afebrile. Hemodynamically stable. The patient is seen today February 27, 2024 in follow-up on the regular medical floor. He is currently sitting up in a chair. Awake and alert in no acute distress. Denies any worsening shortness of breath, cough or congestion. No further bleeding from his tracheostomy tube. Follow-up chest x-ray shows no acute pulmonary process. He is maintaining good O2 saturations in the mid to upper 90s on 20% FiO2 via trach collar. White count 7.9. Hemoglobin 9.6. Platelets 255. Sodium 140. Potassium 4.0. Bicarb 25. BUN 15. Creatinine 0.5. Glucose 166. Procalcitonin 0.13. He is continued on cefepime. Remains on Lovenox for DVT prophylaxis. The patient is seen today February 28, 2024 in follow-up on the regular medical floor. He is awake and alert in no acute distress. No further blood from his tracheostomy tube. He is up in a chair. Denies any worsening shortness of breath, cough or congestion. Sputum culture was positive for Pseudomonas aeruginosa. Tracheostomy site culture was positive for Pseudomonas aeruginosa and Klebsiella oxytoca. Glucose 122. He remains on cefepime. Lovenox for DVT prophylaxis. Objective - Vital Signs Vital signs: Vital Signs Temp 99.1 F 02/28/24 12:09 Pulse 75 02/28/24 12:09 Resp 20 02/28/24 12:09 BP 119/66 02/28/24 12:09 Pulse Ox 99 02/28/24 12:09 FiO2 28 02/28/24 10:02 Intake & Output 02/27/24 02/28/24 02/28/24 18:59 06:59 18:59 Output Total 200 865 Balance -200 -865 Weight 78.1 kg Output: Urine 200 865 Other: Voiding Method Urinal Urinal Urinal # Voids 2 1 # Bowel Movements 1 1 - Exam GENERAL EXAM: Alert, 83-year-old male, on 28% FiO2 via trach collar, up in a chair, in no apparent distress. HEAD: Normocephalic. EYES: Normal reaction of pupils, equal size. NOSE: Clear with pink turbinates. THROAT: No erythema or exudates. NECK: Tracheostomy tube secured in place. No active bleeding currently. Bilateral masses, no JVD. CHEST: No chest wall deformity. LUNGS: Equal air entry with no crackles, wheeze, rhonchi or dullness. CVS: S1 and S2 normal with no audible murmur, regular rhythm. ABDOMEN: PEG tube exit site clean and dry. No hepatosplenomegaly, normal bowel sounds, no guarding or rigidity. SPINE: No scoliosis or deformity SKIN: No rashes CENTRAL NERVOUS SYSTEM: No focal deficits, tone is normal in all 4 extremities. EXTREMITIES: There is no peripheral edema. No clubbing, no cyanosis. Peripheral pulses are intact. - Labs CBC & Chem 7: 02/27/24 07:14 02/27/24 07:14 Labs: Abnormal Lab Results - Last 24 Hours (Table) 02/27/24 02/27/24 02/27/24 Range/Units 14:58 18:43 22:49 POC Glucose (mg/dL) 141 H 141 H 135 H (70-110) mg/dL 02/28/24 02/28/24 Range/Units 07:18 12:09 POC Glucose (mg/dL) 122 H 183 H (70-110) mg/dL Microbiology - Last 24 Hours (Table) 02/27/24 02:45 Nasal Screen MRSA/MSSA - Final Nasopharyngeal Swab 02/25/24 11:15 Gram Stain - Final Neck Wound Culture - Final Pseudomonas aeruginosa Klebsiella oxytoca 02/24/24 22:39 Gram Stain - Final Sputum Sputum Culture - Final Pseudomonas aeruginosa Assessment and Plan Assessment: Bleeding from tracheostomy tube post suctioning, stabilized and no active bleeding. Sputum culture positive for Pseudomonas aeruginosa. Neck wound culture positive for Pseudomonas aeruginosa and Klebsiella oxytoca. 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 Number of minutes spent on the visit: 10.
--- NOTE | 2024-02-28 13:40 | P.PN ---
Subjective Progress Note Date: 02/27/24 Principal diagnosis: Reason for follow-up is pneumonia and trach site cellulitis Patient is a 83-year-old male with a past medical history significant for diabetes mellitus hypertension hyperlipidemia osteoarthritis history of throat cancer diagnosed December 2023 in this patient who did have a recent tracheostomy done at outside facility about 2 weeks ago patient has been brought into the hospital for definitive control his blood sugar shortness of breath and fatigue noticed to have some erythema around the trach site and concerning for pneumonia. On today's evaluation her that is 02/27/2024, patient has been afebrile, patient is breathing comfortably and is currently on 5 L trach collar denies any chest pain or worsening cough no nausea vomiting abdominal pain or diarrhea Patient did have white count of 7.90, creatinine 0.5 sputum and trach site is growing Pseudomonas aeruginosa Objective - Vital Signs Vital signs: Vital Signs Temp 97.7 F 02/27/24 13:51 Pulse 80 02/27/24 13:51 Resp 16 02/27/24 13:51 BP 123/66 02/27/24 13:51 Pulse Ox 93 L 02/27/24 13:51 FiO2 28 02/27/24 10:04 Intake & Output 02/26/24 02/27/24 02/27/24 18:59 06:59 18:59 Intake Total 999 Output Total 1000 200 Balance -1 -200 Weight 77.5 kg Intake: Oral 0 Tube Feeding 999 Output: Urine 1000 200 Other: Voiding Method Urinal Urinal Urinal # Voids 3 - Exam GENERAL DESCRIPTION: An elderly male up in the chair in no distress RESPIRATORY SYSTEM: Unlabored breathing , coarse breath sounds bilaterally HEART: S1 S2 regular rate and rhythm , ABDOMEN: Soft , no tenderness EXTREMITIES: No edema feet - Labs CBC & Chem 7: 02/27/24 07:14 02/27/24 07:14 Labs: Abnormal Lab Results - Last 24 Hours (Table) 02/26/24 02/26/24 02/27/24 Range/Units 17:10 20:34 07:14 RBC (4.40-5.60) X 10*6/uL Hgb (13.0-17.0) g/dL Hct (39.6-50.0) % MCH (27.0-32.0) pg MCHC (32.0-37.0) g/dL RDW (11.5-14.5) % Immature Gran # (0.00-0.04) X 10*3/uL Lymphocytes # (0.90-5.00) X 10*3/uL Creatinine 0.5 L (0.6-1.5) mg/dL BUN/Creatinine Ratio 29.80 H (12.00-20.00) Ratio Glucose 166 H (70-110) mg/dL POC Glucose (mg/dL) 196 H 179 H (70-110) mg/dL Total Bilirubin <0.2 L (0.3-1.2) mg/dL AST 52 H (14-35) U/L ALT 56 H (10-49) U/L C-Reactive Protein 10.30 H (0.00-0.80) mg/dL Total Protein 5.8 L (6.2-8.2) g/dL Albumin 2.5 L (3.8-4.9) g/dL Albumin/Globulin Ratio 0.76 L (1.60-3.17) Ratio Procalcitonin (0.02-0.09) ng/mL 02/27/24 02/27/24 02/27/24 Range/Units 07:14 07:14 07:22 RBC 3.98 L (4.40-5.60) X 10*6/uL Hgb 9.6 L (13.0-17.0) g/dL Hct 33.6 L (39.6-50.0) % MCH 24.1 L (27.0-32.0) pg MCHC 28.6 L (32.0-37.0) g/dL RDW 18.9 H (11.5-14.5) % Immature Gran # 0.06 H (0.00-0.04) X 10*3/uL Lymphocytes # 0.79 L (0.90-5.00) X 10*3/uL Creatinine (0.6-1.5) mg/dL BUN/Creatinine Ratio (12.00-20.00) Ratio Glucose (70-110) mg/dL POC Glucose (mg/dL) 175 H (70-110) mg/dL Total Bilirubin (0.3-1.2) mg/dL AST (14-35) U/L ALT (10-49) U/L C-Reactive Protein (0.00-0.80) mg/dL Total Protein (6.2-8.2) g/dL Albumin (3.8-4.9) g/dL Albumin/Globulin Ratio (1.60-3.17) Ratio Procalcitonin 0.13 H (0.02-0.09) ng/mL 02/27/24 02/27/24 Range/Units 12:03 14:58 RBC (4.40-5.60) X 10*6/uL Hgb (13.0-17.0) g/dL Hct (39.6-50.0) % MCH (27.0-32.0) pg MCHC (32.0-37.0) g/dL RDW (11.5-14.5) % Immature Gran # (0.00-0.04) X 10*3/uL Lymphocytes # (0.90-5.00) X 10*3/uL Creatinine (0.6-1.5) mg/dL BUN/Creatinine Ratio (12.00-20.00) Ratio Glucose (70-110) mg/dL POC Glucose (mg/dL) 194 H 141 H (70-110) mg/dL Total Bilirubin (0.3-1.2) mg/dL AST (14-35) U/L ALT (10-49) U/L C-Reactive Protein (0.00-0.80) mg/dL Total Protein (6.2-8.2) g/dL Albumin (3.8-4.9) g/dL Albumin/Globulin Ratio (1.60-3.17) Ratio Procalcitonin (0.02-0.09) ng/mL Microbiology - Last 24 Hours (Table) 02/24/24 22:39 Gram Stain - Final Sputum Sputum Culture - Final Pseudomonas aeruginosa 02/25/24 11:15 Gram Stain - Preliminary Neck Wound Culture - Preliminary Gram Neg Bacilli Assessment and Plan (1) Pneumonia Current Visit: Yes Status: Acute Code(s): J18.9 - PNEUMONIA, UNSPECIFIED ORGANISM SNOMED Code(s): 458749358 (2) Cellulitis, neck Current Visit: Yes Status: Acute Code(s): L03.221 - CELLULITIS OF NECK SNOMED Code(s): 62010181 Plan: 1patient presented to hospital with generalized weakness did have mild elevated white count no complaining of mild cough with sputum production and also noted to have some purulent secretion around the trach site but no significant cellulitis with a sputum culture growing gram-negative bacilli 2-penicillin allergy that will limit the number of antibiotics safe to use 3-patient did have a procalcitonin 0.13, chest x-ray has been negative so far cultures currently growing Pseudomonas aeruginosa 4-patient to continue with the cefepime discontinue vancomycin Dictation was produced using [employer] dictation software. please excuse any grammatical, word or spelling errors. Time with Patient: Less than 30
--- NOTE | 2024-02-28 13:41 | P.PN ---
Subjective Progress Note Date: 02/28/24 Principal diagnosis: Reason for follow-up is pneumonia and trach site cellulitis Patient is a 83-year-old male with a past medical history significant for diabetes mellitus hypertension hyperlipidemia osteoarthritis history of throat cancer diagnosed December 2023 in this patient who did have a recent tracheostomy done at outside facility about 2 weeks ago patient has been brought into the hospital for definitive control his blood sugar shortness of breath and fatigue noticed to have some erythema around the trach site and concerning for pneumonia. On today's evaluation her that is 02/28/2024,the patient denies any fever or any chills, patient is breathing comfortably on 5 L trach collar oxygen, the patient denies chest pain shortness of breath and no cough is decreased in intensity no nausea vomiting abdominal pain or any diarrhea. Labs pending from today sputum culture positive for Pseudomonas Culture positive for Pseudomonas and Klebsiella Objective - Vital Signs Vital signs: Vital Signs Temp 98.6 F 02/28/24 07:17 Pulse 87 02/28/24 07:17 Resp 22 02/28/24 07:17 BP 131/68 02/28/24 07:17 Pulse Ox 98 02/28/24 11:12 FiO2 28 02/28/24 10:02 Intake & Output 02/27/24 02/28/24 02/28/24 18:59 06:59 18:59 Output Total 200 865 Balance -200 -865 Weight 78.1 kg Output: Urine 200 865 Other: Voiding Method Urinal Urinal Urinal # Voids 2 1 # Bowel Movements 1 1 - Exam GENERAL DESCRIPTION: An elderly male up in the chair in no distress RESPIRATORY SYSTEM: Unlabored breathing , coarse breath sounds bilaterally HEART: S1 S2 regular rate and rhythm , ABDOMEN: Soft , no tenderness EXTREMITIES: No edema feet - Labs CBC & Chem 7: 02/27/24 07:14 02/27/24 07:14 Labs: Abnormal Lab Results - Last 24 Hours (Table) 02/27/24 02/27/24 02/27/24 Range/Units 07:14 12:03 14:58 Creatinine 0.5 L (0.6-1.5) mg/dL BUN/Creatinine Ratio 29.80 H (12.00-20.00) Ratio Glucose 166 H (70-110) mg/dL POC Glucose (mg/dL) 194 H 141 H (70-110) mg/dL Total Bilirubin <0.2 L (0.3-1.2) mg/dL AST 52 H (14-35) U/L ALT 56 H (10-49) U/L C-Reactive Protein 10.30 H (0.00-0.80) mg/dL Total Protein 5.8 L (6.2-8.2) g/dL Albumin 2.5 L (3.8-4.9) g/dL Albumin/Globulin Ratio 0.76 L (1.60-3.17) Ratio 02/27/24 02/27/24 02/28/24 Range/Units 18:43 22:49 07:18 Creatinine (0.6-1.5) mg/dL BUN/Creatinine Ratio (12.00-20.00) Ratio Glucose (70-110) mg/dL POC Glucose (mg/dL) 141 H 135 H 122 H (70-110) mg/dL Total Bilirubin (0.3-1.2) mg/dL AST (14-35) U/L ALT (10-49) U/L C-Reactive Protein (0.00-0.80) mg/dL Total Protein (6.2-8.2) g/dL Albumin (3.8-4.9) g/dL Albumin/Globulin Ratio (1.60-3.17) Ratio Microbiology - Last 24 Hours (Table) 02/27/24 02:45 Nasal Screen MRSA/MSSA - Final Nasopharyngeal Swab 02/25/24 11:15 Gram Stain - Final Neck Wound Culture - Final Pseudomonas aeruginosa Klebsiella oxytoca 02/24/24 22:39 Gram Stain - Final Sputum Sputum Culture - Final Pseudomonas aeruginosa Assessment and Plan (1) Tracheobronchitis Current Visit: Yes Status: Acute Code(s): J40 - BRONCHITIS, NOT SPECIFIED ACUTE OR CHRONIC SNOMED Code(s): 84272411 (2) Pseudomonas aeruginosa infection Current Visit: Yes Status: Acute Code(s): A49.8 - OTHER BACTERIAL INFECTIONS OF UNSPECIFIED SITE SNOMED Code(s): 91570317 (3) Cellulitis, neck Current Visit: Yes Status: Acute Code(s): L03.221 - CELLULITIS OF NECK SNOMED Code(s): 37397636 Plan: 1patient presented to hospital with generalized weakness did have mild elevated white count no complaining of mild cough with sputum production and also noted to have some purulent secretion around the trach site but no significant cellulitis with a sputum culture growing gram-negative bacilli 2-penicillin allergy that will limit the number of antibiotics safe to use 3-patient did have a procalcitonin 0.13, chest x-ray has been negative so far cultures currently growing Pseudomonas aeruginosa 4-patient seem to have shown some clinical improvement we will plan on finish therapy with oral Cipro which seems to be interacting with Seroquel as per discussion with the admitting team he will be holding his Seroquel while on oral Cipro family at bedside multiple questions answered Dictation was produced using [employer] dictation software. please excuse any grammatical, word or spelling errors. Time with Patient: Less than 30
--- NOTE | 2024-02-28 16:21 | P.PN ---
Subjective Progress Note Date: 02/27/24 The patient is seen today along with other family members including his spouse and son. He is tolerating tube feeds well. There is generalized weakness, but some slow improvement with ongoing physical therapy. He is continuing to use a trach mask. No obvious bleeding Objective - Vital Signs Vital signs: Vital Signs Temp 99.1 F 02/28/24 12:09 Pulse 75 02/28/24 12:09 Resp 20 02/28/24 12:09 BP 119/66 02/28/24 12:09 Pulse Ox 99 02/28/24 12:09 FiO2 28 02/28/24 10:02 Intake & Output 02/27/24 02/28/24 02/28/24 18:59 06:59 18:59 Output Total 200 865 Balance -200 -865 Weight 78.1 kg Output: Urine 200 865 Other: Voiding Method Urinal Urinal Urinal # Voids 2 1 # Bowel Movements 1 1 - Constitutional General appearance: Present: no acute distress - EENT Eyes: Present: EOMI ENT: Present: hearing grossly normal, normal oropharynx - Neck Details: Tracheostomy in situ, with trach mask - Respiratory Respiratory: bilateral: CTA - Cardiovascular Rhythm: regular Heart sounds: normal: S1, S2 - Gastrointestinal Gastrointestinal Comment(s): PEG tube in situ General gastrointestinal: Present: soft - Integumentary Integumentary: Present: normal - Neurologic Neurologic: Present: CNII-XII intact - Musculoskeletal Musculoskeletal: Present: generalized weakness, strength equal bilaterally - Psychiatric Psychiatric: Present: appropriate affect - Labs CBC & Chem 7: 02/27/24 07:14 02/27/24 07:14 Labs: Abnormal Lab Results - Last 24 Hours (Table) 02/27/24 02/27/24 02/28/24 Range/Units 18:43 22:49 07:18 POC Glucose (mg/dL) 141 H 135 H 122 H (70-110) mg/dL 02/28/24 Range/Units 12:09 POC Glucose (mg/dL) 183 H (70-110) mg/dL Microbiology - Last 24 Hours (Table) 02/27/24 02:45 Nasal Screen MRSA/MSSA - Final Nasopharyngeal Swab 02/25/24 11:15 Gram Stain - Final Neck Wound Culture - Final Pseudomonas aeruginosa Klebsiella oxytoca Assessment and Plan (1) Debilitated patient Narrative/Plan: The patient was seen today, along with family members at the request. The patient has some medical lability, and apparently during this admission there was discussion about short-term rehabilitation. Then multiple questions as to how this would affect treatment. These were all answered in detail. They were advised that typically inpatient and short-term rehabilitation, kidney aggressive cancer treatment is not given, as it is typically not covered by insurance. In addition the patient may be too debilitated to be a good candidate for aggressive cancer treatment, which is why they are placed in the ECF anyway. The patient's son stated that apparently they have not been able to get a safe to accept him, because of the complexity of his needs, even if there is an undertaking that he would not be placed on active cancer treatment during his stay. He stated that apparently adult care facilities will not accept him for the same reason. He had questions about starting the patient on his treatment while he was still admitted. He was advised that it would typically not be covered by his insurance, as his treatment does not meet inpatient criteria. In addition given that this treatment will last for about 6 weeks, when partial treatment here, without any definite plan for continuation outpatient would obviously not be optimal. He then wanted to check if it would actually be possible for the patient to stay inpatient for 6 weeks and have his chemoradiation during that time. He was advised that would be a decision that would have to be made by the hospital and was stationed, but again would be highly unlikely to occur given lack of any medical need for the same A detailed discussion was had regarding the above aspects. They expressed understanding of the same. I also discussed the case In detail with Case Management, who informed me that the patient had actually been accepted to a couple of facilities in the [facility] area! She also felt that it would be unlikely that adult care facilities would refuse the patient because of him having a PEG tube and tracheostomy since the [facility] will handle patients of this nature. 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
[2024-02-28 17:20] LABS: Glucose,Whole Blood 191 mg/dL (70-110)
--- NOTE | 2024-02-28 20:01 | P.PN ---
Progress Note - Text Progress Note Date: 02/28/24 This is a pleasant 83-year-old patient, follows with Dr. Castro. 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 At [facility]. Patient been followed by Dr. Harlan Burns oncologist and radiation oncologist Dr. Calvin Mohan. Patient lives with his . Does use a walker. About a week ago at [facility] patient had a PEG tube placed and tracheostomy tube placed. Patient's sugars have been uncontrolled for 6 some time. Patient now brought in for increasing confusion. And Accu-Cheks. Uncontrolled. At the baseline normally has a bowel movement once or twice a week. Does have intermittent cough. Not able to clear up his sputum well. I was informed that the PET scan done outpatient only showed lymph nodes in the neck. Lighting up Patient is accompanied by his , daughter and son in the room. Patient himself is able to answer simple questions. February 3: Patient was a bit delirious agitated around 2:00 in the morning. Will increase patient Seroquel to 37.5 mg. Patient's PEG tube basis come loose. Surgery consulted. Tolerating bolus feeding. Sodium started to come down. Still has some episodes of slight confusion. Since pain is well-controlled will cut back dose of Neurontin to twice daily from 3 times daily. Also [place] be changed from [place] 10 to [place] 5 every 6 as needed. This was discussed with the son at the bedside. Patient is not been complaining of any pain 02/22. Patient seen and examined. Patient sitting upright in the chair. Getting tube feeding. 5. Patient seen and examined. Patient having increased secretion from the trach site, also complaining of pain in the neck at the trach site. Denies any shortness of breath. Complaining of insomnia as well 02/25/2024 Patient seen and evaluated in follow-up currently sitting up in the chair with son at the bedside. Patient did have a sputum culture and recommending a swab around the trachea site as there is thick green drainage surrounding. Dressing was changed and will monitor closely. Patient is scheduled for mapping with radiation oncology today which is currently pending. Patient is maintained on tube feedings with Glucerna with dietary following and blood sugars have been well-controlled on current regimen. Will continue with sliding scale along with long-acting. Follow-up on repeat labs in the a.m. and replace electrolytes per protocol. Son at the bedside reports patient also will be going to [facility] for strength mobility on discharge. Patient is afebrile denies chest pain or worsening shortness of breath. 02/26/2024 Patient is seen in follow-up currently sitting up in bed with no acute overnight issues. Patient having increased copious secretions noted around the trachea that persists and will start antibiotics, cultures were obtained and pending and sputum cultures preliminary showing gram-negative bacilli. Will consult infectious disease and appreciate input and recommendations. Will also consult pulmonary. Patient is currently afebrile and denies any worsening shortness of breath. Patient is maintained on trach collar and did undergo mapping with radiation. Patient family is awaiting to speak with oncology regarding treatment plan moving forward. PT/OT following as well as patient will need rehab for some strength and mobility. Dietary following as well and patient is maintained on bolus feeds of tube feeding. Continue monitoring Accu-Cheks before meals and at bedtime. 02/27/2024 Patient is seen in follow-up today after having an extended conversation with oncology regarding treatment plan. Family is concerned that if he does go to rehab that he will not initiate treatment and overall care will be delayed. Family now working on possible private pay options or in the house home care and social work following working on providing resources. Patient's sputum culture showing Pseudomonas and cultures of the wound around the tracheostomy finalized showing Pseudomonas along with Klebsiella oxytoca and infectious diseases following. Patient is maintained on meropenem and will be adjusted per ID. Patient is afebrile with no worsening shortness of breath. Patient maintained on bolus feeds and reports he feels full although according to dietary, caloric intake is insufficient. Blood sugars are well-controlled on current regimen and will continue. Per one of the sons at the bedside, patient will need testing strips along with needles and additional insulin for discharge. February 28, 2024: Patient sitting up by the chair by the window. Patient's son at the bedside. Pain well-controlled. Tolerating tube feeding. Sleeping well. Confusion since presentation is resolved. I discussed with Dr. Alvarez from ID. Patient to be discharged on ciprofloxacin. Case management is looking into home care etc. Patient Seroquel is to be discontinued while patient is on ciprofloxacin. Will increase dose of trazodone for that time. [Total time spent today about 1 hour with over 40 minutes of discussion.-Including patient and the son the nurse ID, director of social media marketing] Physical examination: VITAL SIGNS: 97.5, 87, 17, 124/61, 98% on 2 L trach collar GENERAL: Sitting up in a chair EYES: Pupils equal. Conjunctiva apurva l. HEENT: External appearance of nose and ears normal, oral cavity grossly normal. Tracheostomy. NECK: JVD not raised; masses not palpable. HEART: First and second heart sounds are normal; no edema. LUNGS: Respiratory rate normal; decreased breath sounds some crackles. ABDOMEN: Soft, nontender, liver spleen not palpable, no masses palpable. Feeding tube-basis come loose PSYCH: Patient is able to answer simple questions l. MUSCULOSKELETAL:No Clubbing/cyanosis;muscles-grossly intact. OA INVESTIGATIONS, reviewed in the clinical context: February 3: Sodium 153 potassium 3.7 chloride 118 BUN 37 creatinine 0.55 February l 2: Sodium 155 potassium 3.9 chloride 117 BUN 48 creatinine 0.62 calcium 10.9 February 20, 2024: White count 13.1 hemoglobin 9.4 platelets 345 sodium 147 potassium 4.2 BUN 16 creatinine 0.9 blood glucose 361 troponin I less than 0.012 EKG tracing personally reviewed by me-normal sinus rhythm. 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 Including hypernatremia from free water deficit: Much improved Collect underlying electrolyte abnormalities Seroquel 37.5 working well. Trazodone -Diabetes mellitus type 2, uncontrolled with hyperglycemia: Better Apparently patient was not getting a diabetic compliant feeding. Started on Glucerna Levemir 16 units nightly. NovoLog 3 units with bolus feeding 4 times a day. With sliding scale coverage. -Hypernatremia, severe. From free water deficit likely from hyperglycemia and decreased oral intake: Corrected Given free water and's half saline. -PEG tube feeding Glucerna-bolus feeding. Dietitian consulted. 4 times a day. Free water 150 cc before and after each feeding Patient had aspiration on modified barium swallow-n.p.o. -PEG tube some dislodgment at the bases, off. Patient seen by Dr. Magaña. PEG tube adjusted. No surgical intervention -Tracheostomy with care -Essential hypertension Toprol-XL 25 mg. 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 Being followed by Dr. Harlan Burns from oncology and Dr. Calvin Mohan from radiation oncology -Medical debility y, multifactorial -DNR Advance care planning [February 21, 2024] This was discussed with the patient, his , daughter, son-in-law at the bedside. Multiple questions were answered. Patient is to be treated otherwise but patient will be a DNR. Time spent about 25 minutes Spoke at length with the son at the bedside. Planning to take the patient home. All home care. Ciprofloxacin for outpatient.
[2024-02-28 21:28] LABS: Glucose,Whole Blood 83 mg/dL (70-110)
[2024-02-29 07:24] LABS: Glucose,Whole Blood 115 mg/dL (70-110)
[2024-02-29 08:21] VITALS: BP 127/65; PULSE 90; RESP 18; TEMP 98.4
--- NOTE | 2024-02-29 11:28 | CDI ---
Documentation Clarification Form Date: 02/29/2024 10:46:46 AM From: Amara Mane RN, CCDS Phone: [phone] Admit Date: 02/21/2024 06:05:00 PM Patient Name: Amari Silva Visit Number: [id number] Discharge Date: ATTENTION: The Clinical Documentation Specialists (CDI) and [facility] Coding Staff appreciate your assistance in clarifying documentation. Please respond to the clarification below the line at the bottom and electronically sign. The CDI & [facility] Coding staff will review the response and follow-up if needed. Please note: Queries are made part of the Legal Health Record. If you have any questions, please contact the author of this message via ITS. Dr. Santiago Reynolds There is documentation of trach site cellulitis. Additional clarification is requested. History/Risk Factors: Diabetes, Hypertension, Hyperlipidemia, throat cancer Clinical Indicators: 83-year-old male history of throat cancer diagnosed December 2023 in this patient who did have a recent tracheostomy done at outside facility about 2 weeks ago. He had some erythema around the trach site. His Sputum Culture positive for Pseudomonas and Klebsiella 02/27 VS 131/68 87 22 98 5/L trach collar 02/27 ID progress note: Cellulitis, Neck Patient presented to hospital with generalized weakness did have mild elevated white count no complaining of mild cough with sputum production and also noted to have some purulent secretion around the trach site but no significant cellulitis with a sputum culture growing gram-negative bacilli. CXR: No acute process. 02/27 Pulmonary progress note: No evidence of pneumonia on the chest x-ray. Treatment: Cefepime HCL 2 GM IVPB Q 8 HRS 02/25-02/28 Vancomycin 1,500 MG IVPB Q 12 HRS PTD 02/25-02/25 Tracheostomy site care per protocol Can you please clarify trach site cellulitis, cellulitis neck? Significant of sputum culture growing gram-negative bacilli? [ x ] Trach site cellulitis is infection at the stoma, present on admission [ ] Cellulitis of neck is not a complication of the tach, present on admission [ ] Other, please specify [ ] Unable to determine (Template Last Revised: December 2020) MTDD
--- NOTE | 2024-02-29 12:35 | P.PN ---
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 Based on these findings he had been sent to ENT at [facility] in [place] and had undergone tracheostomy tube insertion and PEG tube placement. He is following here now with Dr. Niko Wang and Dr. Mohan for chemo and radiation to start soon. He presented here to the emergency room on 02/20/2024 with vague symptoms of generalized weakness, hallucinations, O2 saturations in the 80s. He was found to have diabetes mellitus with uncontrolled hyperglycemia, hypernatremia, metabolic encephalopathy. We are consulted today 02/26/2024 after the patient developed some blood from his tracheostomy tube after being suctioned. His sputum culture is positive for Pseudomonas aeruginosa. White count 6.4. Hemoglobin 8.5. Platelets 227. Sodium 139. Potassium 4.0. BUN 15. Creatinine 0.5. Glucose 171. AST 52. ALT 55. He has been initiated on cefepime and vancomycin. Lovenox for DVT prophylaxis. He is on Levemir and NovoLog for glucose control. No bleeding noted from the tracheal tube now. No hemoptysis. Admission chest x-ray revealed no consolidation. No pneumothorax. Midline tracheostomy tube in position. He is maintaining good O2 saturations up to 99% on 28% FiO2 via trach collar. Afebrile. Hemodynamically stable. The patient is seen today February 27, 2024 in follow-up on the regular medical floor. He is currently sitting up in a chair. Awake and alert in no acute distress. Denies any worsening shortness of breath, cough or congestion. No further bleeding from his tracheostomy tube. Follow-up chest x-ray shows no acute pulmonary process. He is maintaining good O2 saturations in the mid to upper 90s on 20% FiO2 via trach collar. White count 7.9. Hemoglobin 9.6. Platelets 255. Sodium 140. Potassium 4.0. Bicarb 25. BUN 15. Creatinine 0.5. Glucose 166. Procalcitonin 0.13. He is continued on cefepime. Remains on Lovenox for DVT prophylaxis. The patient is seen today February 28, 2024 in follow-up on the regular medical floor. He is awake and alert in no acute distress. No further blood from his tracheostomy tube. He is up in a chair. Denies any worsening shortness of breath, cough or congestion. Sputum culture was positive for Pseudomonas aeruginosa. Tracheostomy site culture was positive for Pseudomonas aeruginosa and Klebsiella oxytoca. Glucose 122. He remains on cefepime. Lovenox for DVT prophylaxis. The patient is seen today February 29, 2024 in follow-up on the regular medical floor. He remains awake and alert in no acute distress. Sitting up in a chair. Maintaining good O2 saturations in the 90s on 28% FiO2 via trach collar. He remains on antibiotics in the form of cefepime. Lovenox for DVT prophylaxis. Neck wound culture positive for Pseudomonas aeruginosa and Klebsiella oxytoca. Sputum culture positive for Pseudomonas aeruginosa. He remains afebrile. Hemodynamically stable. Glucose 115. Lovenox for DVT prophylaxis. Objective - Vital Signs Vital signs: Vital Signs Temp 98.4 F 02/29/24 07:24 Pulse 90 02/29/24 07:24 Resp 18 02/29/24 07:24 BP 127/65 02/29/24 07:24 Pulse Ox 98 02/29/24 12:23 FiO2 28 02/29/24 12:23 Intake & Output 02/28/24 02/29/24 02/29/24 18:59 06:59 18:59 Intake Total 758 Output Total 865 950 Balance -865 -192 Weight 74 kg Intake: Intake, IV Titration 300 Amount Cefepime 2 gm In Sodium 100 Chloride 0.9% 100 ml @ 25 mls/hr IVPB Q8HR DAWN Rx# :[id number] Sodium Chloride 0.45% 1, 200 000 ml @ 75 mls/hr IV . [id number] DAWN Rx#:[id number] Tube Feeding 333 Other 125 Output: Urine 865 950 Other: Voiding Method Urinal Urinal # Voids 1 1 # Bowel Movements 2 1 - Exam GENERAL EXAM: Alert, very pleasant 83-year-old male, on 28% FiO2 via trach collar, in no apparent distress. HEAD: Normocephalic. EYES: Normal reaction of pupils, equal size. NOSE: Clear with pink turbinates. THROAT: No erythema or exudates. NECK: Tracheostomy tube secured in place. No active bleeding. Bilateral masses, no JVD. CHEST: No chest wall deformity. LUNGS: Equal air entry with no crackles, wheeze, rhonchi or dullness. CVS: S1 and S2 normal with no audible murmur, regular rhythm. ABDOMEN: PEG tube exit site clean and dry. No hepatosplenomegaly, normal bowel sounds, no guarding or rigidity. SPINE: No scoliosis or deformity SKIN: No rashes CENTRAL NERVOUS SYSTEM: No focal deficits, tone is normal in all 4 extremities. EXTREMITIES: There is no peripheral edema. No clubbing, no cyanosis. Peripheral pulses are intact. - Labs CBC & Chem 7: 02/27/24 07:14 02/27/24 07:14 Labs: Abnormal Lab Results - Last 24 Hours (Table) 02/28/24 02/29/24 Range/Units 17:19 07:23 POC Glucose (mg/dL) 191 H 115 H (70-110) mg/dL Microbiology - Last 24 Hours (Table) 02/25/24 11:11 Anaerobic Culture - Final Throat Anaerobic Gm Negative Bacilli 02/27/24 02:45 Nasal Screen MRSA/MSSA - Final Nasopharyngeal Swab Assessment and Plan Assessment: Bleeding from tracheostomy tube post suctioning, stabilized and no active bleeding. Sputum culture positive for Pseudomonas aeruginosa. Neck wound culture positive for Pseudomonas aeruginosa and Klebsiella oxytoca. 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 Number of minutes spent on the visit: 10.
--- NOTE | 2024-02-29 14:36 | P.DS ---
Providers Date of admission: 02/21/24 18:05 Expected date of discharge: 02/29/24 Attending physician: Bay Portillo Consults: 02/21/24 18:26 Consult Physician Routine Consulting Provider: Harlan Burns Consult Reason/Comments: Squamous cell carcinoma Do you want consulting provider notified?: Yes 02/26/24 14:13 Consult Physician Urgent Consulting Provider: Rosalva Segura Consult Reason/Comments: recent trach, shortness of breath Do you want consulting provider notified?: Yes 02/26/24 14:14 Consult Physician Routine Consulting Provider: Santiago Reynolds Consult Reason/Comments: purulence around the newly placed trach Do you want consulting provider notified?: Yes Primary care physician: [facility] Course: This is a pleasant 83-year-old patient, follows with Dr. Castro. 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 At [facility]. Patient been followed by Dr. Harlan Burns oncologist and radiation oncologist Dr. Calvin Mohan. Patient lives with his . Does use a walker. About a week ago at [facility] patient had a PEG tube placed and tracheostomy tube placed. Patient's sugars have been uncontrolled for 6 some time. Patient now brought in for increasing confusion. And Accu-Cheks. Uncontrolled. At the baseline normally has a bowel movement once or twice a week. Does have intermittent cough. Not able to clear up his sputum well. I was informed that the PET scan done outpatient only showed lymph nodes in the neck. Lighting up Patient is accompanied by his , daughter and son in the room. Patient himself is able to answer simple questions. February 3: Patient was a bit delirious agitated around 2:00 in the morning. Will increase patient Seroquel to 37.5 mg. Patient's PEG tube basis come loose. Surgery consulted. Tolerating bolus feeding. Sodium started to come down. Still has some episodes of slight confusion. Since pain is well-controlled will cut back dose of Neurontin to twice daily from 3 times daily. Also [place] be changed from [place] 10 to [place] 5 every 6 as needed. This was discussed with the son at the bedside. Patient is not been complaining of any pain 5/4. Patient seen and examined. Patient sitting upright in the chair. Getting tube feeding. 02/23. Patient seen and examined. Patient having increased secretion from the trach site, also complaining of pain in the neck at the trach site. Denies any shortness of breath. Complaining of insomnia as well 02/25/2024 Patient seen and evaluated in follow-up currently sitting up in the chair with son at the bedside. Patient did have a sputum culture and recommending a swab around the trachea site as there is thick green drainage surrounding. Dressing was changed and will monitor closely. Patient is scheduled for mapping with radiation oncology today which is currently pending. Patient is maintained on tube feedings with Glucerna with dietary following and blood sugars have been well-controlled on current regimen. Will continue with sliding scale along with long-acting. Follow-up on repeat labs in the a.m. and replace electrolytes per protocol. Son at the bedside reports patient also will be going to [facility] for strength mobility on discharge. Patient is afebrile denies chest pain or worsening shortness of breath. 02/26/2024 Patient is seen in follow-up currently sitting up in bed with no acute overnight issues. Patient having increased copious secretions noted around the trachea that persists and will start antibiotics, cultures were obtained and pending and sputum cultures preliminary showing gram-negative bacilli. Will consult infectious disease and appreciate input and recommendations. Will also consult pulmonary. Patient is currently afebrile and denies any worsening shortness of breath. Patient is maintained on trach collar and did undergo mapping with radiation. Patient family is awaiting to speak with oncology regarding treatment plan moving forward. PT/OT following as well as patient will need rehab for some strength and mobility. Dietary following as well and patient is maintained on bolus feeds of tube feeding. Continue monitoring Accu-Cheks before meals and at bedtime. 02/27/2024 Patient is seen in follow-up today after having an extended conversation with oncology regarding treatment plan. Family is concerned that if he does go to rehab that he will not initiate treatment and overall care will be delayed. Family now working on possible private pay options or in the house home care and social work following working on providing resources. Patient's sputum culture showing Pseudomonas and cultures of the wound around the tracheostomy finalized showing Pseudomonas along with Klebsiella oxytoca and infectious diseases following. Patient is maintained on meropenem and will be adjusted per ID. Patient is afebrile with no worsening shortness of breath. Patient maintained on bolus feeds and reports he feels full although according to dietary, caloric intake is insufficient. Blood sugars are well-controlled on current regimen and will continue. Per one of the sons at the bedside, patient will need testing strips along with needles and additional insulin for discharge. February 28, 2024: Patient sitting up by the chair by the window. Patient's son at the bedside. Pain well-controlled. Tolerating tube feeding. Sleeping well. Confusion since presentation is resolved. I discussed with Dr. Alvarez from ID. Patient to be discharged on ciprofloxacin. Case management is looking into home care etc. Patient Seroquel is to be discontinued while patient is on ciprofloxacin. Will increase dose of trazodone for that time. [Total time spent today about 1 hour with over 40 minutes of discussion.-Including patient and the son the nurse ID, forensic social worker] February 282023: Patient in the recliner. Tolerating tube feeding well. Accu-Cheks well- controlled. Patient had no pain not require any OxyContin or [place] that was prescribed from home. This to being discontinued. Also spoke to the son that Neurontin can be changed to 1 mg nightly. Insulin was discussed. Tube feeding is being sent home. Patient will follow-up with oncology and PCP. Questions answered. LINA stockings for lower extremity. Patient last documented to walk about 300 feet with a rolling walker on February 26.-Physical therapy. Accu-Cheks: 115 this morning Discussion with the son at the bedside and discharge planning more than 35 minutes INVESTIGATIONS, reviewed in the clinical context: February 21: Sodium 153 potassium 3.7 chloride 118 BUN 37 creatinine 0.55 February l 2: Sodium 155 potassium 3.9 chloride 117 BUN 48 creatinine 0.62 calcium 10.9 February 20, 2024: White count 13.1 hemoglobin 9.4 platelets 345 sodium 147 potassium 4.2 BUN 16 creatinine 0.9 blood glucose 361 troponin I less than 0.012 EKG tracing personally reviewed by me-normal sinus rhythm. 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 Including hypernatremia from free water deficit: Much improved Collect underlying electrolyte abnormalities Seroquel being stopped because of ciprofloxacin. Trazodone 25 mg nightly continue -Diabetes mellitus type 2, uncontrolled with hyperglycemia: Better Apparently patient was not getting a diabetic compliant feeding. Started on Glucerna Levemir 16 units nightly. NovoLog 3 units with bolus feeding 4 times a day. With sliding scale coverage. -Hypernatremia, severe. From free water deficit likely from hyperglycemia and decreased oral intake: Corrected Given free water and's half saline. -PEG tube feeding Glucerna-bolus feeding. Dietitian consulted. 4 times a day. Free water 150 cc before and after each feeding Patient had aspiration on modified barium swallow-n.p.o. -PEG tube some dislodgment at the bases, off. Patient seen by Dr. Magaña. PEG tube adjusted. No surgical intervention -Tracheostomy with care -Essential hypertension Toprol-XL 25 mg. Zestoretic-discontinued -Hyperlipidemia Lipitor -Primary osteoarthritis Jeff[place]onton and OxyContin from home Julia discontinued. Also dose of Neurontin decreased to 200 g twice daily. 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 Squamous cell carcinoma. Being followed by Dr. Harlan Burns from oncology and Dr. Calvin Mohan from radiation oncology -Medical debility y, multifactorial -DNR Advance care planning [February 21, 2024] This was discussed with the patient, his , daughter, son-in-law at the bedside. Multiple questions were answered. Patient is to be treated otherwise but patient will be a DNR. Time spent about 25 minutes Disposition: Home Plan - Discharge Summary Discharge Rx Participant: Yes New Discharge Prescriptions: New traZODone HCL [Desyrel] 25 mg PO HS #30 tab INSULIN ASPART (NovoLOG) [NovoLOG (formulary)] 3 unit SQ QID #1 each Sennosides-Docusate Sodium [Senokot-S] 2 each PO HS #60 tab Acetaminophen Tab [Tylenol] 650 mg PO Q6HR PRN tab PRN Reason: Fever and/ or Mild Pain Ciprofloxacin HCl [Cipro] 500 mg PO Q12HR #20 tab Continue amLODIPine [Norvasc] 10 mg PEG/G-TUBE HS Ferrous Sulfate [Iron (65 MG Elemental)] 325 mg PEG/G-TUBE DAILY Atorvastatin [Lipitor] 40 mg PEG/G-TUBE HS Insulin Aspart [NovoLOG Flexpen] See Protocol SQ AC-TID #1 each Metoprolol Succinate (ER) [Toprol XL] 25 mg PEG/G-TUBE DAILY Changed Gabapentin [Neurontin] 200 mg PEG/G-TUBE BID #0 Insulin Glargine,Hum.rec.anlog [Lantus Solostar Pen] 16 units SQ HS #0 Discontinued Lisinopril-Hctz 20-25 mg [Zestoretic 20-25] 1 tab PEG/G-TUBE DAILY HYDROcodone/APAP 10-325MG [[place] 10-325] 1 tab PEG/G-TUBE Q6HR PRN PRN Reason: Pain oxyCODONE HCL [Oxycodone HCl] 10 mg PEG/G-TUBE Q6H PRN PRN Reason: Pain Discharge Medication List amLODIPine [Norvasc] 10 mg PEG/G-TUBE HS 04/16/19 [History] Atorvastatin [Lipitor] 40 mg PEG/G-TUBE HS 02/21/24 [History] Ferrous Sulfate [Iron (65 MG Elemental)] 325 mg PEG/G-TUBE DAILY 02/21/24 [History] Metoprolol Succinate (ER) [Toprol XL] 25 mg PEG/G-TUBE DAILY 02/21/24 [History] Acetaminophen Tab [Tylenol] 650 mg PO Q6HR PRN tab 02/29/24 [Rx] Ciprofloxacin HCl [Cipro] 500 mg PO Q12HR #20 tab 02/29/24 [Rx] Gabapentin [Neurontin] 200 mg PEG/G-TUBE BID #0 02/29/24 [Rx] INSULIN ASPART (NovoLOG) [NovoLOG (formulary)] 3 unit SQ QID #1 each 02/29/24 [Rx] Insulin Aspart [NovoLOG Flexpen] See Protocol SQ AC-TID #1 each 02/29/24 [Rx] Insulin Glargine,Hum.rec.anlog [Lantus Solostar Pen] 16 units SQ HS #0 02/29/24 [Rx] Sennosides-Docusate Sodium [Senokot-S] 2 each PO HS #60 tab 02/29/24 [Rx] traZODone HCL [Desyrel] 25 mg PO HS #30 tab 02/29/24 [Rx] Follow up Appointment(s)/Referral(s): Yefri Castro DO [Primary Care Provider] - 1-2 days Lawrence Mohan MD [STAFF PHYSICIAN] - 03/05/24 9:45 am [facility], [REFERRING] - 02/29/24 6:00 pm [facility] [NON-STAFF] - As Needed Harlan Burns MD [STAFF PHYSICIAN] - 10 Days (The office was not avaiable to answer call please call and make follow up appointment.) Ted Barry [NON-STAFF] - As Needed Discharge Disposition: HOME WITH HOME HEALTH SERVICES
--- NOTE | 2024-02-29 16:55 | P.PN ---
Subjective Progress Note Date: 02/29/24 Principal diagnosis: Reason for follow-up is pneumonia and trach site cellulitis Patient is a 83-year-old male with a past medical history significant for diabetes mellitus hypertension hyperlipidemia osteoarthritis history of throat cancer diagnosed December 2023 in this patient who did have a recent tracheostomy done at outside facility about 2 weeks ago patient has been brought into the hospital for definitive control his blood sugar shortness of breath and fatigue noticed to have some erythema around the trach site and concerning for pneumonia. On today's evaluation her that is 02/29/2024,the patient remains to be afebrile, patient is on 5 L trach collar supplemental oxygen and denies any shortness of breath no chest pain or worsening cough.Patient denies having any nausea or vomiting, no abdominal pain and no diarrhea has been reported, feeling better. No new labs has been repeated today Objective - Vital Signs Vital signs: Vital Signs Temp 98.4 F 02/29/24 07:24 Pulse 90 02/29/24 07:24 Resp 18 02/29/24 07:24 BP 127/65 02/29/24 07:24 Pulse Ox 98 02/29/24 12:23 FiO2 28 02/29/24 12:23 Intake & Output 02/28/24 02/29/24 02/29/24 18:59 06:59 18:59 Intake Total 758 Output Total 865 950 Balance -865 -192 Weight 74 kg Intake: Intake, IV Titration 300 Amount Cefepime 2 gm In Sodium 100 Chloride 0.9% 100 ml @ 25 mls/hr IVPB Q8HR DAWN Rx# :[id number] Sodium Chloride 0.45% 1, 200 000 ml @ 75 mls/hr IV . [id number] DAWN Rx#:[id number] Tube Feeding 333 Other 125 Output: Urine 865 950 Other: Voiding Method Urinal Urinal # Voids 1 1 # Bowel Movements 2 1 - Exam GENERAL DESCRIPTION: An elderly male up in the chair in no distress RESPIRATORY SYSTEM: Unlabored breathing , coarse breath sounds bilaterally HEART: S1 S2 regular rate and rhythm , ABDOMEN: Soft , no tenderness EXTREMITIES: No edema feet - Labs CBC & Chem 7: 02/27/24 07:14 02/27/24 07:14 Labs: Abnormal Lab Results - Last 24 Hours (Table) 02/28/24 02/29/24 Range/Units 17:19 07:23 POC Glucose (mg/dL) 191 H 115 H (70-110) mg/dL Microbiology - Last 24 Hours (Table) 02/25/24 11:11 Anaerobic Culture - Final Throat Anaerobic Gm Negative Bacilli 02/27/24 02:45 Nasal Screen MRSA/MSSA - Final Nasopharyngeal Swab Assessment and Plan (1) Tracheobronchitis Status: Acute Code(s): J40 - BRONCHITIS, NOT SPECIFIED ACUTE OR CHRONIC SNOMED Code(s): 00491667 (2) Pseudomonas aeruginosa infection Status: Acute Code(s): A49.8 - OTHER BACTERIAL INFECTIONS OF UNSPECIFIED SITE SNOMED Code(s): 62083125 (3) Cellulitis, neck Status: Acute Code(s): L03.221 - CELLULITIS OF NECK SNOMED Code(s): 87353269 Plan: 1patient presented to hospital with generalized weakness did have mild elevated white count no complaining of mild cough with sputum production and also noted to have some purulent secretion around the trach site but no significant cellulitis with a sputum culture growing gram-negative bacilli 2-penicillin allergy that will limit the number of antibiotics safe to use 3-patient did have a procalcitonin 0.13, chest x-ray has been negative so far cultures currently growing Pseudomonas aeruginosa 4-patient seem to have shown some clinical improvement, plan is to finish therapy with oral Cipro Seroquel discontinued/put on hold by the discharging physician Dictation was produced using [employer] dictation software. please excuse any grammatical, word or spelling errors. Time with Patient: Less than 30
== END 2024-02-29 13:46 | disposition home health service (06) | DRG 637 ==
LOC: EC 22:18 → 6NMEDSUR 02-21 01:20 → OBSVTOIN 02-21 18:05 → 5NMEDONC 02-25 18:40
PROVIDERS: ADMIT Hospitalist; ATTEND Hospitalist
PROC: 3E0336Z Introduction of Nutritional Substance into Peripheral Vein, Percutaneous Approach (ICD-10-PCS; principal; 2024-02-22)
DX: E11.65 Type 2 diabetes mellitus with hyperglycemia (principal); G93.41 Metabolic encephalopathy; E87.0 Hyperosmolality and hypernatremia; L03.221 Cellulitis of neck; J95.02 Infection of tracheostomy stoma; F05 Delirium due to known physiological condition; I10 Essential (primary) hypertension; E78.5 Hyperlipidemia, unspecified; C14.0 Malignant neoplasm of pharynx, unspecified; B96.5 Pseudomonas (aeruginosa) (mallei) (pseudomallei) as the cause of diseases classified elsewhere; E11.649 Type 2 diabetes mellitus with hypoglycemia without coma; J40 Bronchitis, not specified as acute or chronic; M19.91 Primary osteoarthritis, unspecified site; E86.0 Dehydration; Z87.891 Personal history of nicotine dependence; Z88.0 Allergy status to penicillin; Z88.1 Allergy status to other antibiotic agents; Z96.642 Presence of left artificial hip joint
CPT/HCPCS: 36415; 71046; 74018; 77334; 80048; 80053; 81003; 83036; 83605; 83735; 84100; 84145; 84484; 85025; 85610; 85730; 86140; 87070; 87075; 87077; 87186; 87205; 93005; 94760; 96360; 99285

== ENCOUNTER → 2024-03-05 | Outpatient (CLI) | payer MEDICARE, OTHER ==
[2024-03-05 14:46] LABS: Basophils # (A) 0.03 X 10*3/uL (0.00-0.10); Basophils % (A) 0.4 %; Eosinophils # (A) 0.04 X 10*3/uL (0.04-0.35); Eosinophils % (A) 0.5 %; HCT 33.3 % (39.6-50.0); HGB 9.4 g/dL (13.0-17.0); Lymphocytes % (A) 11.9 %; MCHC 28.2 g/dL (32.0-37.0); MCV 85.2 FL (80.0-97.0); Mean Platelet Volume 11.5 FL (9.5-12.2); Monocytes # (A) 1.27 X 10*3/uL (0.20-1.00); Monocytes % (A) 15.2 %; NRBC Per 100 WBC 0 X 10*3/uL (0.00-0.01); Neutrophils # (A) 6.02 X 10*3/uL (1.80-7.70); Neutrophils % (A) 71.8 %; Platelet Count 414 X 10*3/uL (140-440); RBC 3.91 X 10*6/uL (4.40-5.60); WBC 8.38 X 10*3/uL (4.50-10.00)
== END | disposition home or self-care (01) ==
LOC: LABWHC1 11:21
PROVIDERS: ATTEND Radiology Radiation Oncology
DX: C77.0 Secondary and unspecified malignant neoplasm of lymph nodes of head, face and neck (principal); C12 Malignant neoplasm of pyriform sinus
CPT/HCPCS: 36415; 85025

== ENCOUNTER → 2024-05-26 | Outpatient (CLI) | payer MEDICARE, OTHER ==
--- NOTE | 2024-07-22 11:13 | FL ---
Exam Date: 06/18/2024 11:46 AM. Modified barium swallow for dysphagia. Consistencies administered: Various consistency of barium. Fluoro time: .1 FL TIME 72 SECS No images were sent to PACS. Please see speech pathology report. DAP: Not reported mGym2 Gycm2 DOWNTIME PATIENT. SPOT IMAGES UNDER POLLO MEAD [id number] FL TIME [address] JULES AND YAYO FROM [facility] [place] [facility] PT GIVEN THIN BA, PUDDING, HONEY AND NECTAR HX OF MALIGNANT NEOPLASM OF PYRIFORM SINUS STAGE [facility], , 07/22/2024 11:11 AM
== END | disposition home or self-care (01) ==
LOC: RADFLMAIN 11:29
PROVIDERS: ATTEND Radiology Radiation Oncology
DX: C12 Malignant neoplasm of pyriform sinus (principal); C77.0 Secondary and unspecified malignant neoplasm of lymph nodes of head, face and neck
CPT/HCPCS: 74230

== ENCOUNTER → 2024-07-24 | Outpatient (CLI) | payer MEDICARE, OTHER ==
--- NOTE | 2024-07-26 16:22 | PE ---
EXAMINATION TYPE: PET CT fusion skull to thigh DATE OF EXAM: 07/24/2024 CLINICAL INDICATION:Male, 83 years old with history of C12 MALIGNANT NEOPLASM OF PYRIFORM SINUS; TECHNIQUE: Following the intravenous administration of 11.5 mCi of F-18 FDG, whole body images are performed from the skull base to the midthigh. Images are reviewed on the computer in the coronal, a xial, and sagittal planes. Reconstructed rotating images are created on independent workstation and reviewed on the computer. A non-contrast CT is performed in conjunction with the PET scan. Glucose level 101 mg/dL CT DLP: 665. mGycm, Automated exposure control for dose reduction was used. COMPARISON: CT 02/02/2024, PET/CT 01/24/2024, MRI: None FINDINGS: Mediastinal SUV mean is 2.7. Hepatic parenchyma SUV mean is 3.4. SKULL BASE AND NECK: The hypopharynx mass seen on prior are not definitively visualized majority of the lymph nodes also i n the neck have decreased in metabolic activity. There is some physiologic uptake within the muscles posterior to the pharynx which is elongated in the longus colli muscles. * Left hypopharynx mucosal mass no longer visualized previously Max SUV 17.7. * Lymph nodes within the neck are decreased in size from prior with persistent right neck lymph node measuring 4 mm Max SUV 1.7 and in the left neck there remains a small lymph node max SUV 3.8 measuri ng 8 mm which is previously 17 mm. * Paranasal sinus disease uptake measuring Max SUV in the right maxillary sinus 8.2 and in the left anterior ethmoid air cells 9.1. * Uptake in the left maxillary sinus max SUV 12.9 previously 8.2 and on the right max SUV 13.9 previ ously 8.2. Anterior ethmoid air cell uptake poorly evaluated * Uptake in the posterior trachea at the thoracic inlet max SUV 7.2 likely infectious/inflammatory i n nature. * Uptake around the tracheostomy thought to be secondary to infectious/inflammatory process CHEST, MEDIASTINUM, AND HILAR REGION: * No suspicious radiotracer activity. * AP window uptake max SUV 3.9 thought to be in the vascular structures. * Right pulmonary hilum lymph node max SUV 4.5 (hilum lymph nodes max 2.1 ABDOMEN AND PELVIS: No suspicious radiotracer activity. MUSCULOSKELETAL STRUCTURES: No suspicious radiotracer activity. OTHER CT: Atherosclerosis of the coronary arteries including the carotid bifurcations the intracrania l internal carotid arteries. PEG tube present in appropriate position.. Multilevel degeneration freitas es throughout the spine. Mild emphysema changes. Left hip arthroplasty changes with hardware intact. Moderate amount of stool throughout the colon. Right simple appearing renal cyst. Left simple appeari ng renal cysts. IMPRESSION: 1. Positive associated therapy with hypopharynx mass no longer visualized only on small lymph node o n the left with mild uptake remaining. 2. Mild uptake around the tracheostomy cannula posterior trachea: For inflammation. 3. Increased uptake within the bilateral maxillary sinuses and ethmoid air cells correlate for paran denia sinus disease. Consider evaluation with MRI sinus with IV contrast as clinically warranted to ex clude mass. 4. Uptake within the bilateral pulmonary prashant possibly reactive. Attention on follow-up. [facility], Workstation: [id number], 07/26/2024 4:20 PM
== END | disposition home or self-care (01) ==
LOC: RADPETMAIN 12:33
PROVIDERS: ATTEND Radiology Radiation Oncology
DX: C12 Malignant neoplasm of pyriform sinus (principal); R93.89 Abnormal findings on diagnostic imaging of other specified body structures
CPT/HCPCS: 78815; A9552

== ENCOUNTER → 2024-08-29 | Outpatient (CLI) | payer MEDICARE, OTHER ==
--- NOTE | 2024-08-29 12:36 | FL ---
EXAMINATION TYPE: FL barium swallow w video DATE OF EXAM: 08/29/2024 12:12 PM COMPARISON: None. 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 There is transient penetration with all substances but no evidence of aspiration. There is no evidence of obstruction. 1 minute 32 seconds of fluoroscopy. No images submitted. DAP are not provided. IMPRESSION: 1. See above. [facility], , 08/29/2024 12:33 PM
== END | disposition home or self-care (01) ==
LOC: RADFLMAIN 10:59
PROVIDERS: ATTEND Radiology Radiation Oncology
DX: C12 Malignant neoplasm of pyriform sinus (principal); C77.0 Secondary and unspecified malignant neoplasm of lymph nodes of head, face and neck
CPT/HCPCS: 74230

== ENCOUNTER → 2024-10-23 | Outpatient (CLI) | payer MEDICARE, OTHER ==
--- NOTE | 2024-10-23 16:03 | PE ---
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 Images are reviewed on the computer in the coronal , axial, and sagittal planes. Reconstructed rotating images are created on independent workstation a nd reviewed on the computer. A non-contrast CT is performed in conjunction with the PET scan. Gluco se level 98 mg/dL CT DLP: 649.96 mGycm, Automated exposure control for dose reduction was used. COMPARISON: CT 02/02/2024, PET/CT 07/24/2024, 01/24/2024, MRI: None FINDINGS: Mediastinal SUV mean is . Hepatic parenchyma SUV mean is . SKULL AND NECK: No new suspicious FDG uptake to suggest residual or recurrent malignancy. Mild mucosal thickening of the right maxillary sinus. Moderate mucosal thickening of the left maxilla ry sinus. Moderate mucosal thickening of the left frontal sinus and ethmoid sinuses. Redemonstration of FDG uptake within the anterior left ethmoid sinus and left maxillary sinus. Demonstrates a maximum SUV of 17.2 in the left maxillary sinus, previously 8.2. Demonstrates a maximum SUV of 6.6 in the le ft anterior ethmoid air cells, previously 9.1. CHEST, MEDIASTINUM, AND HILAR REGION: No suspicious radiotracer activity. ABDOMEN AND PELVIS: No suspicious radiotracer activity. MUSCULOSKELETAL STRUCTURES: No suspicious radiotracer activity. OTHER CT: Interval removal of tracheostomy cannula. Bilateral carotid bulb calcifications. Multilevel degenerative changes of the spine. Moderate atherosclerotic calcification of the aorta and its branc hes. Moderate coronary arterial calcifications. Mild cardiomegaly. Bilateral gynecomastia. Small hiat al hernia. PEG tube is identified. Left renal 2.3 cm cyst. Right renal 4.1 cm cyst. Additional right renal 2.2 cm cyst. Penile calcifications identified. Centrilobular emphysematous changes. Postsurgica l changes from left hip arthroplasty. IMPRESSION: 1. No suspicious radiotracer activity to suggest recurrent/residual malignancy. 2. Redemonstration of paranasal sinus disease with FDG uptake within the left maxillary sinus and le ft anterior ethmoid air cells. Likely related to inflammation/infection. [facility], , 10/23/2024 4:00 PM
== END | disposition home or self-care (01) ==
LOC: RADPETMAIN 09:32
PROVIDERS: ATTEND Internal Medicine Hematology & Oncology
DX: C76.0 Malignant neoplasm of head, face and neck (principal); R93.7 Abnormal findings on diagnostic imaging of other parts of musculoskeletal system
CPT/HCPCS: 78815; A9552

== ENCOUNTER → 2025-04-28 | Outpatient (CLI) | payer MEDICARE, OTHER ==
[2025-04-28 12:15] LABS: African American GFR (CKD) >90 (>60 ml/min/1.73 sqM); Blood Urea Nitrogen 22 mg/dL (9-20); Non-African American GFR(CKD) >90 (>60 ml/min/1.73 sqM)
--- NOTE | 2025-04-28 13:08 | CT ---
EXAMINATION TYPE: CT soft tissue neck w con DATE OF EXAM: 04/28/2025 12:36 PM COMPARISON: 02/02/2024. 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 Axial sections with coronal and sagittal reformats were obtained. Contrast used:100 mL of Isovue 300 with IV Contrast, (None if empty) Oral contrast used: (None if empty) CT DLP: 2889 mGycm, Automated exposure control for dose reduction was used. FINDINGS: Bilateral lymphadenopathy seen on prior imaging has resolved. No enlarged lymph nodes by CT criteria remain. The visualized arterial vasculature is patent. Mild intralobular emphysema changes in lung ap ices. Mild paranasal sinus mucosal thickening worse next sinuses which are nearly completely opacifie d. No orbits and globes are partially visualized and intact. Intracranial atherosclerosis present. Intracranial vasculature visualized is patent. The temporal man dibular joints are symmetrical. Postsurgical changes at the level of the trachea from prior tracheost shorty cannula. 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 Nuchal ligament desiccation i s present. No suspicious osseous lesions definitively visualized. IMPRESSION: Positive response to therapy with resolution of prior enlarged lymph nodes in the bilateral neck, oss eous similar PET/CT 10/23/2024. Continued surveillance recommended. [facility], , 04/28/2025 1:06 PM
== END | disposition home or self-care (01) ==
LOC: RADCTMAIN 10:29
PROVIDERS: ATTEND Internal Medicine Hematology & Oncology
DX: C76.0 Malignant neoplasm of head, face and neck (principal); D50.9 Iron deficiency anemia, unspecified; E78.5 Hyperlipidemia, unspecified; I10 Essential (primary) hypertension; Z71.3 Dietary counseling and surveillance
CPT/HCPCS: 82565; 84520; 70491; 36415; Q9967